=== PATIENT | female | born 1965 | race Caucasian/White ===

== ENCOUNTER 2019-06-10 20:58 | Inpatient (IN) ==
[2019-06-10 21:33] LABS: Basophils % 0.3 % (0.1-2.0); Eosinophils % 0.6 % (0.1-12.0); Hematocrit 40.5 % (37.0-47.0); Hemoglobin 12.8 g/dL (12.2-16.2); Lymphocytes # 0.4 K/mm3 (0.7-4.5); Lymphocytes % 12.1 % (10-50); Mean Corpuscular HGB Conc 31.7 g/dL (31.8-35.4); Mean Corpuscular Volume 87.5 fl (81-99); Monocytes # 0.1 K/mm3 (0.1-1.0); Neutrophils # 2.6 K/mm3 (1.8-7.8); Platelet Count 176 K/mm3 (142-424); Red Blood Count 4.63 M/mm3 (4.20-5.40); Red Cell Distribution Width 14.7 % (11.5-17.5)
[2019-06-10 21:47] LABS: Alanine Aminotransferase 13 U/L (12-78); Albumin Level 3.1 gm/dL (3.4-5.0); Albumin/Globulin Ratio 0.7 (1.1-1.8); Alkaline Phosphatase 171 U/L (46-116); Anion Gap 17.2 mEq/L (5-15); Aspartate Amino Transferase 11 U/L (15-37); Bilirubin,Total 0.9 mg/dL (0.2-1.0); Blood Urea Nitrogen 10 mg/dL (7-18); Calcium 9.1 mg/dL (8.5-10.1); Carbon Dioxide 22 mmol/L (21.0-32.0); Chloride 100 mmol/L (98-107); Globulin 4.7 gm/dl (1.3-3.2); Glucose 142 mg/dL (74-106); Sodium 136 mmol/L (136-145); Total Protein,Serum 7.8 gm/dL (6.4-8.2)
[2019-06-10 21:59] LABS: Microscopic, Urine URINE MICROSCOPIC (MICROSCOPIC)
[2019-06-10 22:03] LABS: Appearance,Urine CLEAR (Clear); Blood, Urine Negative (Negative); Color,Urine YELLOW (Yellow); Glucose,Urine (UA) Negative (Negative); Ketones,Urine Negative (Negative); Leukocyte Esterase,Urine TRACE (Negative); Protein,Urine Negative (Negative); Specific Gravity, Urine 1.025 (1.005-1.030)
[2019-06-10 22:04] LABS: Bilirubin,Urine Negative (Negative)
[2019-06-10 22:19] LABS: Amylase 23 U/L (25-115)
[2019-06-10 22:34] LABS: Bacteria,Urine Trace /lpf
--- NOTE | 2019-06-10 22:44 | Emergency Department Note ---
ED Disposition Clinical Impression: SIRS (systemic inflammatory response syndrome), Hypothyroidism (acquired) CAP (community acquired pneumonia) Qualifiers: Laterality: right Lung location: lower lobe of lung Qualified Code(s): J18.1 - Lobar pneumonia, unspecified organism Obesity Qualifiers: Obesity type: due to excess calories Obesity classification: adult class 3 (BMI >= 40) Serious obesity comorbidity presence: with serious comorbidity Body mass index: BMI 40.0-44.9 Qualified Code(s): E66.01 - Morbid (severe) obesity due to excess calories; Z68.41 - Body mass index (BMI) 40.0-44.9, adult Disposition: Admitted as Observation Condition on Discharge: Good Referrals: [place] Pereira APRN [Primary Care Provider] - - Critical Care Critical Care Time: No Attestation: On 06/10/19, the high probability of a clinically significant, sudden or life threatening deterioration of the following system(s) required my full and direct attention, intervention and personal management. The time I documented below is in addition to time spent performing reported procedures but includes the following listed in this critical care notation. Medical Decision Making - Medical Records Medical records reviewed: Yes: I reviewed the patient's medical records. - Anthony Inquiry Pt receiving controlled substance: No Vital Signs: 06/10/19 21:00 06/10/19 22:00 Temperature 99.9 F H Temperature Source Oral Pulse Rate [Right Brachial] 133 H 128 H Respiratory Rate 32 H 30 H Blood Pressure [Right Arm] 122/70 121/71 Blood Pressure Mean [Right Arm] 87 87 Blood Pressure Source [Right Arm] Automatic Cuff Automatic Cuff Blood Pressure Position [Right Arm] Sitting Sitting 02 Sat by Pulse Oximetry 97 97 Oxygen Delivery Method Room Air Room Air - Lab Data Lab results reviewed: Yes: I reviewed the patient's lab results. Lab Results 06/10/19 21:04: Influenza Type A Ag Negative, Influenza Type B Ag Negative 06/10/19 21:15: WBC 3.0 L, RBC 4.63, Hgb 12.8, Hct 40.5, MCV 87.5, MCH 27.8, MCHC 31.7 L, RDW 14.7, Plt Count 176, MPV 8.0, Neut % (Auto) 84.0 H, Lymph % (Auto) 12.1, [place] % (Auto) 3.0, Eos % (Auto) 0.6, Baso % (Auto) 0.3, Neut # (Auto) 2.6, Lymph # (Auto) 0.4 L, [place] # (Auto) 0.1, Eos # (Auto) 0.0, Baso # (Auto) 0.0 06/10/19 21:15: Sodium 136, Potassium 3.2 L, Chloride 100, Carbon Dioxide 22, Anion Gap 17.2 H, BUN 10, Creatinine 0.94, Estimated Creat Clear 61, Estimated GFR 62, Est GFR ( Amer) 75, Glucose 142 H, Calcium 9.1, Total Bilirubin 0.9, AST 11 L, ALT 13, Alkaline Phosphatase 171 H, Troponin I < 0.02, Total Protein 7.8, Albumin 3.1 L, Globulin 4.7 H, Albumin/Globulin Ratio 0.7 L 06/10/19 21:15: Lactate 1.2 06/10/19 21:15: Amylase 23 L, Lipase 55 L 06/10/19 21:50: Urine Color Yellow, Urine Appearance Clear, Urine pH 5.0, Ur Specific [place] 1.025, Urine Protein Negative, Urine Glucose (UA) Negative, Urine Ketones Negative, Urine Blood Negative, Urine Nitrate Positive, Urine Bilirubin Negative, Urine Urobilinogen 1.0, Ur Leukocyte Esterase Trace, Urine WBC 3-5, Ur Squamous Epith Cells 3-5, Urine Bacteria Trace Result diagrams: 06/10/19 21:15 06/10/19 21:15 Orders (Tests/Meds): ED MEDICATIONS Generic Name Dose Route Start Last Admin Trade Name Freq PRN Reason Stop Dose Admin Sodium Chloride 1,000 mls @ 999 mls/hr 06/10/19 21:30 06/10/19 21:25 Sod Chlor 0.9% 1000ml Bag IV 06/10/19 22:30 999 mls/hr .[id number] EUSEBIO Administration Discontinued Medications Generic Name Dose Route Start Last Admin Trade Name Freq PRN Reason Stop Dose Admin Ibuprofen 400 mg 06/10/19 21:18 06/10/19 21:26 Motrin 400mg Tablet PO 06/10/19 21:19 Not Given ONCE ONE Ibuprofen 600 mg 06/10/19 21:21 06/10/19 21:25 Motrin 400mg Tablet PO 06/10/19 21:22 600 mg ONCE ONE Administration Ondansetron HCl 4 mg 10/16/19 22:03 06/10/19 22:06 Zofran 4mg/2ml Vial IV 06/10/19 22:04 4 mg ONCE ONE Administration ORDERS Category Date Time Status CT abdomen pelvis wo con Stat Cat Scan 06/10/19 21:59 Ordered XR chest 2V Stat Exams 06/10/19 21:14 Taken Diarrhea 23 Panel, PCR Stat Lab 06/10/19 21:14 Ordered Blood Culture Stat Micro 06/10/19 21:15 Received - Radiology Data #1 Image(s): Chest Image Reviewed: Yes I reviewed the patient's radiology image Preliminary Findings: Abnormal (rt lower changes ) - CT Data CT Scan: Abdomen, Pelvis Time Received: 22:[address] Reviewed: Yes: I have viewed the radiologist's interpretation Preliminary Findings: Normal/NAD - ECG Data Tracing #1 Arrhythmias present: sinus tach Ischemic changes: non-specific ST-T wave changes Nausea/Vomiting/Diarrhea HPI - General Chief complaint: Fever Stated complaint: fever, chills Time Seen by Provider: 06/10/19 21:15 Mode of Arrival: Ambulatory Source of Information: Patient, Relative, Medical Record Limitations: No Limitations Description of Symptoms (Recalled from ER Triage Doc. by RN): Pt c/o fever, cough, chills, vomiting, and weak, pt reports her symptoms started on saturday. no other sympotms reported at this time. 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 with no rash or vomiting and no diarrhea MD complaint: nausea, vomiting Onset (ago): day(s) Associated Abdominal Pain: Yes Associated symptoms: denies other symptoms - Related Data Home Medications Medication Instructions Recorded Confirmed aspirin 81 mg tablet,delayed 81 mg PO QHS tab 09/18/18 06/10/19 release atorvastatin 20 mg tablet 20 mg PO QHS 09/18/18 06/10/19 cholecalciferol (vitamin D3) 1,000 1,000 unit PO DAILY 09/18/18 06/10/19 unit capsule escitalopram 20 mg tablet 75 mg PO DAILY 09/18/18 06/10/19 levothyroxine 100 mcg tablet 100 mcg PO DAILY 09/18/18 06/10/19 montelukast 10 mg tablet 10 mg PO QPM 09/18/18 06/10/19 pantoprazole 40 mg tablet,delayed 40 mg PO DAILY 09/18/18 06/10/19 release potassium chloride ER 20 mEq 20 meq PO DAILY 09/18/18 06/10/19 tablet,extended release topiramate 100 mg tablet 100 mg PO DAILY tab 09/18/18 06/10/19 trazodone 50 mg tablet 50 mg PO QHS tab 09/18/18 06/10/19 Cetirizine HCl [Zyrtec] 10 mg PO DAILY 06/10/19 06/10/19 Docusate Sodium [Colace] 100 mg PO DAILY 06/10/19 06/10/19 Nystatin [Nystatin Cr 100,000 1,000 units TOPICAL DAILY 06/10/19 06/10/19 Units/GM 30GM] Allergies Allergy/AdvReac Type Severity Reaction Status Date / Time acetaminophen [From PERCOCET] Allergy Unknown UPSET Verified 09/22/18 09:49 STOMACH codeine [CODEINE] Allergy Unknown STOMACH Verified 09/22/18 09:49 UPSET hydrocodone [HYDROCODONE] Allergy Unknown Verified 09/22/18 09:49 hydromorphone [From DILAUDID] Allergy Unknown HEART STOP Verified 09/22/18 09:49 oxycodone [From PERCOCET] Allergy Unknown UPSET Verified 09/22/18 09:49 STOMACH Sulfa (Sulfonamide Allergy Unknown Verified 09/22/18 09:49 Antibiotics) [SULFA (SULFONAMIDE ANTIBIOTICS)] [facility] History - Hepatitis A Screen Drug use history?: No High risk sexual behaviors?: No History of sexually transmitted infection?: No Currently employed?: No Childcare worker?: No Do you have indoor plumbing?: Yes Do you have electricity?: Yes Attestation statement:: This patient has been screened for Hepatitis A risk factors. I have reviewed the patient's past medical history: Yes Medical History: Reports:: Atherosclerotic Heart Disease, Hypertension, Urinary Tract Infection Denies:: Diabetes Mellitus Type 1, Diabetes Mellitus Type 2 Comment: History of cardiac stents and hypertension - Social History Smoking Status: Never smoker Alcohol Intake: never Occupational Status: unemployed Housing: house ROS Obtained: Yes All systems reviewed & no additional complaints - Constitutional Constitutional: Denies fever(s) - Eyes Eyes: Denies change in vision - ENT Ears, Nose, Mouth, and Throat: Denies sore throat - Cardiovascular Cardiovascular: Denies chest pain - Respiratory Respiratory: Yes cough - Gastrointestinal Gastrointestingal: Denies: abdominal pain - Genitourinary Female Genitourinary: Denies hematuria - Musculoskeletal Musculoskeletal: Denies joint pain - Integumentary/Breasts Skin/Breast: Denies rash - Neurologic Neurologic: Denies seizure-like activity Physical Exam - General General appearance: alert, obese - Head Head exam: normocephalic - Eye Eye exam: Present: PERRL, EOMI. Absent: scleral icterus - ENT ENT exam: Present: mucous membranes dry - Neck Neck exam: Present: trachea midline - Respiratory Respiratory exam: Present: other (dec bs bilat ). Absent: respiratory distress - Cardiovascular Cardiovascular exam: Present: regular rate, systolic murmur - Abdominal Exam Abdominal exam: Present: soft. Absent: tenderness - Extremities Exam Extremities exam: Absent: calf tenderness - Neurological Exam Neurological exam: Present: alert, CN II-XII intact - Psychiatric Psychiatric exam: Present: normal affect - Skin Skin exam: Absent: rash
[2019-06-11 07:16] LABS: Anion Gap 15.1 mEq/L (5-15); Calcium 8.4 mg/dL (8.5-10.1)
--- NOTE | 2019-06-11 07:23 | Pharmacy Consult Notes ---
[facility] Pharmacy VTE Monitoring - Patient Demographics Admission date: 06/11/19 Report Date: 06/11/19 Time: 07:23 Allergies/Adverse Reactions: Patient Allergies acetaminophen [From PERCOCET] Allergy (Unknown, Verified 09/22/18 09:49) UPSET STOMACH codeine [CODEINE] Allergy (Unknown, Verified 09/22/18 09:49) STOMACH UPSET hydrocodone [HYDROCODONE] Allergy (Unknown, Verified 09/22/18 09:49) hydromorphone [From DILAUDID] Allergy (Unknown, Verified 09/22/18 09:49) HEART STOP oxycodone [From PERCOCET] Allergy (Unknown, Verified 09/22/18 09:49) UPSET STOMACH Sulfa (Sulfonamide Antibiotics) [SULFA (SULFONAMIDE ANTIBIOTICS)] Allergy (Unknown, Verified 09/22/18 09:49) Height: 1.65 m Weight: 117.084 kg Patient Problems: Current Active Problems CAP (community acquired pneumonia) (Acute) SIRS (systemic inflammatory response syndrome) (Acute) Obesity (Acute) Hypothyroidism (acquired) (Acute) - VTE Risk Labs: VTE Related Lab Results Hgb 12.8 g/dL (12.2-16.2) 06/10/19 21:15 Hct 40.5 % (37.0-47.0) 06/10/19 21:15 Plt Count 176 K/mm3 (142-424) 06/10/19 21:15 BUN 8 mg/dL (7-18) 06/11/19 06:50 Creatinine 0.84 mg/dL (0.55-1.02) 06/11/19 06:50 Estimated Creat Clear 68 mL/min (50-200) 06/11/19 06:50 Was VTE Risk Assessment Performed: Yes VTE Score: 5 VTE Risk Level: Low Risk Clinical Trial Participant: No - Prophylaxis VTE Prophylaxis Ordered?: Yes Types of VTE Prophylaxis: TEDS Knee High
[2019-06-11 07:25] LABS: Basophils % 0.3 % (0.1-2.0); Eosinophils % 0.3 % (0.1-12.0); Hematocrit 38.5 % (37.0-47.0); Hemoglobin 11.9 g/dL (12.2-16.2); Lymphocytes % 12.7 % (10-50); Mean Corpuscular HGB Conc 30.9 g/dL (31.8-35.4); Mean Corpuscular Volume 88.9 fl (81-99); Mean Platelet Volume 8.7 fl (7.4-10.4); Monocytes # 0.4 K/mm3 (0.1-1.0); Monocytes % 5.3 % (1.7-9.3); Neutrophils # 6.4 K/mm3 (1.8-7.8); Neutrophils % 81.5 % (37.0-80.0); Platelet Count 186 K/mm3 (142-424); Red Blood Count 4.33 M/mm3 (4.20-5.40); Red Cell Distribution Width 14.7 % (11.5-17.5); White Blood Count 7.9 K/mm3 (4.8-10.8)
--- NOTE | 2019-06-11 09:28 | History & Physical Report ---
*Admission Date: 06/11/19 *Chief complaint: cough *History of present illness: 54-year-old female presented to the ER with complaints of cough, weakness, shortness of breath,and fever. Patient was admitted for possible UTI and pneumonia. Patient reports a history of 3 cardiac stents, hypothyroidism, stress incontinence. Patient was admitted placed on IV antibiotics. [facility] History I have reviewed the patient's past medical history: Yes Medical History: Reports:: Atherosclerotic Heart Disease, Coronary Artery Disease, Hyperlipidemia, Hypertension, Urinary Tract Infection Denies:: Cancer, Diabetes Mellitus Type 1, Diabetes Mellitus Type 2, MRSA *Have you ever received a pneumonia vaccine?: Yes *Have you received a flu vaccine this season?: No Other Medical History: Reports: Arthritis, Hypothyroidism Laterality Cases: Bilateral: Total Knee Replacement Other Surgeries: Yes: Appendectomy, Cholecystectomy, Coronary Stent, Hysterectomy-Total Amputation: No Fractures: No - *Social History Educational Level: Completed High School Smoking Status: Former smoker Tobacco Type: cigarettes # Packs/Day (cigarettes): 1 #Yrs smoked (if former smoker): 30 Smoking End Date: 2008 Alcohol Intake: former Alcohol Intake Frequency:: holidays/special occasions only *Occupational Status:: unemployed, disabled Housing: house Household Members: family *Travel in the last 8 weeks: None Family Hx:: Cancer, Coronary Artery Disease, Hypertension, Stroke Review of Systems - Review of Systems Review of systems:: pertinent systems reviewed and negative unless documented below - Constitutional Reports chills, Reports fever(s), Reports weakness - Eyes Denies irritation - ENT Denies sinus pressure - *Cardiovascular Reports shortness of breath, Denies chest pain at rest - *Respiratory Reports chest congestion, Reports cough, Reports shortness of breath - *Gastrointestinal Denies nausea, Denies vomiting - *Genitourinary Reports urinary incontinence - *Musculoskeletal Denies loss of height - Integumentary/Breasts Denies rash - *Neurologic Denies seizure-like activity - Psychiatric Denies anxiety - Endocrine Denies flushing - Hematologic/Lymphatic Denies enlarged lymph nodes - Allergic/Immunologic Denies tongue swelling Meds Home Medications Medication Instructions Recorded Confirmed Type aspirin 81 mg tablet,delayed 81 mg PO HS tab 09/18/18 06/11/19 History release atorvastatin 20 mg tablet 20 mg PO HS 09/18/18 06/11/19 History cholecalciferol (vitamin D3) 1,000 1,000 unit PO DAILY 09/18/18 06/10/19 History unit capsule levothyroxine 100 mcg tablet 100 mcg PO DAILY 09/18/18 06/10/19 History montelukast 10 mg tablet 10 mg PO HS 09/18/18 06/11/19 History pantoprazole 40 mg tablet,delayed 40 mg PO DAILY 09/18/18 06/10/19 History release potassium chloride ER 20 mEq 20 meq PO DAILY 09/18/18 06/10/19 History tablet,extended release topiramate 100 mg tablet 100 mg PO DAILY tab 09/18/18 06/10/19 History trazodone 50 mg tablet 25 - 50 mg PO HSP PRN tab 09/18/18 06/11/19 History Cetirizine HCl [Zyrtec] 10 mg PO DAILY 06/10/19 06/10/19 History Docusate Sodium [Colace] 100 mg PO DAILY 06/10/19 06/10/19 History Nystatin [Nystatin Cr 100,000 1,000 units TOPICAL BID 06/10/19 06/11/19 History Units/GM 30GM] Calcium Carbonate [Calcium] 600 mg PO DAILY 06/11/19 06/11/19 History Estrogens, Conjugated [Premarin] 0.625 mg PO DAILY 06/11/19 06/11/19 History Lubiprostone [Amitiza] 8 mcg PO DAILY 06/11/19 06/11/19 History Sertraline HCl [Zoloft 50mg tablet] 25 mg PO DAILY 06/11/19 06/11/19 History Sertraline HCl [Zoloft] 50 mg PO HS 06/11/19 06/11/19 History Allergies Allergy/AdvReac Type Severity Reaction Status Date / Time acetaminophen [From PERCOCET] Allergy Unknown UPSET Verified 09/22/18 09:49 STOMACH codeine [CODEINE] Allergy Unknown STOMACH Verified 09/22/18 09:49 UPSET hydrocodone [HYDROCODONE] Allergy Unknown Verified 09/22/18 09:49 hydromorphone [From DILAUDID] Allergy Unknown HEART STOP Verified 09/22/18 09:49 oxycodone [From PERCOCET] Allergy Unknown UPSET Verified 09/22/18 09:49 STOMACH Sulfa (Sulfonamide Allergy Unknown Verified 09/22/18 09:49 Antibiotics) [SULFA (SULFONAMIDE ANTIBIOTICS)] Exam Vital signs and Labs for Last 24 Hours: Temp Pulse Resp BP Pulse Ox 98.4 F 80 18 112/62 96 06/11/19 08:00 06/11/19 08:00 06/11/19 08:00 06/11/19 08:00 06/11/19 08:00 Laboratory Results - last 24 hr 06/10/19 21:04: Influenza Type A Ag Negative, Influenza Type B Ag Negative 06/10/19 21:15: WBC 3.0 L, RBC 4.63, Hgb 12.8, Hct 40.5, MCV 87.5, MCH 27.8, MCHC 31.7 L, RDW 14.7, Plt Count 176, MPV 8.0, Neut % (Auto) 84.0 H, Lymph % (Auto) 12.1, [place] % (Auto) 3.0, Eos % (Auto) 0.6, Baso % (Auto) 0.3, Neut # (Auto) 2.6, Lymph # (Auto) 0.4 L, [place] # (Auto) 0.1, Eos # (Auto) 0.0, Baso # (Auto) 0.0 06/10/19 21:15: Sodium 136, Potassium 3.2 L, Chloride 100, Carbon Dioxide 22, Anion Gap 17.2 H, BUN 10, Creatinine 0.94, Estimated Creat Clear 61, Estimated GFR 62, Est GFR ( Amer) 75, Glucose 142 H, Calcium 9.1, Total Bilirubin 0.9, AST 11 L, ALT 13, Alkaline Phosphatase 171 H, Troponin I < 0.02, Total Protein 7.8, Albumin 3.1 L, Globulin 4.7 H, Albumin/Globulin Ratio 0.7 L 06/10/19 21:15: Lactate 1.2 06/10/19 21:15: Amylase 23 L, Lipase 55 L 06/10/19 21:50: Urine Color Yellow, Urine Appearance Clear, Urine pH 5.0, Ur Specific [place] 1.025, Urine Protein Negative, Urine Glucose (UA) Negative, Urine Ketones Negative, Urine Blood Negative, Urine Nitrate Positive, Urine Bilirubin Negative, Urine Urobilinogen 1.0, Ur Leukocyte Esterase Trace, Urine WBC 3-5, Ur Squamous Epith Cells 3-5, Urine Bacteria Trace 06/11/19 06:50: WBC 7.9 D, RBC 4.33, Hgb 11.9 L, Hct 38.5, MCV 88.9, MCH 27.5, MCHC 30.9 L, RDW 14.7, Plt Count 186, MPV 8.7, Neut % (Auto) 81.5 H, Lymph % (Auto) 12.7, [place] % (Auto) 5.3, Eos % (Auto) 0.3, Baso % (Auto) 0.3, Neut # (Auto) 6.4, Lymph # (Auto) 1.0, [place] # (Auto) 0.4, Eos # (Auto) 0.0, Baso # (Auto) 0.0 06/11/19 06:50: Sodium 141, Potassium 3.1 L, Chloride 106, Carbon Dioxide 23, Anion Gap 15.1 H, BUN 8, Creatinine 0.84, Estimated Creat Clear 68, Estimated GFR 70, Est GFR ( Amer) 85, Glucose 122 H, Calcium 8.4 L, Magnesium 1.4 I & O for Last 24 hours: Intake & Output 06/08/19 06/09/19 06/10/19 06/11/19 11:59 11:59 11:59 11:59 Intake Total 1160 / 1160 Output Total 900 / 900 Balance 260 / 260 Weight 258 lb 2 oz - Constitutional no acute distress - *Routine HEENT Exam Head: Present: normocephalic Eye: Present: PERRL ENT: Present: mucous membranes moist - *Routine Neck Exam Present: supple - *Routine Respiratory Exam Present: decreased breath sounds, wheezes - *Routine Cardiovascular Exam Present: RRR - *Routine Abdominal Exam Present: soft, normoactive bowel sounds. Absent: tenderness - *Routine Extremities Exam Present: full ROM. Absent: cyanosis, clubbing, edema - *Routine Skin Exam Present: intact, warm. Absent: rash - *Routine Neurological Exam Present: alert, oriented X3 - Routine Psychiatric Exam Present: normal affect Assessment and Plan (1) UTI (urinary tract infection), bacterial Current visit: Yes Status: Acute Category: Medical Code(s): N39.0 - Urinary tract infection, site not specified; A49.9 - Bacterial infection, unspecified (2) CAP (community acquired pneumonia) Current visit: Yes Status: Acute Qualifiers: Laterality: right Lung location: lower lobe of lung Qualified Code(s): J18.1 - Lobar pneumonia, unspecified organism Category: Medical Code(s): J18.9 - Pneumonia, unspecified organism (3) Hypothyroidism (acquired) Current visit: Yes Status: Acute Category: Medical Code(s): E03.9 - Hypothyroidism, unspecified (4) Obesity Current visit: Yes Status: Acute Qualifiers: Obesity type: due to excess calories Obesity classification: adult class 3 (BMI >= 40) Serious obesity comorbidity presence: with serious comorbidity Body mass index: BMI 40.0-44.9 Qualified Code(s): E66.01 - Morbid (severe) obesity due to excess calories; Z68.41 - Body mass index (BMI) 40.0-44.9, adult Category: Medical Code(s): E66.9 - Obesity, unspecified (5) SIRS (systemic inflammatory response syndrome) Current visit: Yes Status: Acute Category: Medical Code(s): R65.10 - Systemic inflammatory response syndrome (SIRS) of non-infectious origin without acute organ dysfunction - Assessment and plan all Dx Assessment and Plan for all problems:: Rounded with Dr. Cameron all orders per Nisha
[2019-06-12 07:25] LABS: Basophils % 0.4 % (0.1-2.0); Eosinophils # 0.1 K/mm3 (0.0-0.4); Eosinophils % 1.4 % (0.1-12.0); Hematocrit 35.2 % (37.0-47.0); Hemoglobin 11.2 g/dL (12.2-16.2); Lymphocytes # 2.3 K/mm3 (0.7-4.5); Lymphocytes % 31.8 % (10-50); Mean Corpuscular HGB Conc 31.9 g/dL (31.8-35.4); Mean Corpuscular Volume 88.2 fl (81-99); Mean Platelet Volume 8.2 fl (7.4-10.4); Monocytes # 0.3 K/mm3 (0.1-1.0); Monocytes % 4.5 % (1.7-9.3); Neutrophils # 4.4 K/mm3 (1.8-7.8); Neutrophils % 61.9 % (37.0-80.0); Platelet Count 186 K/mm3 (142-424); Red Cell Distribution Width 14.3 % (11.5-17.5); White Blood Count 7.1 K/mm3 (4.8-10.8)
[2019-06-12 07:39] LABS: Calcium 8.3 mg/dL (8.5-10.1)
--- NOTE | 2019-06-12 09:19 | Progress Note ---
Internal Medicine - PN: Subj *Date: 06/12/19 *Time: 09:17 Interval history: Today patient states she is feeling a little bit better. Exam Vital signs and Labs for Last 24 Hours: Temp Pulse Resp BP Pulse Ox 98.2 F 66 18 109/68 L 95 06/12/19 08:00 06/12/19 08:00 06/12/19 08:00 06/12/19 08:00 06/12/19 08:00 Laboratory Results - last 24 hr 06/12/19 07:05: WBC 7.1, RBC 4.00 L, Hgb 11.2 L, Hct 35.2 L, MCV 88.2, MCH 28.1, MCHC 31.9, RDW 14.3, Plt Count 186, MPV 8.2, Neut % (Auto) 61.9, Lymph % (Auto) 31.8, [place] % (Auto) 4.5, Eos % (Auto) 1.4, Baso % (Auto) 0.4, Neut # (Auto) 4.4, Lymph # (Auto) 2.3, [place] # (Auto) 0.3, Eos # (Auto) 0.1, Baso # (Auto) 0.0 06/12/19 07:05: Sodium 143, Potassium 3.0 L, Chloride 108 H, Carbon Dioxide 24, Anion Gap 14.0, BUN 9, Creatinine 0.82, Estimated Creat Clear 70, Estimated GFR 72, Est GFR ( Amer) 88, Glucose 121 H, Calcium 8.3 L I & O for Last 24 hours: Intake & Output 06/09/19 06/10/19 06/11/19 06/12/19 11:59 11:59 11:59 11:59 Intake Total 1160 / 1160 2902 / 2902 Output Total 900 / 900 Balance 260 / 260 2902 / 2902 Weight 258 lb 2 oz 258 lb 2 oz Microbiology Reports for the Last 24 Hours: Microbiology 06/10/19 21:15 Blood Blood Culture - Preliminary Gram Negative Rods 06/10/19 21:15 Blood Blood Culture - Preliminary Gram Negative Rods 06/10/19 21:40 Urine,Clean Catch Urine Culture - Preliminary Gram Negative Rods - Constitutional no acute distress - *Routine HEENT Exam Head: Present: normocephalic Eye: Present: PERRL ENT: Present: mucous membranes moist - *Routine Neck Exam Present: supple. Absent: lymphadenopathy - *Routine Respiratory Exam Present: decreased breath sounds, CTA bilaterally - *Routine Cardiovascular Exam Present: RRR - *Routine Abdominal Exam Present: soft, normoactive bowel sounds. Absent: tenderness - *Routine Extremities Exam Present: full ROM. Absent: cyanosis, clubbing, edema - *Routine Skin Exam Present: warm. Absent: rash - *Routine Neurological Exam Present: alert, oriented X3 - Routine Psychiatric Exam Present: normal affect Assessment and Plan (1) UTI (urinary tract infection), bacterial Current visit: Yes Status: Acute Category: Medical Code(s): N39.0 - Urinary tract infection, site not specified; A49.9 - Bacterial infection, unspecified (2) CAP (community acquired pneumonia) Current visit: Yes Status: Acute Qualifiers: Laterality: right Lung location: lower lobe of lung Qualified Code(s): J18.1 - Lobar pneumonia, unspecified organism Category: Medical Code(s): J18.9 - Pneumonia, unspecified organism (3) Hypothyroidism (acquired) Current visit: Yes Status: Acute Category: Medical Code(s): E03.9 - Hypothyroidism, unspecified (4) Obesity Current visit: Yes Status: Acute Qualifiers: Obesity type: due to excess calories Obesity classification: adult class 3 (BMI >= 40) Serious obesity comorbidity presence: with serious comorbidity Body mass index: BMI 40.0-44.9 Qualified Code(s): E66.01 - Morbid (severe) obesity due to excess calories; Z68.41 - Body mass index (BMI) 40.0-44.9, adult Category: Medical Code(s): E66.9 - Obesity, unspecified (5) SIRS (systemic inflammatory response syndrome) Current visit: Yes Status: Acute Category: Medical Code(s): R65.10 - Systemic inflammatory response syndrome (SIRS) of non-infectious origin without acute organ dysfunction (6) Bacteremia Current visit: Yes Status: Acute Category: Medical Code(s): R78.81 - Bacteremia - Assessment and plan all Dx Assessment and Plan for all problems:: Rounded with Dr. Cameron all orders per Nisha Wait for blood cultures and urine bacteria to be identified
--- NOTE | 2019-06-12 13:50 | Electrocardiograph Report ---
APPROVED REPORT Exam: Resting ECG HR:120 bpm ECG Measurements Heart Rate 120 AXES [place] 138 P -1 QRSd 80 QRS 49 QT 290 T39 QTc 409 <Conclusion> Sinus tachycardia Nonspecific ST-T abnormalities Abnormal ECG Electronically signed by : Virgil Dumont, 06/12/2019 13:50:46
[2019-06-13 06:59] LABS: Basophils % 0.7 % (0.1-2.0); Eosinophils # 0.1 K/mm3 (0.0-0.4); Eosinophils % 1.5 % (0.1-12.0); Hemoglobin 10.2 g/dL (12.2-16.2); Lymphocytes # 2.4 K/mm3 (0.7-4.5); Lymphocytes % 37.9 % (10-50); Mean Corpuscular HGB Conc 31.9 g/dL (31.8-35.4); Mean Platelet Volume 8.6 fl (7.4-10.4); Monocytes # 0.2 K/mm3 (0.1-1.0); Monocytes % 3.4 % (1.7-9.3); Neutrophils # 3.5 K/mm3 (1.8-7.8); Neutrophils % 56.6 % (37.0-80.0); Platelet Count 187 K/mm3 (142-424); Red Blood Count 3.63 M/mm3 (4.20-5.40); Red Cell Distribution Width 14.2 % (11.5-17.5); White Blood Count 6.2 K/mm3 (4.8-10.8)
[2019-06-13 07:11] LABS: Calcium 7.9 mg/dL (8.5-10.1)
--- NOTE | 2019-06-13 10:10 | Discharge Summary ---
General - General Admission date:: 06/10/19 <Hayes Turner - 06/13/19 12:48> 06/10/19 <zachariahKemi jacobsmadelyn - 06/13/19 10:10> Discharge date: 06/13/19 <Kemi Soriamariselaantonio - 06/13/19 10:10> HPI HPI: 54-year-old female presented to the ER with complaints of cough, weakness, shortness of breath,and fever. Patient was admitted for possible UTI and pneumonia. Patient reports a history of 3 cardiac stents, hypothyroidism, stress incontinence. Patient was admitted placed on IV antibiotics. <Kemi Soriamadelyn - 06/13/19 10:10> Hospital Course Hospital Course: Rounded with nurse practitioner. Agree with exam findings and care plan as documented. <Hayes Turner - 06/13/19 12:48> UTI-urine culture positive for E. coli sensitive to Rocephin Bacteremia-culture positive for E. coli sensitive to Rocephin Patient will be discharged home with home health to finish out 6 more days of 1 g of Rocephin per PICC line to cover E. coli. Patient is to follow-up in the office next week she will call for an appointment. Patient states she is sitting up most of the day in the chair and going to the bathroom by herself states she feels okay to go home. ct abd/pelvis:IMPRESSION: 1. No acute abdominal or pelvic findings. 2. Postsurgical changes from prior cholecystectomy, appendectomy, and hysterectomy 3. Mild splenomegaly. 4. Nonobstructing punctate bilateral renal calculi chest x ray on admission: IMPRESSION: Mild atelectatic change right upper lobe chest x ray 06/12- clear no infiltrates <Kemi Soriamadelyn - 06/13/19 10:20> Objective Vital signs: Temp Pulse Resp BP Pulse Ox 98.1 F 71 16 167/84 H 97 06/13/19 08:00 06/13/19 08:00 06/13/19 08:00 06/13/19 08:00 06/13/19 08:00 <Hayes Turner - 06/13/19 12:48> Temp Pulse Resp BP Pulse Ox 98.1 F 71 16 167/84 H 94 L 06/13/19 08:00 06/13/19 08:00 06/13/19 08:00 06/13/19 08:00 06/13/19 08:00 <Jose Eduardo Soria - 06/13/19 10:10> no acute distress <Jose Eduardo Soria - 06/13/19 10:20> - *Routine Respiratory Exam Present: CTA bilaterally <Jose Eduardo Soria - 06/13/19 10:20> - *Routine Cardiovascular Exam Present: RRR <Jose Eduardo Soria - 06/13/19 10:20> - *Routine Abdominal Exam Present: soft, normoactive bowel sounds. Absent: tenderness <Jose Eduardo Soria - 06/13/19 10:20> - *Routine Extremities Exam Present: full ROM <Jose Eduardo Soria - 06/13/19 10:20> - *Routine Skin Exam Present: intact <Jose Eduardo Soria - 06/13/19 10:20> - *Routine Neurological Exam Present: alert, oriented X3 <Jose Eduardo Soria - 06/13/19 10:20> - Routine Psychiatric Exam Present: normal affect <Jose Eduardo Soria - 06/13/19 10:20> Results Labs on day of discharge: Labs from last 24 hours 06/13/19 06/13/19 06:49 06:49 WBC 6.2 RBC 3.63 L Hgb 10.2 L Hct 32.0 L MCV 88.0 MCH 28.1 MCHC 31.9 RDW 14.2 Plt Count 187 MPV 8.6 Neut % (Auto) 56.6 Lymph % (Auto) 37.9 Cochran % (Auto) 3.4 Eos % (Auto) 1.5 Baso % (Auto) 0.7 Neut # (Auto) 3.5 Lymph # (Auto) 2.4 Cochran # (Auto) 0.2 Eos # (Auto) 0.1 Baso # (Auto) 0.0 Sodium 144 Potassium 3.0 L Chloride 110 H Carbon Dioxide 25 Anion Gap 12.0 BUN 7 Creatinine 0.73 Estimated Creat Clear 75 Estimated GFR 83 Est GFR ( Amer) 100 Glucose 110 H Calcium 7.9 L Preliminary micro results at discharge 06/12/19 10:35 Sputum Culture - Preliminary Sputum - Expectorated Sputum Gram Positive Cocci <Hayes Turner - 06/13/19 12:48> Labs from last 24 hours 06/13/19 06/13/19 06:49 06:49 WBC 6.2 RBC 3.63 L Hgb 10.2 L Hct 32.0 L MCV 88.0 MCH 28.1 MCHC 31.9 RDW 14.2 Plt Count 187 MPV 8.6 Neut % (Auto) 56.6 Lymph % (Auto) 37.9 Cochran % (Auto) 3.4 Eos % (Auto) 1.5 Baso % (Auto) 0.7 Neut # (Auto) 3.5 Lymph # (Auto) 2.4 Cochran # (Auto) 0.2 Eos # (Auto) 0.1 Baso # (Auto) 0.0 Sodium 144 Potassium 3.0 L Chloride 110 H Carbon Dioxide 25 Anion Gap 12.0 BUN 7 Creatinine 0.73 Estimated Creat Clear 75 Estimated GFR 83 Est GFR ( Amer) 100 Glucose 110 H Calcium 7.9 L <Jose Eduardo Soria - 06/13/19 10:10> - Additional Comments Dr turner to see pt later today.Discussed pt with dr turner <Jose Eduardo Soria - 06/13/19 10:20> DS: Diagnosis - Discharge Diagnosis (1) UTI (urinary tract infection), bacterial Status: Acute (2) CAP (community acquired pneumonia) Status: Acute (3) Hypothyroidism (acquired) Status: Acute (4) Obesity Status: Acute (5) SIRS (systemic inflammatory response syndrome) Status: Acute (6) Bacteremia Status: Acute (7) E-coli UTI Status: Acute (8) Bacteremia, escherichia coli Status: Acute <Jose Eduardo Soria - 06/13/19 10:15> (1) UTI (urinary tract infection), bacterial Status: Acute (2) CAP (community acquired pneumonia) Status: Acute (3) Hypothyroidism (acquired) Status: Acute (4) Obesity Status: Acute (5) SIRS (systemic inflammatory response syndrome) Status: Acute (6) Bacteremia Status: Acute (7) E-coli UTI Status: Acute (8) Bacteremia, escherichia coli Status: Acute <Hayes Turner - 06/13/19 12:48> Discharge Plan - Patient Discharge Instructions ACTIVITY: Continue current activity <Jose Eduardo Soria - 06/13/19 10:20> DIET: continue same diet <Jose Eduardo Soria - 06/13/19 10:20> Patient Instructions: DI for Pneumonia -- Adult, DI for Hypothyroidism <Hayes Turner - 06/13/19 12:48> Forms: <Hayes Turner - 06/13/19 12:48> - Follow up Plan Follow up with: Irving Ramachandran APRN [Nurse Practitioner] - 06/18/19 <Hayes Turner - 06/13/19 12:48> Disposition: Home, Self-Care <Hayes Turner - 06/13/19 12:48> Home Medications: Home Medications Medication Instructions Recorded Confirmed Type aspirin 81 mg tablet,delayed 81 mg PO HS tab 09/18/18 06/11/19 History release atorvastatin 20 mg tablet 20 mg PO HS 09/18/18 06/11/19 History cholecalciferol (vitamin D3) 1,000 1,000 unit PO DAILY 09/18/18 06/10/19 History unit capsule levothyroxine 100 mcg tablet 100 mcg PO DAILY 09/18/18 06/10/19 History montelukast 10 mg tablet 10 mg PO HS 09/18/18 06/11/19 History pantoprazole 40 mg tablet,delayed 40 mg PO DAILY 09/18/18 06/10/19 History release potassium chloride ER 20 mEq 20 meq PO DAILY 09/18/18 06/10/19 History tablet,extended release topiramate 100 mg tablet 100 mg PO DAILY tab 09/18/18 06/10/19 History trazodone 50 mg tablet 25 - 50 mg PO HSP PRN tab 09/18/18 06/11/19 History Cetirizine HCl [Zyrtec] 10 mg PO DAILY 06/10/19 06/10/19 History Docusate Sodium [Colace] 100 mg PO DAILY 06/10/19 06/10/19 History Nystatin [Nystatin Cr 100,000 1,000 units TOPICAL BID 06/10/19 06/11/19 History Units/GM 30GM] Calcium Carbonate [Calcium] 600 mg PO DAILY 06/11/19 06/11/19 History Estrogens, Conjugated [Premarin] 0.625 mg PO DAILY 06/11/19 06/11/19 History Lubiprostone [Amitiza] 8 mcg PO DAILY 06/11/19 06/11/19 History Sertraline HCl [Zoloft 50mg tablet] 25 mg PO DAILY 06/11/19 06/11/19 History Sertraline HCl [Zoloft] 50 mg PO HS 06/11/19 06/11/19 History Ceftriaxone Sodium [Rocephin 1gm 1 gm IV Q24H 6 Days #6 vial 06/13/19 Rx vial] <Hayes Turner - 06/13/19 12:48> Prescriptions/Medication Reconciliation: New Ceftriaxone Sodium [Rocephin 1gm vial] 1 gm IV Q24H 6 Days #6 vial Continued aspirin 81 mg tablet,delayed release 81 mg PO HS tab cholecalciferol (vitamin D3) 1,000 unit capsule 1,000 unit PO DAILY atorvastatin 20 mg tablet 20 mg PO HS levothyroxine 100 mcg tablet 100 mcg PO DAILY montelukast 10 mg tablet 10 mg PO HS potassium chloride ER 20 mEq tablet,extended release 20 meq PO DAILY pantoprazole 40 mg tablet,delayed release 40 mg PO DAILY trazodone 50 mg tablet 25 - 50 mg PO HSP PRN tab PRN Reason: Sleep topiramate 100 mg tablet 100 mg PO DAILY tab Nystatin [Nystatin Cr 100,000 Units/GM 30GM] 1,000 units TOPICAL BID Cetirizine HCl [Zyrtec] 10 mg PO DAILY Estrogens, Conjugated [Premarin] 0.625 mg PO DAILY Lubiprostone [Amitiza] 8 mcg PO DAILY Sertraline HCl [Zoloft] 50 mg PO HS Docusate Sodium [Colace] 100 mg PO DAILY Calcium Carbonate [Calcium] 600 mg PO DAILY Sertraline HCl [Zoloft 50mg tablet] 25 mg PO DAILY <Hayes Turner - 06/13/19 12:48> - Problem Reconciliation Problems Reviewed?: Yes <Hayes Turner - 06/13/19 12:48> Yes <Jose Eduardo Soria - 06/13/19 10:20>
== END 2019-06-13 13:45 | disposition home or self-care (01) | DRG 194 ==
LOC: ER 20:58 → 2ND 20:58 → OBSVTOIN 23:26 → 2ND 23:27
PROVIDERS: ADMIT Emergency Medicine; ATTEND Emergency Medicine
CPT/HCPCS: 36415; 36569; 71010; 71020; 71045; 71046; 74176; 80048; 80053; 81001; 82150; 83605; 83690; 83735; 84484; 85025; 87040; 87070; 87077; 87086; 87088; 87186; 87205; 87275; 87276; 93005; 94640; 96365; 96367; 96375; 99285; C1751; J0456; J2405

== ENCOUNTER → 2019-07-08 15:14 | Outpatient (CLI) | payer OTHER, SELFPAY ==
--- NOTE | 2019-07-08 15:21 | XR_ITS ---
PROCEDURE: XR CHEST 2V CLINICAL HISTORY: cough COMPARISON: CXR1 CHEST-PORTABLE from 10/22/2016 CXR1 CHEST-PORTABLE from 05/07/2017 CTAC CTA-CHEST from 05/07/2017 XR CHEST 2V from 06/10/2019 XR CHEST PORTABLE PICC PLAC from 06/12/2019 FINDINGS: The heart and and pulmonary vascularity are within normal limits. The lungs are clear without infiltrates, suspicious nodules, or pleural effusions. No acute bony abnormalities. The PICC line is been removed. There is a bone plate along the lower cervical spine. There is mild prominence of the mediastinum possibly related related to mild prominence of the ascending aorta. IMPRESSION: Nonspecific nonacute findings as described above. Mild prominence of the mediastinum which could be due to mild prominence of the ascending aorta Dictated by: Justin Gamboa MD 07/08/2019 16:25 Electronically signed by Justin Gamboa MD in [place] 07/08/2019 16:25
[2019-07-08 16:02] LABS: Basophils # 0.1 K/mm3 (0-0.2); Eosinophils # 0.2 K/mm3 (0.0-0.4); Eosinophils % 2.6 % (0.1-12.0); Hematocrit 41.3 % (37.0-47.0); Hemoglobin 13.5 g/dL (12.2-16.2); Lymphocytes # 2.2 K/mm3 (0.7-4.5); Lymphocytes % 35.8 % (10-50); Mean Corpuscular HGB Conc 32.7 g/dL (31.8-35.4); Mean Corpuscular Hemoglobin 28.2 pg (27.0-31.2); Mean Corpuscular Volume 86.2 fl (81-99); Mean Platelet Volume 7.7 fl (7.4-10.4); Monocytes # 0.2 K/mm3 (0.1-1.0); Neutrophils # 3.6 K/mm3 (1.8-7.8); Neutrophils % 57.6 % (37.0-80.0); Platelet Count 311 K/mm3 (142-424); Red Blood Count 4.78 M/mm3 (4.20-5.40); Red Cell Distribution Width 14.6 % (11.5-17.5); White Blood Count 6.2 K/mm3 (4.8-10.8)
[2019-07-08 18:00] LABS: Alanine Aminotransferase 14 U/L (12-78); Albumin Level 3.9 gm/dL (3.4-5.0); Albumin/Globulin Ratio 1.1 (1.1-1.8); Alkaline Phosphatase 135 U/L (46-116); Anion Gap 14.5 mEq/L (5-15); Aspartate Amino Transferase 15 U/L (15-37); Bilirubin,Total 0.2 mg/dL (0.2-1.0); Blood Urea Nitrogen 12 mg/dL (7-18); Calcium 9.4 mg/dL (8.5-10.1); Carbon Dioxide 26 mmol/L (21.0-32.0); Chloride 105 mmol/L (98-107); Chol/HDL Ratio 3.6 (1-3.5); Cholesterol 148 mg/dL (140-200); Creatinine,Serum 0.73 mg/dL (0.55-1.02); Estimated Glomerular Filt Rate 83 ml/min (>60); GFR (African American) 100 ML/MIN (>60); Globulin 3.6 gm/dl (1.3-3.2); Glucose 82 mg/dL (74-106); HDL Cholesterol 41 mg/dL (29-89); LDL Cholesterol 74 mg/dL (0-130); Potassium 4.5 mmoL/L (3.5-5.1); Sodium 141 mmol/L (136-145); T4 (Thyroxine) 12.8 ug/dl (4.7-13.3); Total Protein,Serum 7.5 gm/dL (6.4-8.2); Triglycerides 164 mg/dL (30-200); VLDL Cholesterol 33 mg/dL (0-40)
[2019-07-10 21:13] LABS: Vitamin D 25 Hydroxy 29.1 ng/mL (30.0-100.0)
== END ==
PROVIDERS: PCP Nurse Practitioner Family; Visit Provider Nurse Practitioner Family
DX: R09.89 Other specified symptoms and signs involving the circulatory and respiratory systems (principal); R53.83 Other fatigue; E78.5 Hyperlipidemia, unspecified; D64.9 Anemia, unspecified; E55.9 Vitamin D deficiency, unspecified
CPT/HCPCS: 36415; 71046; 80053; 80061; 82652; 84436; 84443; 85025

== ENCOUNTER 2020-03-11 18:10 | Emergency (ER) | payer MEDICAID, SELFPAY ==
--- NOTE | 2020-03-11 18:40 | XR_ITS ---
PROCEDURE: XR HAND RT 2V CLINICAL INDICATION: pain Animal bite COMPARISON: XR HAND LT 2V from 03/11/2020 FINDINGS: No fracture or dislocation. No lytic or blastic change. There is normal mineralization. The joint spaces are well-preserved. No significant degenerative/arthritic changes. No erosive changes evident. Other findings:There is mild soft tissue swelling of the thumb. No radiopaque foreign body or soft tissue gas. IMPRESSION: Soft tissue swelling otherwise negative Dictated by: Justin Gamboa MD 03/11/2020 20:30 Electronically signed by Justin Gamboa MD in [place] 03/11/2020 20:30
--- NOTE | 2020-03-11 18:40 | XR_ITS ---
PROCEDURE: XR HAND LT 2V CLINICAL INDICATION: pain Animal bite COMPARISON: XR HAND RT 2V from 03/11/2020 FINDINGS: No fracture or dislocation. No lytic or blastic change. There is normal mineralization. The joint spaces are well-preserved. No significant degenerative/arthritic changes. No erosive changes evident. Other findings:No radiopaque foreign body IMPRESSION: No acute findings. Dictated by: Justin Gamboa MD 03/11/2020 20:29 Electronically signed by Justin Gamboa MD in [place] 03/11/2020 20:29
[2020-03-11 18:47] VITALS: BP 159/100; PULSE 91; RESP 18; TEMP 36.6; O2SAT 98; BMI 43.2
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
[2020-03-11 19:21] VITALS: BP 159/100; PULSE 91; RESP 18; TEMP 36.6; O2SAT 98
== END 2020-03-11 19:30 | disposition home or self-care (01) ==
PROVIDERS: Emergency Provider Nurse Practitioner Family; PCP Emergency Medicine
DX: S61.052A Open bite of left thumb without damage to nail, initial encounter (principal); S61.051A Open bite of right thumb without damage to nail, initial encounter; W55.01XA Bitten by cat, initial encounter; Y92.414 Local residential or business street as the place of occurrence of the external cause; Z23 Encounter for immunization; F33.1 Major depressive disorder, recurrent, moderate; E03.9 Hypothyroidism, unspecified; I25.10 Atherosclerotic heart disease of native coronary artery without angina pectoris; E78.5 Hyperlipidemia, unspecified; I10 Essential (primary) hypertension; Z79.899 Other long term (current) drug therapy; Z88.2 Allergy status to sulfonamides; Z88.5 Allergy status to narcotic agent; Z90.49 Acquired absence of other specified parts of digestive tract; Z90.79 Acquired absence of other genital organ(s)
CPT/HCPCS: 73120; 90471; 90715; 96372; 99202

== ENCOUNTER → 2020-05-30 13:56 | Outpatient (CLI) | payer MEDICAID, SELFPAY | PROVIDERS: Visit Provider Emergency Medicine | DX: A49.9 Bacterial infection, unspecified (principal); N39.0 Urinary tract infection, site not specified | CPT/HCPCS: 87086; 87088; 87186 ==

== ENCOUNTER 2020-06-01 14:44 | Outpatient (CLI) | payer MEDICAID, SELFPAY ==
[2020-06-01 14:49] VITALS: BMI 43.4
[2020-06-01 15:21] LABS: Chloride 105 mmol/L (98-107); Potassium 4.2 mmoL/L (3.5-5.1); Sodium 141 mmol/L (136-145)
[2020-06-01 15:24] LABS: Anion Gap 15.2 mEq/L (5-15); Blood Urea Nitrogen 13 mg/dl (7-17); Carbon Dioxide 25 mmol/L (22.0-30.0); Creatinine Clearance Estimated 77 mL/min (50-200); Estimated Glomerular Filt Rate 87 ml/min (>60); GFR (African American) 105 ML/MIN (>60)
[2020-06-01 15:25] LABS: Glucose 101 mg/dl (74-100)
[2020-06-01 15:40] VITALS: BP 131/81; PULSE 70; RESP 18; TEMP 36.3; O2SAT 97
[2020-06-01 16:20] VITALS: BP 127/80; PULSE 69; RESP 18; O2SAT 97
== END 2020-06-01 16:34 | disposition home or self-care (01) ==
LOC: INF 14:45
PROVIDERS: PCP Emergency Medicine; Visit Provider Emergency Medicine
DX: N39.0 Urinary tract infection, site not specified (principal); Z16.12 Extended spectrum beta lactamase (ESBL) resistance
CPT/HCPCS: 80048; 96365; J1335

== ENCOUNTER 2020-06-02 12:38 | Outpatient (CLI) | payer MEDICAID, SELFPAY ==
--- NOTE | 2020-06-02 12:48 | PC.NURSE ---
pt here for tx today with infusion of invanz. pt consulted with enid connell rn for picc line placement at this time.
[2020-06-02 13:20] VITALS: BMI 43.4
--- NOTE | 2020-06-02 13:21 | XR_ITS ---
PROCEDURE: XR CHEST PORTABLE PICC PLAC CLINICAL HISTORY: PICC line placement COMPARISON: CT CTAC CTA-CHEST from 05/07/2017 CR XR CHEST 2V from 06/10/2019 CR XR CHEST PORTABLE PICC PLAC from 06/12/2019 CR XR CHEST 2V from 07/08/2019 FINDINGS: The cardiomediastinal silhouette and pulmonary vascularity are within normal limits. Coronary artery calcification and/or stent noted The lungs are clear without infiltrates, suspicious nodules, or pleural effusions. A PICC line has been inserted by the left subclavian approach. The tip is in satisfactory position in the region of the superior vena cava. IMPRESSION: Left upper extremity PICC line in good position. Dictated by: Justin Gamboa MD 06/02/2020 13:42 Justin Gamboa MD in [place] 06/02/2020 13:42
[2020-06-02 13:55] VITALS: BP 127/73; PULSE 73; RESP 18; TEMP 36.3; O2SAT 97
[2020-06-02 14:25] VITALS: BP 120/79; PULSE 78; RESP 18; O2SAT 97
[2020-06-02 14:40] VITALS: BP 118/71; PULSE 61; RESP 18; O2SAT 99
== END 2020-06-02 14:40 | disposition home or self-care (01) ==
LOC: INF 12:38
PROVIDERS: Visit Provider Emergency Medicine
DX: N39.0 Urinary tract infection, site not specified (principal); Z16.12 Extended spectrum beta lactamase (ESBL) resistance
CPT/HCPCS: 36569; 71045; 96365; C1751; J1335

== ENCOUNTER → 2020-06-13 17:41 | Outpatient (CLI) | payer MEDICAID, SELFPAY ==
[2020-06-13 17:56] LABS: Basophils # 0.1 K/mm3 (0-0.2); Eosinophils # 0.3 K/mm3 (0.0-0.4); Eosinophils % 4.3 % (0.1-12.0); Hemoglobin 13.6 g/dL (12.2-16.2); Lymphocytes # 2.5 K/mm3 (0.7-4.5); Lymphocytes % 32.7 % (10-50); Mean Corpuscular HGB Conc 32.3 g/dL (31.8-35.4); Mean Corpuscular Hemoglobin 27.5 pg (27.0-31.2); Mean Corpuscular Volume 85.2 fl (81-99); Mean Platelet Volume 9.5 fl (7.4-10.4); Monocytes # 0.2 K/mm3 (0.1-1.0); Monocytes % 2.8 % (1.7-9.3); Neutrophils # 4.6 K/mm3 (1.8-7.8); Neutrophils % 59.2 % (37.0-80.0); Platelet Count 355 K/mm3 (142-424); Red Blood Count 4.92 M/mm3 (4.20-5.40); Red Cell Distribution Width 14.2 % (11.5-17.5); White Blood Count 7.7 K/mm3 (4.8-10.8)
[2020-06-13 18:11] LABS: Alanine Aminotransferase 13 U/L (12-78); Albumin Level 4.3 g/dl (3.5-5.0); Albumin/Globulin Ratio 1.3 (1.1-1.8); Alkaline Phosphatase 170 U/L (38-126); Anion Gap 17.3 mEq/L (5-15); Aspartate Amino Transferase 23 U/L (14-36); Bilirubin,Total 0.3 mg/dl (0.2-1.3); Blood Urea Nitrogen 11 mg/dl (7-17); Calcium 9.6 mg/dl (8.4-10.2); Carbon Dioxide 23 mmol/L (22.0-30.0); Chloride 107 mmol/L (98-107); Estimated Glomerular Filt Rate 87 ml/min (>60); GFR (African American) 105 ML/MIN (>60); Globulin 3.4 g/dL (1.3-3.2); Glucose 95 mg/dl (74-100); Potassium 4.3 mmoL/L (3.5-5.1); Sodium 143 mmol/L (136-145); Total Protein,Serum 7.7 g/dl (6.3-8.2)
[2020-06-13 18:13] LABS: Erythrocyte Sedimentation Rate 26 mm/hr (0-30)
== END ==
PROVIDERS: Visit Provider Emergency Medicine
DX: N39.0 Urinary tract infection, site not specified (principal)
CPT/HCPCS: 80053; 85025; 85651; 87086

== ENCOUNTER → 2020-07-08 13:52 | Outpatient (CLI) | payer MEDICAID, SELFPAY | PROVIDERS: Visit Provider Nurse Practitioner Family | DX: N89.8 Other specified noninflammatory disorders of vagina (principal); N39.0 Urinary tract infection, site not specified | CPT/HCPCS: 87086; 87088; 87186; 87210 ==

== ENCOUNTER → 2020-08-30 13:09 | Outpatient (CLI) | payer MEDICAID, SELFPAY ==
[2020-08-30 14:16] LABS: Basophils # 0.1 K/mm3 (0-0.2); Basophils % 0.8 % (0.1-2.0); Eosinophils # 0.1 K/mm3 (0.0-0.4); Eosinophils % 2.1 % (0.1-12.0); Hematocrit 41.2 % (37.0-47.0); Hemoglobin 13.8 g/dL (12.2-16.2); Lymphocytes # 2.4 K/mm3 (0.7-4.5); Lymphocytes % 36.1 % (10-50); Mean Corpuscular HGB Conc 33.4 g/dL (31.8-35.4); Mean Corpuscular Hemoglobin 28.2 pg (27.0-31.2); Mean Corpuscular Volume 84.3 fl (81-99); Mean Platelet Volume 8.2 fl (7.4-10.4); Monocytes # 0.2 K/mm3 (0.1-1.0); Neutrophils # 3.9 K/mm3 (1.8-7.8); Neutrophils % 58.1 % (37.0-80.0); Platelet Count 295 K/mm3 (142-424); Red Blood Count 4.88 M/mm3 (4.20-5.40); Red Cell Distribution Width 14.7 % (11.5-17.5); White Blood Count 6.7 K/mm3 (4.8-10.8)
[2020-08-30 14:18] LABS: Chloride 108 mmol/L (98-107); Potassium 4.4 mmoL/L (3.5-5.1); Sodium 142 mmol/L (136-145)
[2020-08-30 14:20] LABS: Alanine Aminotransferase 15 U/L (12-78); Alkaline Phosphatase 160 U/L (38-126); Aspartate Amino Transferase 22 U/L (14-36); Bilirubin,Total 0.4 mg/dl (0.2-1.3); Blood Urea Nitrogen 11 mg/dl (7-17); Estimated Glomerular Filt Rate 87 ml/min (>60); GFR (African American) 105 ML/MIN (>60)
[2020-08-30 14:21] LABS: Albumin Level 4.4 g/dl (3.5-5.0); Albumin/Globulin Ratio 1.3 (1.1-1.8); Anion Gap 13.4 mEq/L (5-15); Calcium 10.1 mg/dl (8.4-10.2); Carbon Dioxide 25 mmol/L (22.0-30.0); Chol/HDL Ratio 3.4 (1-3.5); Cholesterol 158 mg/dl (140-200); Globulin 3.5 g/dL (1.3-3.2); Glucose 125 mg/dl (74-100); HDL Cholesterol 47 mg/dl (40-60); Total Protein,Serum 7.9 g/dl (6.3-8.2); Triglycerides 123 mg/dl (30-150); VLDL Cholesterol 25 mg/dL (0-40)
[2020-08-30 14:28] LABS: C-Reactive Protein 11.5 mg/L (0-4)
[2020-08-30 14:32] LABS: Direct LDL Cholesterol 84.55 mg/dL (100-129)
[2020-08-30 14:37] LABS: Free T4 (Free Thyroxine) 1.27 ng/dl (0.78-2.19)
[2020-08-30 14:38] LABS: 25-OH Vitamin D, Total 26.8 ng/mL (30-100)
[2020-08-30 14:52] LABS: Thyroid Stimulating Hormone 1.07 uIU/mL (0.465-4.68)
[2020-08-30 14:54] LABS: Erythrocyte Sedimentation Rate 23 mm/hr (0-30)
[2020-08-30 19:08] LABS: Hemoglobin A1C 5.6 % (4.0-6.0)
[2020-09-01 10:28] LABS: RA Latex Turbid. <10.0 IU/mL (0.0-13.9)
[2020-09-01 15:32] LABS: Anti-Centromere B Antibodies <0.2 AI (0.0-0.9); Anti-Jo-1 <0.2 AI (0.0-0.9); Anti-Smith Antibody <0.2 AI (0.0-0.9); Antichromatin Antibodies <0.2 AI (0.0-0.9); Antiscleroderma-70 Antibodies <0.2 AI (0.0-0.9); RNP Antibodies 0.2 AI (0.0-0.9); Sjogren's Anti-SS-A <0.2 AI (0.0-0.9); Sjogren's Anti-SS-B <0.2 AI (0.0-0.9)
[2020-09-02 07:56] LABS: Anti-Cyclic Citrullinated Pept 7 units (0-19); Anti-DNA (DS) Ab Qn 1 IU/mL (0-9)
[2020-09-02 12:11] LABS: PTT-LA 41.8 sec (0.0-51.9)
[2020-09-02 12:17] LABS: Lupus Reflex Interpretation Comment: (.)
== END ==
PROVIDERS: Visit Provider Emergency Medicine
DX: M19.90 Unspecified osteoarthritis, unspecified site (principal); E55.9 Vitamin D deficiency, unspecified; Z79.899 Other long term (current) drug therapy; M54.5 Low back pain
CPT/HCPCS: 36415; 80053; 80061; 82306; 83036; 84439; 84443; 85025; 85613; 85651; 86140; 86200; 86225; 86235; 86431

== ENCOUNTER → 2020-09-20 15:50 | Outpatient (CLI) | payer MEDICAID, SELFPAY ==
[2020-09-22 08:09] LABS: Covid-19 Nasal PCR Sendout P&C Negative
== END ==
PROVIDERS: PCP Emergency Medicine; Visit Provider Emergency Medicine
DX: Z20.822 Contact with and (suspected) exposure to COVID-19 (principal)
CPT/HCPCS: U0004

== ENCOUNTER → 2021-02-08 13:46 | Outpatient (CLI) | payer MEDICAID, SELFPAY | PROVIDERS: Visit Provider Emergency Medicine | DX: R82.90 Unspecified abnormal findings in urine (principal) | CPT/HCPCS: 87086; 87088; 87186 ==

== ENCOUNTER → 2021-03-01 15:42 | Outpatient (CLI) | payer MEDICAID, SELFPAY ==
--- NOTE | 2021-03-01 15:42 | CT_ITS ---
PROCEDURE: CT CHEST WO CON CLINICAL INDICATION: shortness of breath SOA Cough COMPARISON: CT CTAC CTA-CHEST from 05/07/2017 TECHNIQUE: Axial images obtained with sagittal and coronal reformats. All CT scans at the facility use one or more dose reduction, viz: automated exposure control, ma/kV adjustment per patient size (including targeted exams where dose is matched to indication, i.e. head), or iterative reconstruction technique. FINDINGS: HEART AND MEDIASTINAL STRUCTURES: Extensive coronary artery calcifications and/or stents noted. Normal heart size. LUNGS AND PLEURAL SPACES: There is a small area of ground-glass attenuation in the left upper lobe posteriorly. The remaining lungs are clear. BONY STRUCTURES: Degenerative changes thoracic spine UPPER ABDOMEN: Splenomegaly at 15 cm. Prior cholecystectomy ADDITIONAL FINDINGS: A 9 x 4 mm nodular opacity is present in the medial aspect of the left breast. IMPRESSION: 1. Patchy ground-glass infiltrate in the left upper lobe posteriorly suggesting a small area of pneumonia. 2. 9 x 4 mm nodule in the medial aspect of the left breast. Suggest mammogram and ultrasound for further evaluation. 3. Splenomegaly 4. Extensive coronary artery calcification and/or stents noted Dictated by: Justin Gamboa MD 03/02/2021 07:19 Justin Gamboa MD in [place] 03/02/2021 07:19
== END ==
PROVIDERS: PCP Emergency Medicine; Visit Provider Emergency Medicine
DX: R06.02 Shortness of breath (principal)
CPT/HCPCS: 71250

== ENCOUNTER → 2021-03-22 13:25 | Outpatient (CLI) | payer MEDICAID, SELFPAY ==
--- NOTE | 2021-03-22 13:25 | MM_ITS ---
PROCEDURE: MM DIG MAMM DX UNILAT LT CAD Digital Breast Tomosynthesis Included Left breast ultrasound CLINICAL INDICATION: seen on chest CT Follow-up breast nodule COMPARISON: [facility] from 10/25/[address] CHEST WO CON from 03/01/2021 US US BREAST LT COMPLETE from 03/22/2021 TECHNIQUE: Standard CC and MLO images and 3D Tomosynthesis was obtained. R2 CAD reviewed. Left breast ultrasound FINDINGS: Previous CT scan demonstrated a nodule in the medial aspect of the left breast. There is scattered fibroglandular elements. Multiple benign-appearing nodules are present as well as benign-appearing calcifications. In the medial aspect of the left breast there is a 10 by 7 mm oval density not readily apparent on the previous mammogram. The margins are obscured medially. Other benign-appearing nodules are present in the lateral aspect of the left breast which have increased in size measuring 5 mm each previously measuring approximately 3 mm. Left breast ultrasound: 3 mm hypoechoic nodule in the retroareolar region med and may represent a complex cyst. Questionable hypoechoic nodule at 8 o'clock at 4 mm. At 10 o'clock there is a 10 mm hypoechoic nodule with posterior acoustical enhancement consistent with a cyst corresponding to the CT and the mammographic abnormality. Small nodes are present in the axilla. IMPRESSION: CT abnormality in the medial aspect of the left breast corresponds to a benign-appearing cyst. This has developed since the previous mammogram. There are 2 nodules in the lateral aspect of the left breast at 5 mm each which were not demonstrated by ultrasound slightly increased in size from 10/25/2020 but having a benign appearance. Six-month ultrasound and mammogram follow-up suggested. BI-RAD Category: 3 Probably Benign Finding Short Term Follow-Up FOLLOW-UP: 6M 6 Month Follow-up (A letter has been sent to the patient regarding results of the study.) Dictated by: Justin Gamboa MD 03/29/2021 09:12 Justin Gamboa MD in [place] 03/29/2021 09:12
== END ==
PROVIDERS: PCP Emergency Medicine; Visit Provider Emergency Medicine
DX: N63.20 Unspecified lump in the left breast, unspecified quadrant (principal); R93.89 Abnormal findings on diagnostic imaging of other specified body structures
CPT/HCPCS: 76641; 77061; 77065; G0279

== ENCOUNTER → 2021-03-24 10:30 | Outpatient (CLI) | payer MEDICAID, SELFPAY ==
[2021-03-24 12:57] LABS: Anion Gap 15.5 mEq/L (5-15); Blood Urea Nitrogen 11 mg/dl (7-17); Calcium 9.2 mg/dl (8.4-10.2); Carbon Dioxide 25 mmol/L (22.0-30.0); Chloride 107 mmol/L (98-107); Estimated Glomerular Filt Rate 86 ml/min (>60); GFR (African American) 104 ML/MIN (>60); Glucose 95 mg/dl (74-100); Potassium 4.5 mmoL/L (3.5-5.1); Sodium 143 mmol/L (136-145)
== END ==
PROVIDERS: Visit Provider Internal Medicine Cardiovascular Disease
DX: I50.9 Heart failure, unspecified; I20.9 Angina pectoris, unspecified; I11.0 Hypertensive heart disease with heart failure; N28.9 Disorder of kidney and ureter, unspecified; Z82.49 Family history of ischemic heart disease and other diseases of the circulatory system; Z87.891 Personal history of nicotine dependence; Z95.5 Presence of coronary angioplasty implant and graft
CPT/HCPCS: 36415; 80048; 83880; U0003

== ENCOUNTER 2021-03-27 08:04 | Day surgery (SDC) | payer MEDICAID, SELFPAY ==
[2021-03-20 12:34] VITALS: BMI 41.5
[2021-03-27 08:42] VITALS: BP 113/61; PULSE 70; RESP 18; TEMP 36.3; O2SAT 97
--- NOTE | 2021-03-27 09:11 | HMH.ANESCL ---
[facility] Anesthesia Checklist - Structural Data Admitted From: Home Planned Operative Procedure/s: egd Consent for Planned Operative Procedure(s) Verified: Yes - Airway Assessment C-Spine Mobility Assessed: Yes TMJ Mobility Assessed: Yes Dentition: Edentulous - Neurological Assessment Level of Consciousness: Awake, Alert, Appropriate - Anesthesia Plan Anesthesia Risk discussed: Yes Anesthesia Plan: Verified ASA Class: III Anesthesia Type: MAC [facility] History I have reviewed the patient's past medical history: Yes Medical History: Reports:: Atherosclerotic Heart Disease, Coronary Artery Disease, Depression, Hyperlipidemia, Hypertension, MRSA, Myocardial Infarction, Urinary Tract Infection, Valvular Heart Disease Denies:: Cancer, Diabetes Mellitus Type 1, Diabetes Mellitus Type 2, Internal Pacemaker, Seizures *Have you ever received a pneumonia vaccine?: No *Have you received a flu vaccine this season?: Yes Other Medical History: Reports: Anemia, Arthritis, Cataracts, Fibromyalgia, Hypothyroidism, Sinus Problems Anesthesia experience/problems:: none Laterality Cases: Bilateral: Arthroscopy Knee Other Surgeries: Yes: Appendectomy, Cardiac Catheterization, Cholecystectomy, Coronary Stent, Hysterectomy-Total, Other. No: Pacemaker Amputation: No Fractures: No - *Social History Last grade of school completed: High school graduate Smoking Status: Former smoker Tobacco Type: cigarettes # Packs/Day (cigarettes): 1 #Yrs smoked (if former smoker): 30 Alcohol Intake: never Alcohol Intake Frequency:: holidays/special occasions only Substance Use Type: denies use *Occupational Status:: disabled Housing: house Household Members: none *Travel in the last 8 weeks: None - Psychiatric History Pschychiatric History:: Reports:: Depression Family Hx:: Coronary Artery Disease
--- NOTE | 2021-03-27 09:26 | HMH.PROC ---
[facility] Procedure Note Procedure Note:: Upper Endoscopy Procedure Report: Esophagogastroduodenoscopy with cold biopsies and TTS balloon dilation Endoscopost: Roland Barton II, MD Referring Physician: Alexandre Cameron MD Date of Procedure: March 27, 2021 Equipment: Olympus GIF 190 standard upper endoscope Sedation: MAC sedation Indications: Mrs. Munguia is a 56-year-old female with persistent coughing that occurs postprandially when she begins swallowing. She does have some dysphagia and globus sensation. She reports moderate belching. She has very minor heartburn and reflux. She has been on Protonix for years. The patient also has dyspepsia with epigastric abdominal discomfort, bloating, nausea and early satiety. She will get some occasional chest pain. She is being seen by cardiology and was told that her cardiac ejection fraction was less than 50. The patient recently had a CT scan of the chest. This did show splenomegaly. This was also identified on a CAT scan of the abdomen in 2019. The patient's platelet count is normal. She has been told previously that she had a fatty liver. She has had prior cholecystectomy. Her recent lab work from August 2020 revealed hemoglobin 13.8, hematocrit 41.2, AST 22, ALT 15, alkaline phosphatase 160, amylase 23 and lipase 55. The patient does report irregular bowel function with IBS alternating with both constipation and diarrhea. Procedure: Prior to the procedure, a history and physical exam was performed, and patient's medications and allergies were reviewed. The risks, benefits and alternatives of the sedation and procedure were discussed with the patient. All questions were answered and informed consent was obtained. The patient was brought to the procedure room. Patient identification and proposed procedure were verified by the physician and the nurse. The patient was placed in a left lateral decubitus position and the scope was passed under direct vision. Throughout the procedure, the patient's blood pressure, pulse, and oxygen saturations were monitored continuously. The upper GI endoscopy was accomplished without difficulty. The patient tolerated the procedure well. Findings: The scope was passed directly into the upper esophagus and advanced to the third portion of the duodenum. The post bulbar duodenum and duodenal bulb were normal with normal mucosa and conniventes. There was very mild lymphoid stasis. Cold biopsies were taken from the post bulbar duodenum and duodenal bulb to rule out celiac disease. The scope was withdrawn through a normal duodenal bulb and pylorus into the stomach. There was moderate bile reflux with linear reactive gastropathy of the antrum. The remainder of the body and fundus of the stomach were grossly normal. Upon retroflexion there was no hiatal hernia. 2 biopsies were taken in the antrum and along the lesser curvature for histology to rule out gastritis and/or H pylori. There was also a gastric polyp in the fundus that was approximately 7 to 8 mm and removed via cold biopsy. The scope was then withdrawn into the esophagus. There was no evidence of reflux esophagitis or Conrad's. There were tertiary contractions and evidence of moderate esophageal dysmotility. The entire esophagus was dilated to 60 Icelandic/20 mm with a TTS hydrostatic balloon. There was some resistance at the cricopharyngeus (cricopharyngeal spasm). The remainder of the esophageal mucosa was normal. Impression: 1. Cricopharyngeal spasm status post dilation to 20 mm 2. Nonerosive GERD with moderate esophageal dysmotility 3. Bile reflux with mild linear reactive gastropathy (of antrum) 4. Gastric fundic polyp Plan: I will follow-up the biopsies. The patient does have functional dyspepsia and functional GERD with esophageal dyskinesia and cricopharyngeal spasm. We will discuss additional treatment options that should help with her cough which should include dietary measures and promot
[2021-03-27 09:30] VITALS: BP 110/76; PULSE 70; RESP 12; TEMP 36.3; O2SAT 95
[2021-03-27 09:40] VITALS: BP 106/69; PULSE 66; RESP 16; O2SAT 96
[2021-03-27 09:50] VITALS: BP 110/68; PULSE 62; RESP 16; O2SAT 96
[2021-03-27 10:00] VITALS: BP 119/66; PULSE 64; RESP 16; TEMP 36.3; O2SAT 95
== END 2021-03-27 10:08 | disposition home or self-care (01) ==
LOC: OUTP 08:06
PROVIDERS: PCP Emergency Medicine; Visit Provider Internal Medicine Gastroenterology
PROC: 0DJ08ZZ Inspection of Upper Intestinal Tract, Via Natural or Artificial Opening Endoscopic (ICD-10-PCS; CPT 43235; principal; 2021-03-27 12:30)
DX: R13.10 Dysphagia, unspecified (principal); K22.4 Dyskinesia of esophagus; K31.7 Polyp of stomach and duodenum; J39.2 Other diseases of pharynx; K21.9 Gastro-esophageal reflux disease without esophagitis; K31.9 Disease of stomach and duodenum, unspecified; I25.10 Atherosclerotic heart disease of native coronary artery without angina pectoris; E78.5 Hyperlipidemia, unspecified; I10 Essential (primary) hypertension; F32.9 Major depressive disorder, single episode, unspecified; I25.2 Old myocardial infarction; Z86.14 Personal history of Methicillin resistant Staphylococcus aureus infection; M19.90 Unspecified osteoarthritis, unspecified site
CPT/HCPCS: 43239; 43249; C1726

== ENCOUNTER → 2021-04-13 07:06 | Outpatient (CLI) | payer MEDICAID, SELFPAY ==
--- NOTE | 2021-04-13 07:07 | CA_ITS ---
APPROVED REPORT EXAM: Comprehensive 2D, Doppler, and color-flow Echocardiogram Focuser: Rahel Calderon RT(R) Ht: 5 ft 4 in Wt: 239lbs BSA: 2.11 BP: 138/84 mmHg Indications: CP, ex smoker, edema, HTN, SOB, hyperlipidemia, family history of HD, CAD, CHF, 3 stents, dizziness, coughing 2D Dimensions LVOT 2.08 cm (M/F) 1.5-2.5 LVEF (Craig's) 71.40 % F: 54 - 74 LV Volume 93.30 mL F: 46 - 106 LV Volume Index 44.21 mL/m2 F: 29 - 61 LA Volume 27.20 mL LA Volume Index 12.89 mL/m2 (M/F) 16-34 M-Mode Dimensions RVDd 2.21 cm (0.9-2.6) LA Diam 3.80 cm (1.9-4.0) LVDd 5.02 cm (3.5-5.7) Ao Diam 2.76 cm (2.0-3.7) LVDs 3.77 cm (3.5-5.7) IVSd 0.53 cm (0.6-1.1) PWd 0.85 cm (0.6-1.1) EF (Teich) 49.00% FS 24.90% EDV (Teich) 119.30 mL ESV (Teich) 60.80 mL LV Diastology E Decel Time 280.00 (160-240 msec) E/A Ratio 1.1 MED E' 10.90 (< 7 cm/sec) E'/MED E' Ratio 9.05 (>14) LAT E' 14.20 (<10 cm/sec) E/LAT E' Ratio 6.94 (>14) Mitral Valve MV E Max Stephen. 99.00 (40-130 cm/s) MV A Velocity 87.00 (40-130 cm/s) E/A Ratio 1.13 MV Decel. Time 280.00 (160-240 ms) MV PHT 82.00 ms Tricuspid Valve TR P. Velocity 240.00 cm/s RAP Estimate 15.00 mmHg RVSP 38.10 mmHg Left Ventricle Left atrium is mildly enlarged, left ventricle is normal size, left ventricle wall thickness is upper limit of normal, there is preserved left ventricular systolic function, visually estimated ejection fraction 55% with no regional wall motion abnormality, diastolic parameters are within normal range. Right Ventricle Right atrium and right ventricle are normal size and contractility. Aortic Valve Aortic valve is minimally thickened and fibrosed, there is no aortic stenosis or aortic insufficiency. Mitral Valve Mitral valve is grossly normal, there is trace mitral regurgitation. Tricuspid Valve Tricuspid grossly normal, there is trace tricuspid regurgitation, tricuspid regurgitation jet velocity is inadequate for calculation of the right ventricular systolic pressure. Pulmonic Valve Pulmonic valve is poorly visualized. Great Vessels Aortic root is normal size. Pericardium No significant pericardial effusion noted. Conclusion 1. Normal left ventricular size, preserved left ventricular systolic function, visually estimated ejection fraction 55% with no regional wall motion abnormality, diastolic parameters are within normal range. 2. Trace mitral and tricuspid regurgitation. 3. No significant pericardial effusion noted. Electronically signed by : Chaka Etienne MD 04/13/2021 15:06:05
--- NOTE | 2021-04-13 07:07 | CA_ITS ---
APPROVED REPORT Service Correspondent: ANA Laterality: Bilateral Indications: typical angina/dyspnea Doppler Spectral Velocity Analysis ECA (R) 78.00/16.30 cm/s ECA (L) 107.10/17.10 cm/s dICA (R) 77.00/34.30 cm/s dICA (L) 84.00/8.60 cm/s Zay (R) 91.70/34.30 cm/s Zay (L) 99.40/36.00 cm/s pICA (R) 80.00/21.40 cm/s pICA (L) 55.70/16.30 cm/s dCCA (R) 80.00/21.00 cm/s dCCA (L) 85.70/20.60 cm/s mCCA (R) 71.00/15.00 cm/s mCCA (L) 85.70/25.70 cm/s pCCA (R) 75.00/15.00 cm/s pCCA (L) 74.50/26.60 cm/s Vert (R) 54.00/13.70 cm/s Vert (L) 68.50/29.10 cm/s ICA/CCA 1.29 ICA/CCA 1.22 Findings Spectral broadening is noted in Left ICA. Duplex evaluation demonstrates antegrade flow of the bilateral Vertebral Arteries. Duplex evaluation demonstrates no evidence of hemodynamically significant stenosis of the bilateral Internal Carotid Arteries. Duplex evaluation demonstrates stenosis of the right proximal internal carotid artery <20% with PSV <140 cm/sec, EDV <100 cm/sec, and IC/CC Ratio <4.0. Duplex evaluation demonstrates stenosis of the left proximal internal carotid artery in the range of 20-49% with PSV <140 cm/sec, EDV <100 cm/sec, and IC/CC Ratio <4.0. Conclusion Spectral broadening is noted in Left ICA. Duplex evaluation demonstrates antegrade flow of the bilateral Vertebral Arteries. Duplex evaluation demonstrates no evidence of hemodynamically significant stenosis of the bilateral Internal Carotid Arteries. Duplex evaluation demonstrates stenosis of the right proximal internal carotid artery <20% with PSV <140 cm/sec, EDV <100 cm/sec, and IC/CC Ratio <4.0. Duplex evaluation demonstrates stenosis of the left proximal internal carotid artery in the range of 20-49% with PSV <140 cm/sec, EDV <100 cm/sec, and IC/CC Ratio <4.0. Electronically signed by : Justin Gamboa MD 04/13/2021 15:06:55
--- NOTE | 2021-04-13 07:11 | NM_ITS ---
APPROVED REPORT Exam: Nuclear Stress Test Indication: Chest pain, SOB, Fatigue, CAD, HTN, High cholesterol, Family history Patient Location: Outpatient Stress Tech: Mari Farrell HI Tech:Moon Roger KEITHAquiles RT(R)(N) Ht: 5 ft 4 in Wt: 239 lbs Bra Size: 44d HR: 56 bpm BP: 115/69 mmHg BSA: 2.11 m2 BMI: 41.0 History: Chest pain, SOB, Fatigue, CAD, HTN, High cholesterol, Family history Procedure: Patient received a 0.4 mg of intravenous Lexiscan, resting heart rate 56 bpm, resting blood pressure 115/69 mmHg, with Lexiscan maximum heart rate achived was 72 bpm which is Less than 85 % of the maximum predicted heart rate and blood pressure was 129/80 mmHg. With Lexiscan, patient denied any complaint of chest pain. Electrocardiogram Resting electrocardiogram shows sinus rhythm, with Lexiscan there is less than 1.[address] segment depression noted from the baseline EKG. The EKG portion of the Lexiscan is nondiagnostic. Cardiac Stress and Resting SPECT Images: Cardiac Stress and Resting SPECT images were obtained using technetium 99m Myoview 31.4 mCi stress and 9.84 mCi at rest. Gated SPECT for analysis of segmental wall motion and calculation of the ejection fraction also done, prone images were also obtained. Cardiac stress and rest SPECT images show uniform myocardial activity without segmental perfusion abnormality, computer derived ejection fraction is 66% with no regional wall motion abnormality, right ventricle is normal size and contractility, however there is transient ischemic dilatation of the left ventricle seen, raising the concerns for presence of balanced ischemia. Conclusion: 1. The EKG portion of the Lexiscan is nondiagnostic. 2. No scintigraphic evidence of reversible ischemia seen, computer derived ejection fraction is 66% with no regional wall motion abnormality, right ventricle is normal size and contractility, however there is transient ischemic dilatation of the left ventricle seen, raising the concern for presence of balanced ischemia, other causes for transient ischemic dilatation include hypertensive heart disease, microvascular disease, elevated left ventricular end-diastolic pressure and diabetes mellitus. Clinical correlation is recommended. 3. Abnormal Lexiscan Myoview study. Electronically signed by : Chaka Etienne MD 04/13/2021 15:17:59
--- NOTE | 2021-04-13 07:11 | CA_ITS ---
APPROVED REPORT Exam: Pharmacologic Technologist: Ana Ontiveros, Ht: 5 ft 4 in Wt: 257 lbs BSA: 2.18 m2 HR: 54 bpm BP: 115/69 mmHg Rhythm: sinus taina, low voltage QRS Medical History Medical History: HTN, Hyperlipidemia Medications: Levothyroxine,,,,, Aspirin,,,,, Gabapentin,,,,, Premarin,,,,, Protonix,,,,, TopAMAX,,,,, CetIRIZINE,,,,, AtorvaASTATIN,,,,, MyBERTRIQ,,,,, Potassium,,,,, ClonAZapam,,,,, Hydroxyzine HCI,,,,, Cardiac Risk Factors: HTN, Hyperlipidemia, FHX of CAD Stress Test Details Test: LEXISCAN HR Resting HR: 56 bpm Max Heart Rate (APMHR): 163 bpm Max HR Achieved: 72 bpm Target HR (85% APMHR): 138 bpm % of APMHR: 44 Recovery HR: 59 bpm BP Resting BP: 115/69 mmHg Max BP: 129/80 mmHg Recovery BP: 120.0/66.0 mmHg ECG Resting ECG: sinus taina, low voltage QRS Medications Administered Albuterol ( mg at ) Clinical Exercise duration: 04:01 min Highest Stage Achieved: Exercise capacity: 1.0 METs Stress ECG Conclusion During lexiscan pt experinced SOA, mild stomach discomfort, and ARROYO. No arrhythmias or ectopy. No significant changes to ST-T. Unremarkable Lexiscan stress. Myoview images to follow. Electronically signed by : Chaka Etienne MD 04/13/2021 15:14:25
--- NOTE | 2021-04-13 13:24 | HMH.ITSHM ---
Current Home Medications as stated by this patient Tawanna Munguia or equal opportunity representative. []TOPROL LOSARTAN LIPITOR ASA REGLAN ZOLOFT KLONIPIN TRAZODONE SYNTHROID PREMARIN SINGULAIR
== END ==
PROVIDERS: PCP Emergency Medicine; Visit Provider Internal Medicine Cardiovascular Disease
DX: R06.00 Dyspnea, unspecified (principal); I20.8 Other forms of angina pectoris; I50.9 Heart failure, unspecified; R60.0 Localized edema; Z82.49 Family history of ischemic heart disease and other diseases of the circulatory system; Z87.891 Personal history of nicotine dependence; Z95.5 Presence of coronary angioplasty implant and graft; I11.0 Hypertensive heart disease with heart failure
CPT/HCPCS: 78452; 93017; 93306; 93880; A9502; J2785

== ENCOUNTER → 2021-04-25 12:53 | Outpatient (CLI) | payer MEDICAID, SELFPAY ==
[2021-04-25 13:08] LABS: Basophils # 0.1 K/mm3 (0-0.2); Basophils % 0.7 % (0.1-2.0); Eosinophils # 0.2 K/mm3 (0.0-0.4); Eosinophils % 2.2 % (0.1-12.0); Hematocrit 38.8 % (37.0-47.0); Hemoglobin 12.7 g/dL (12.2-16.2); Lymphocytes # 2.2 K/mm3 (0.7-4.5); Lymphocytes % 29.7 % (10-50); Mean Corpuscular HGB Conc 32.6 g/dL (31.8-35.4); Mean Corpuscular Hemoglobin 28.6 pg (27.0-31.2); Mean Corpuscular Volume 87.6 fl (81-99); Mean Platelet Volume 7.8 fl (7.4-10.4); Monocytes # 0.3 K/mm3 (0.1-1.0); Monocytes % 4.1 % (1.7-9.3); Neutrophils # 4.7 K/mm3 (1.8-7.8); Neutrophils % 63.3 % (37.0-80.0); Platelet Count 281 K/mm3 (142-424); Red Blood Count 4.43 M/mm3 (4.20-5.40); Red Cell Distribution Width 14.5 % (11.5-17.5); White Blood Count 7.5 K/mm3 (4.8-10.8)
[2021-04-25 13:54] LABS: Anion Gap 16.1 mEq/L (5-15); Blood Urea Nitrogen 15 mg/dl (7-17); Calcium 9.4 mg/dl (8.4-10.2); Carbon Dioxide 27 mmol/L (22.0-30.0); Chloride 101 mmol/L (98-107); Estimated Glomerular Filt Rate 86 ml/min (>60); GFR (African American) 104 ML/MIN (>60); Glucose 98 mg/dl (74-100); Potassium 4.1 mmoL/L (3.5-5.1); Sodium 140 mmol/L (136-145)
== END ==
PROVIDERS: Visit Provider Internal Medicine Cardiovascular Disease
DX: Z01.812 Encounter for preprocedural laboratory examination (principal); Z11.52 Encounter for screening for COVID-19; I20.8 Other forms of angina pectoris; I25.118 Atherosclerotic heart disease of native coronary artery with other forms of angina pectoris; I50.9 Heart failure, unspecified; I10 Essential (primary) hypertension; J44.9 Chronic obstructive pulmonary disease, unspecified; R94.39 Abnormal result of other cardiovascular function study; Z82.49 Family history of ischemic heart disease and other diseases of the circulatory system; Z87.891 Personal history of nicotine dependence; Z95.5 Presence of coronary angioplasty implant and graft
CPT/HCPCS: 36415; 80048; 85025; U0003

== ENCOUNTER 2021-04-26 08:09 | Day surgery (SDC) | payer MEDICAID, SELFPAY ==
[2021-04-26] VITALS (11 sets, daily range): BP systolic 93–156; BP diastolic 59–80; PULSE 58–74; RESP 18; TEMP 37; O2SAT 92–98; BMI 44.4
--- NOTE | 2021-04-26 07:26 | IR_ITS ---
APPROVED REPORT Patient Location: Outpatient Hat Forming Machine Operator: ALEXX Guerrier RT (R) PROCEDURES Left heart catheterization Left ventriculogram Selective coronary angiogram INDICATION Known coronary artery disease, Angina pectoris, Abnormal Myoview with transient ischemic dilatation Informed consent was obtained prior to the procedure. COMPLICATIONS None Estimated Blood Loss: Less than 10 mls TECHNIQUE One percent lidocaine used to anesthetize the right anterior aspect of the wrist. The right radial artery was accessed via the Seldinger technique. A 6 Greek sheath was placed in the right radial artery. 2.5 mg of verapamil, 800 mcg of nitroglycerin, 1mg Lidocaine and 5000 U Heparin were given through the arterial sheath. The trap catheter was also used to perform left heart catheterization, left ventriculogram and selective coronary angiogram. At the end of the procedure the sheath was removed good hemostasis was achieved using Traclet band, patient was transferred to the postop holding area in stable condition. ANGIOGRAPHIC RESULTS The left main artery Normal The left anterior descending artery Is proximally normal followed by mid vessel concentric 50% stenosis followed by a stent which is widely patent. Distal to the stent there is a small caliber 30% stenoses. First diagonal artery has a proximal eccentric 30 to 40% stenosis The circumflex artery Is a nondominant vessel and has a mid vessel 30% stenosis The right coronary artery Is a dominant vessel and has and has mid vessel 20 to 30% stenoses with distal 20 to 30% stenosis. Posterior descending artery has 20 and 30% mid vessel stenosis The TORRES ventriculogram reveals Hyperdynamic 70% The left ventricular end-diastolic pressure Elevated at 25 to 30 mmHg IMPRESSION Patent coronary arteries as described above with moderate disease in the mid LAD which is unlikely to be producing the degree of diastolic dysfunction which has been recorded Treat underlying diastolic dysfunction with fluid restriction loop diuretics Continue risk factor modification for coronary disease Following treatment of diastolic dysfunction should patient continue with recalcitrant angina pectoris I would then consider bringing her back and performing an FFR to the mid LAD. Typically a mid LAD lesion is unlikely to produce the degree of diastolic dysfunction which patient is experiencing and I doubt this is the etiology for the angina Electronically signed by : Willie Munson MD 04/26/2021 10:10:04
== END 2021-04-26 12:36 | disposition home or self-care (01) ==
LOC: CATHLAB 08:10
PROVIDERS: PCP Emergency Medicine; Visit Provider Internal Medicine
DX: I25.118 Atherosclerotic heart disease of native coronary artery with other forms of angina pectoris (principal); I50.9 Heart failure, unspecified; J44.9 Chronic obstructive pulmonary disease, unspecified; R94.39 Abnormal result of other cardiovascular function study; Z82.49 Family history of ischemic heart disease and other diseases of the circulatory system; Z87.891 Personal history of nicotine dependence; Z95.5 Presence of coronary angioplasty implant and graft; I11.0 Hypertensive heart disease with heart failure; Z79.890 Hormone replacement therapy; Z79.899 Other long term (current) drug therapy; Z79.82 Long term (current) use of aspirin; Z88.8 Allergy status to other drugs, medicaments and biological substances
CPT/HCPCS: 93458; 99152; C1725; C1769; J1644; Q9967

== ENCOUNTER → 2021-05-26 12:04 | Outpatient (CLI) | payer MEDICAID, SELFPAY | PROVIDERS: PCP Emergency Medicine; Visit Provider Internal Medicine Cardiovascular Disease | DX: G47.9 Sleep disorder, unspecified (principal); R40.0 Somnolence; G47.33 Obstructive sleep apnea (adult) (pediatric) | CPT/HCPCS: 95806 ==

== ENCOUNTER → 2021-08-08 10:21 | Outpatient (CLI) | payer MEDICAID, SELFPAY ==
[2021-08-08 11:00] LABS: Basophils % 0.7 % (0.1-2.0); Eosinophils # 0.1 K/mm3 (0.0-0.4); Eosinophils % 1.8 % (0.1-12.0); Hematocrit 39.8 % (37.0-47.0); Hemoglobin 13.5 g/dL (12.2-16.2); Lymphocytes # 1.8 K/mm3 (0.7-4.5); Mean Corpuscular HGB Conc 33.9 g/dL (31.8-35.4); Mean Corpuscular Volume 85.8 fl (81-99); Mean Platelet Volume 7.4 fl (7.4-10.4); Monocytes # 0.3 K/mm3 (0.1-1.0); Monocytes % 4.3 % (1.7-9.3); Neutrophils # 4.3 K/mm3 (1.8-7.8); Neutrophils % 65.3 % (37.0-80.0); Platelet Count 314 K/mm3 (142-424); Red Blood Count 4.64 M/mm3 (4.20-5.40); Red Cell Distribution Width 13.9 % (11.5-17.5); White Blood Count 6.5 K/mm3 (4.8-10.8)
[2021-08-08 11:22] LABS: Chloride 104 mmol/L (98-107); Sodium 141 mmol/L (136-145)
[2021-08-08 11:23] LABS: Potassium 4.3 mmoL/L (3.5-5.1)
[2021-08-08 11:25] LABS: Alanine Aminotransferase 40 U/L (12-78); Alkaline Phosphatase 162 U/L (38-126); Amylase 56 U/L (30-110); Anion Gap 17.3 mEq/L (5-15); Aspartate Amino Transferase 40 U/L (14-36); Bilirubin,Total 0.2 mg/dl (0.2-1.3); Blood Urea Nitrogen 16 mg/dl (7-17); Carbon Dioxide 24 mmol/L (22.0-30.0); Estimated Glomerular Filt Rate 86 ml/min (>60); GFR (African American) 104 ML/MIN (>60); Glucose 106 mg/dl (74-100); Lipase 67 U/L (23-300)
[2021-08-08 11:26] LABS: Albumin Level 4.3 g/dl (3.5-5.0); Albumin/Globulin Ratio 1.5 (1.1-1.8); Calcium 9.2 mg/dl (8.4-10.2); Globulin 2.9 g/dL (1.3-3.2); Total Protein,Serum 7.2 g/dl (6.3-8.2)
== END ==
PROVIDERS: Visit Provider Emergency Medicine
DX: K30 Functional dyspepsia (principal)
CPT/HCPCS: 36415; 80053; 82150; 83690; 85025

== ENCOUNTER → 2021-10-24 14:16 | Outpatient (CLI) | payer MEDICAID, SELFPAY ==
--- NOTE | 2021-10-24 14:19 | XR_ITS ---
FINAL REPORT CLINICAL HISTORY: dyspnea COMPARISON: 06/02/2020 FINDINGS: Two views of the chest were obtained. The heart size and pulmonary vascularity are within normal limits. The mediastinum is normal. No acute pulmonary abnormality is identified. There is no pneumothorax. The bony thorax is intact. IMPRESSION: No active cardiopulmonary disease. Reviewed, Interpreted and Dictated by Marty Cunha III, MD Transcribed by Aziza Peña Authenticated by Marty Cunha III, MD on 10/24/2021 03:05:14 PM [facility]
== END ==
PROVIDERS: PCP Emergency Medicine; Visit Provider Physician Assistant
DX: R06.00 Dyspnea, unspecified (principal)
CPT/HCPCS: 71046

== ENCOUNTER 2021-10-27 11:40 | Emergency (ER) | payer MEDICAID, SELFPAY ==
[2021-10-27] VITALS (13 sets, daily range): BP systolic 119–144; BP diastolic 73–83; PULSE 61–69; RESP 12–18; TEMP 36.8–36.9; O2SAT 95–100; BMI 47.0
--- NOTE | 2021-10-27 11:38 | ECG_ITS ---
APPROVED REPORT Exam: Resting ECG HR:68 bpm ECG Measurements Heart Rate 68 AXES GA 175 P 43 QRSd 94 QRS 21 QT 396 T 13 QTc 414 Conclusion SINUS RHYTHM LOW QRS VOLTAGE IN PRECORDIAL LEADS [QRS DEFLECTION < 1.0 mV IN CHEST LEADS] BORDERLINE ECG UNCONFIRMED REPORT Electronically signed by : Don Guan MD 10/28/2021 09:24:46
--- NOTE | 2021-10-27 11:55 | XR_ITS ---
FINAL REPORT CLINICAL HISTORY: cough. sob, chest pain. hx of smoking COMPARISON: OCTOBER 24, 2021 FINDINGS: A single view of the chest was obtained. The heart size and pulmonary vascularity are within normal limits. The mediastinum is within normal limits. No acute pulmonary abnormality is identified. There are postoperative changes to the lower cervical spine. IMPRESSION: No active cardiopulmonary disease. Reviewed, Interpreted and Dictated by Marty Cunha III, MD Transcribed by Levy Montes Authenticated by Marty Cunha III, MD on 10/27/2021 01:12:50 PM [facility]
--- NOTE | 2021-10-27 11:58 | HMH.EDSOB ---
ED Disposition Clinical Impression: Acute exacerbation of chronic obstructive airways disease, Nonspecific chest pain Disposition: Home, Self-Care Condition on Discharge: Good Instructions: DI for Chronic Obstructive Pulmonary Disease Prescriptions: Doxycycline Monohydrate [Doxycycline Walton 100mg Tab] 100 mg PO Q12 #20 tab Transmission Status: Pending to [facility] methylPREDNISolone [Medrol 4mg tab] 4 mg PO DIRECTED #21 tab Transmission Status: Pending to [email or web address] Referrals: Provider,Referral, [Referring] - - Critical Care Critical Care Time: No Attestation: On 10/27/21, the high probability of a clinically significant, sudden or life threatening deterioration of the following system(s) required my full and direct attention, intervention and personal management. The time I documented below is in addition to time spent performing reported procedures but includes the following listed in this critical care notation. Medical Decision Making - Medical Records Medical records reviewed: Yes: I reviewed the patient's medical records. - Anthony Inquiry Pt receiving controlled substance: No Vital Signs: 10/27/21 11:40 10/27/21 11:57 10/27/21 12:00 Temperature 98.4 F Temperature Source Oral Pulse Rate 69 67 Pulse Rate [Right Radial] 68 Respiratory Rate 16 17 16 Blood Pressure 132/82 144/81 H Blood Pressure [Right Arm] 140/82 Blood Pressure Mean 103 96 Blood Pressure Mean [Right Arm] 101 Blood Pressure Source [Right Arm] Automatic Cuff Blood Pressure Position [Right Arm] Sitting 02 Sat by Pulse Oximetry 95 95 95 Oxygen Delivery Method Room Air 10/27/21 12:30 10/27/21 12:31 10/27/21 13:00 Temperature Temperature Source Pulse Rate 66 67 66 Pulse Rate [Right Radial] Respiratory Rate 13 16 Blood Pressure 119/73 125/83 Blood Pressure [Right Arm] Blood Pressure Mean 86 97 Blood Pressure Mean [Right Arm] Blood Pressure Source [Right Arm] Blood Pressure Position [Right Arm] 02 Sat by Pulse Oximetry 96 100 96 Oxygen Delivery Method Room Air 10/27/21 13:30 10/27/21 14:00 10/27/21 14:30 Temperature Temperature Source Pulse Rate 67 61 64 Pulse Rate [Right Radial] Respiratory Rate 13 16 12 Blood Pressure 129/74 143/82 H 119/81 Blood Pressure [Right Arm] Blood Pressure Mean 87 102 101 Blood Pressure Mean [Right Arm] Blood Pressure Source [Right Arm] Blood Pressure Position [Right Arm] 02 Sat by Pulse Oximetry 95 95 96 Oxygen Delivery Method 10/27/21 15:00 10/27/21 15:30 Temperature Temperature Source Pulse Rate 61 62 Pulse Rate [Right Radial] Respiratory Rate 18 14 Blood Pressure 119/80 128/77 Blood Pressure [Right Arm] Blood Pressure Mean 93 101 Blood Pressure Mean [Right Arm] Blood Pressure Source [Right Arm] Blood Pressure Position [Right Arm] 02 Sat by Pulse Oximetry 95 96 Oxygen Delivery Method - Lab Data Lab Results 10/27/21 11:56: SARS-CoV-2 (PCR) Not detected, Influenza A Untype (PCR) Not detected, Influenza Type B (PCR) Not detected 10/27/21 12:00: WBC 6.0, RBC 4.29, Hgb 12.2, Hct 38.0, MCV 88.5, MCH 28.5, MCHC 32.3, RDW 14.5, Plt Count 304, MPV 8.0, Neut % (Auto) 65.1, Lymph % (Auto) 26.6, Walton % (Auto) 4.0, Eos % (Auto) 2.0, Baso % (Auto) 2.2 H, Neut # (Auto) 3.9, Lymph # (Auto) 1.6, Walton # (Auto) 0.2, Eos # (Auto) 0.1, Baso # (Auto) 0.1 10/27/21 12:00: PT 10.9, INR 0.96, APTT 28.0 10/27/21 12:00: Sodium 136, Potassium 4.1, Chloride 102, Carbon Dioxide 27, Anion Gap 11.1, BUN 10, Creatinine 0.70, Estimated Creat Clear 77, Estimated GFR 86, Est GFR ( Amer) 104, Glucose 126 H, Calcium 8.6, Total Bilirubin 0.5, AST 31, ALT 22, Alkaline Phosphatase 133 H, Troponin I < 0.01, NT-Pro-B Natriuret Pep 115, Total Protein 6.8, Albumin 3.9, Globulin 2.9, Albumin/Globulin Ratio 1.3 10/27/21 14:56: Troponin I < 0.01 Result diagrams: 10/27/21 12:00 10/27/21 12:00 Orde
--- NOTE | 2021-10-27 12:12 | PC.NURSE ---
Radiology at bedside
[2021-10-27 12:23] LABS: Coronavirus 19, PCR Not Detected (NotDetected); Influenza A, PCR Not Detected (NotDetected); Influenza B, PCR Not Detected (NotDetected)
[2021-10-27 12:24] LABS: Basophils # 0.1 K/mm3 (0-0.2); Basophils % 2.2 % (0.1-2.0); Eosinophils # 0.1 K/mm3 (0.0-0.4); Hemoglobin 12.2 g/dL (12.2-16.2); Lymphocytes # 1.6 K/mm3 (0.7-4.5); Lymphocytes % 26.6 % (10-50); Mean Corpuscular HGB Conc 32.3 g/dL (31.8-35.4); Mean Corpuscular Hemoglobin 28.5 pg (27.0-31.2); Mean Corpuscular Volume 88.5 fl (81-99); Monocytes # 0.2 K/mm3 (0.1-1.0); Neutrophils # 3.9 K/mm3 (1.8-7.8); Neutrophils % 65.1 % (37.0-80.0); Platelet Count 304 K/mm3 (142-424); Red Blood Count 4.29 M/mm3 (4.20-5.40); Red Cell Distribution Width 14.5 % (11.5-17.5)
[2021-10-27 12:26] LABS: Chloride 102 mmol/L (98-107); Potassium 4.1 mmoL/L (3.5-5.1); Sodium 136 mmol/L (136-145)
[2021-10-27 12:29] LABS: Alanine Aminotransferase 22 U/L (12-78); Albumin Level 3.9 g/dl (3.5-5.0); Albumin/Globulin Ratio 1.3 (1.1-1.8); Alkaline Phosphatase 133 U/L (38-126); Anion Gap 11.1 mEq/L (5-15); Aspartate Amino Transferase 31 U/L (14-36); Bilirubin,Total 0.5 mg/dl (0.2-1.3); Blood Urea Nitrogen 10 mg/dl (7-17); Carbon Dioxide 27 mmol/L (22.0-30.0); Creatinine Clearance Estimated 77 mL/min (50-200); Estimated Glomerular Filt Rate 86 ml/min (>60); GFR (African American) 104 ML/MIN (>60); Globulin 2.9 g/dL (1.3-3.2); Total Protein,Serum 6.8 g/dl (6.3-8.2)
[2021-10-27 12:30] LABS: Calcium 8.6 mg/dl (8.4-10.2); Glucose 126 mg/dl (74-100)
--- NOTE | 2021-10-27 12:32 | PC.NURSE ---
Respiratory at bedside for duo-neb
[2021-10-27 12:36] LABS: INR 0.96 (0.9-1.1); Prothrombin Time 10.9 seconds (10.1-12.5)
[2021-10-27 12:39] LABS: NT Pro Brain Natriuretic Pep. 115 pg/mL (0-125)
[2021-10-27 13:05] LABS: Troponin I < 0.01 ng/ml (0.00-0.034)
--- NOTE | 2021-10-27 13:28 | PC.NURSE ---
ED MD at bedside for update on POC
[2021-10-27 15:51] LABS: Troponin I < 0.01 ng/ml (0.00-0.034)
== END 2021-10-27 16:30 | disposition home or self-care (01) ==
PROVIDERS: Emergency Provider Emergency Medicine; PCP Emergency Medicine
DX: J44.1 Chronic obstructive pulmonary disease with (acute) exacerbation (principal); R07.89 Other chest pain; D64.9 Anemia, unspecified; I11.0 Hypertensive heart disease with heart failure; I50.9 Heart failure, unspecified; I48.91 Unspecified atrial fibrillation; I25.10 Atherosclerotic heart disease of native coronary artery without angina pectoris; I25.2 Old myocardial infarction; E78.5 Hyperlipidemia, unspecified; E03.9 Hypothyroidism, unspecified; M79.7 Fibromyalgia; G40.909 Epilepsy, unspecified, not intractable, without status epilepticus; F32.A Depression, unspecified; F17.210 Nicotine dependence, cigarettes, uncomplicated; Z79.82 Long term (current) use of aspirin; Z79.890 Hormone replacement therapy; Z79.899 Other long term (current) drug therapy; Z88.2 Allergy status to sulfonamides; Z88.5 Allergy status to narcotic agent; Z88.6 Allergy status to analgesic agent; Z88.8 Allergy status to other drugs, medicaments and biological substances; Z95.0 Presence of cardiac pacemaker; Z86.14 Personal history of Methicillin resistant Staphylococcus aureus infection; Z87.440 Personal history of urinary (tract) infections; Z95.5 Presence of coronary angioplasty implant and graft
CPT/HCPCS: 71045; 80053; 83880; 84484; 85025; 85610; 85730; 93005; 99284; C9803; U0003; U0005

== ENCOUNTER → 2021-11-07 09:13 | Outpatient (CLI) | payer MEDICAID, SELFPAY ==
[2021-11-07 10:00] LABS: Basophils # 0.1 K/mm3 (0-0.2); Basophils % 0.7 % (0.1-2.0); Eosinophils % 0.2 % (0.1-12.0); Hematocrit 38.9 % (37.0-47.0); Hemoglobin 12.7 g/dL (12.2-16.2); Lymphocytes # 2.2 K/mm3 (0.7-4.5); Lymphocytes % 20.8 % (10-50); Mean Corpuscular HGB Conc 32.8 g/dL (31.8-35.4); Mean Corpuscular Hemoglobin 29.2 pg (27.0-31.2); Mean Corpuscular Volume 89.1 fl (81-99); Mean Platelet Volume 8.1 fl (7.4-10.4); Monocytes # 0.4 K/mm3 (0.1-1.0); Monocytes % 3.6 % (1.7-9.3); Neutrophils # 7.8 K/mm3 (1.8-7.8); Neutrophils % 74.7 % (37.0-80.0); Platelet Count 319 K/mm3 (142-424); Red Blood Count 4.37 M/mm3 (4.20-5.40); Red Cell Distribution Width 14.4 % (11.5-17.5); White Blood Count 10.4 K/mm3 (4.8-10.8)
[2021-11-07 10:53] LABS: Chloride 105 mmol/L (98-107)
[2021-11-07 10:54] LABS: Potassium 4.1 mmoL/L (3.5-5.1); Sodium 141 mmol/L (136-145)
[2021-11-07 10:56] LABS: Alanine Aminotransferase 21 U/L (12-78); Aspartate Amino Transferase 19 U/L (14-36); Blood Urea Nitrogen 20 mg/dl (7-17); Estimated Glomerular Filt Rate 86 ml/min (>60); GFR (African American) 104 ML/MIN (>60)
[2021-11-07 10:57] LABS: Albumin Level 4.5 g/dl (3.5-5.0); Albumin/Globulin Ratio 1.6 (1.1-1.8); Alkaline Phosphatase 124 U/L (38-126); Anion Gap 13.1 mEq/L (5-15); Bilirubin,Total 0.4 mg/dl (0.2-1.3); Calcium 8.5 mg/dl (8.4-10.2); Carbon Dioxide 27 mmol/L (22.0-30.0); Globulin 2.8 g/dL (1.3-3.2); Glucose 112 mg/dl (74-100); Total Protein,Serum 7.3 g/dl (6.3-8.2)
[2021-11-07 11:14] LABS: 25-OH Vitamin D, Total 36.9 ng/mL (30-100)
[2021-11-07 11:48] LABS: Vitamin B12 328 pg/mL (239-931)
[2021-11-08 15:13] LABS: Actin (Smooth Muscle) Antibody 7 Units (0-19); Mitochondrial (M2) Antibody <20.0 Units (0.0-20.0)
[2021-11-08 23:16] LABS: ALT (SGPT) P5P 13 IU/L (0-40); AST (SGOT) P5P 12 IU/L (0-40); Alpha 2-Macroglobulins, Qn 183 mg/dL (110-276); Apolipoprotein A-1 131 mg/dL (116-209); Bilirubin, Total 0.2 mg/dL (0.0-1.2); Cholesterol, Total 148 mg/dL (100-199); Fibrosis Score 0.05 (0.00-0.21); GGT 15 IU/L (0-60); Glucose 116 mg/dL (65-99); Haptoglobin 313 mg/dL (33-346); Steatosis Score 0.56 (0.00-0.30); Triglycerides 153 mg/dL (0-149)
[2021-11-09 22:13] LABS: Pancreatic Elastase, Fecal 441 (>200)
== END ==
PROVIDERS: Visit Provider Internal Medicine Gastroenterology
DX: K76.0 Fatty (change of) liver, not elsewhere classified (principal); R14.0 Abdominal distension (gaseous); R11.0 Nausea; R10.12 Left upper quadrant pain; K30 Functional dyspepsia; R16.1 Splenomegaly, not elsewhere classified; E66.9 Obesity, unspecified; Z68.42 Body mass index [BMI] 45.0-49.9, adult
CPT/HCPCS: 36415; 80053; 82306; 82607; 82656; 85025; 86255; 86256

== ENCOUNTER → 2021-12-22 15:46 | Outpatient (CLI) | payer MEDICAID, SELFPAY ==
[2021-12-22 14:02] LABS: Free T4 (Free Thyroxine) 1.19 ng/dl (0.78-2.19)
[2021-12-22 14:16] LABS: Thyroid Stimulating Hormone 1.93 uIU/mL (0.465-4.68)
== END ==
PROVIDERS: Visit Provider Emergency Medicine
DX: E03.9 Hypothyroidism, unspecified (principal); E07.9 Disorder of thyroid, unspecified; M79.7 Fibromyalgia
CPT/HCPCS: 84439; 84443

== ENCOUNTER 2022-03-03 15:25 | Emergency (ER) | payer MEDICAID, SELFPAY ==
[2022-03-03 15:27] VITALS: BP 128/87; PULSE 66; RESP 16; TEMP 36.7; O2SAT 98; BMI 39.4
[2022-03-03 15:32] VITALS: BP 128/87; PULSE 69; O2SAT 98
--- NOTE | 2022-03-03 15:33 | ECG_ITS ---
APPROVED REPORT Exam: Resting ECG HR:67 bpm ECG Measurements Heart Rate 67 AXES CO 179 P 39 QRSd 84 QRS -21 QT 378 T 47 QTc 393 Conclusion SINUS RHYTHM LOW QRS VOLTAGE IN PRECORDIAL LEADS [QRS DEFLECTION < 1.0 mV IN CHEST LEADS] POSSIBLE ANTERIOR MYOCARDIAL INFARCTION , OF INDETERMINATE AGE [30 ms Q WAVE IN V3/V4, OR R < 0.2 mV IN V4] ABNORMAL ECG UNCONFIRMED REPORT Electronically signed by : Don Guan MD 03/05/2022 14:05:54
--- NOTE | 2022-03-03 15:35 | HMH.EDGENADL ---
ED Disposition Clinical Impression: Nonspecific chest pain, Flu-like symptoms Dyspnea Qualifiers: Dyspnea type: shortness of breath Qualified Code(s): R06.02 - Shortness of breath Disposition: Home, Self-Care Condition on Discharge: Good Instructions: DI for Shortness of Breath, DI for Viral Syndrome Referrals: Alexandre Cameron MD [Primary Care Provider] - Time of Disposition: 16:44 - Critical Care Critical Care Time: No Attestation: On 03/03/22, the high probability of a clinically significant, sudden or life threatening deterioration of the following system(s) required my full and direct attention, intervention and personal management. The time I documented below is in addition to time spent performing reported procedures but includes the following listed in this critical care notation. Medical Decision Making - Medical Records Medical records reviewed: Yes: I reviewed the patient's medical records. - Anthony Inquiry Pt receiving controlled substance: No Vital Signs: 03/03/22 15:27 03/03/22 15:32 Temperature 98.0 F Temperature Source Oral Pulse Rate 69 Pulse Rate [Right Radial] 66 Respiratory Rate 16 Blood Pressure 128/87 Blood Pressure [Right Arm] 128/87 Blood Pressure Mean 108 Blood Pressure Mean [Right Arm] 100 Blood Pressure Source [Right Arm] Automatic Cuff Blood Pressure Position [Right Arm] Sitting 02 Sat by Pulse Oximetry 98 98 Oxygen Delivery Method Room Air - Lab Data Lab results reviewed: Yes: I reviewed the patient's lab results. Lab Results 03/03/22 15:48: WBC 8.1, RBC 4.84, Hgb 13.7, Hct 43.7, MCV 90.3, MCH 28.2, MCHC 31.2 L, RDW 14.9, Plt Count 327, MPV 7.7, Neut % (Auto) 67.6, Lymph % (Auto) 20.3, [place] % (Auto) 8.5, Eos % (Auto) 2.4, Baso % (Auto) 1.1, Neut # (Auto) 5.5, Lymph # (Auto) 1.7, [place] # (Auto) 0.7, Eos # (Auto) 0.2, Baso # (Auto) 0.1 03/03/22 15:48: Sodium 136, Potassium 4.0, Chloride 103, Carbon Dioxide 26, Anion Gap 11.0, BUN 16, Creatinine 0.90, Estimated Creat Clear 114, Estimated GFR 65, Est GFR ( Amer) 78, Glucose 105 H, Calcium 9.7, Magnesium 1.5 L, Total Bilirubin 0.4, AST 21, ALT 17, Alkaline Phosphatase 116, Troponin I < 0.01, NT-Pro-B Natriuret Pep 59.9, Total Protein 7.5, Albumin 4.3, Globulin 3.2, Albumin/Globulin Ratio 1.3 Result diagrams: 03/03/22 15:48 03/03/22 15:48 Orders (Tests/Meds): ED MEDICATIONS Generic Name Dose Route Start Last Admin Trade Name Freq PRN Reason Stop Dose Admin Sodium Chloride 10 ml 03/03/22 15:45 Sodium Chloride 0.9% 10ml Flush Syringe IV 04/02/22 15:44 NEEDED PRN Maintain IV Site Discontinued Medications Generic Name Dose Route Start Last Admin Trade Name Freq PRN Reason Stop Dose Admin Aspirin 324 mg 03/03/22 15:53 03/03/22 16:02 Aspirin 81mg Chewable Tablet PO 03/03/22 15:54 324 mg ONCE ONE Administration ORDERS Category Date Time Status Rapid PCR Covid and Flu A/B Stat Lab 03/03/22 15:50 Received Troponin I Q3H Lab 03/03/22 18:45 Ordered Troponin I Q3H Lab 03/03/22 21:45 Ordered - ECG Data Tracing #1 Normal sinus rhythm at 67 Left axis deviation TN 179 QRS [address]/T wave changes - SMITH Score for Non-Stemi Age of Patient: 50-59 years old Heart Rate: 50-69 bpm Systolic Blood Pressure: 120-139 mmhg Other Risk Factors: None General Adult HPI - General Stated complaint: cough,SOA,tired, weak Time Seen by Provider: 03/03/22 15:43 Mode of Arrival: Ambulatory Source of Information: Patient Limitations: No Limitations - History of Present Illness HPI narrative: 56-year-old female, history of of coronary artery disease, last stress test in March 2021 which showed no evidence of ischemia, COPD, CHF. She presents today with complaints of shortness of breath, generalized fatigue, states she feels like sleeping all the time, and chest pain across the upper chest that radiates to both arms. Chest pain is noted at res
--- NOTE | 2022-03-03 15:38 | PC.NURSE ---
ANGEL HUERTA at
--- NOTE | 2022-03-03 15:41 | XR_ITS ---
PROCEDURE INFORMATION: Exam: XR Chest Exam date and time: 03/03/2022 3:44 PM Age: 56 years old Clinical indication: Shortness of breath; Additional info: SOB TECHNIQUE: Imaging protocol: Radiologic exam of the chest. Views: 1 view. Portable AP exam 3:48 p.m. COMPARISON: CR XR CHEST PORTABLE 10/27/2021 12:07 PM FINDINGS: Lungs: No acute pulmonary findings. No pulmonary consolidation. Mild hypoventilation/low lung volumes with infrahilar bronchovascular crowding. Pleural spaces: Unremarkable. No significant pleural effusion. No pneumothorax. Heart/Mediastinum: The cardiac silhouette is normal. Bones/joints: Fusion hardware in the lower cervical spine. Cervical facet arthropathy. There are spinal degenerative changes, with multilevel disc narrrowing and spondylosis. Soft tissues: No acute findings in the soft tissues. IMPRESSION: No acute findings or significant change compared with 10/27/2021.
[2022-03-03 16:10] LABS: Chloride 103 mmol/L (98-107); Sodium 136 mmol/L (136-145)
[2022-03-03 16:12] LABS: Basophils # 0.1 K/mm3 (0-0.2); Basophils % 1.1 % (0.1-2.0); Blood Urea Nitrogen 16 mg/dl (7-17); Creatinine Clearance Estimated 114 mL/min (50-200); Eosinophils # 0.2 K/mm3 (0.0-0.4); Eosinophils % 2.4 % (0.1-12.0); Estimated Glomerular Filt Rate 65 ml/min (>60); GFR (African American) 78 ML/MIN (>60); Hematocrit 43.7 % (37.0-47.0); Hemoglobin 13.7 g/dL (12.2-16.2); Lymphocytes # 1.7 K/mm3 (0.7-4.5); Lymphocytes % 20.3 % (10-50); Mean Corpuscular HGB Conc 31.2 g/dL (31.8-35.4); Mean Corpuscular Hemoglobin 28.2 pg (27.0-31.2); Mean Corpuscular Volume 90.3 fl (81-99); Mean Platelet Volume 7.7 fl (7.4-10.4); Monocytes # 0.7 K/mm3 (0.1-1.0); Monocytes % 8.5 % (1.7-9.3); Neutrophils # 5.5 K/mm3 (1.8-7.8); Neutrophils % 67.6 % (37.0-80.0); Platelet Count 327 K/mm3 (142-424); Red Blood Count 4.84 M/mm3 (4.20-5.40); Red Cell Distribution Width 14.9 % (11.5-17.5); White Blood Count 8.1 K/mm3 (4.8-10.8)
[2022-03-03 16:13] LABS: Alanine Aminotransferase 17 U/L (12-78); Albumin Level 4.3 g/dl (3.5-5.0); Albumin/Globulin Ratio 1.3 (1.1-1.8); Alkaline Phosphatase 116 U/L (38-126); Aspartate Amino Transferase 21 U/L (14-36); Bilirubin,Total 0.4 mg/dl (0.2-1.3); Calcium 9.7 mg/dl (8.4-10.2); Carbon Dioxide 26 mmol/L (22.0-30.0); Globulin 3.2 g/dL (1.3-3.2); Glucose 105 mg/dl (74-100); Total Protein,Serum 7.5 g/dl (6.3-8.2)
[2022-03-03 16:14] LABS: Magnesium 1.5 mg/dl (1.6-2.3)
[2022-03-03 16:22] LABS: NT Pro Brain Natriuretic Pep. 59.9 pg/mL (0-125)
[2022-03-03 16:26] LABS: Troponin I < 0.01 ng/ml (0.00-0.034)
[2022-03-03 16:35] LABS: Coronavirus 19, PCR Not Detected (NotDetected); Influenza A, PCR Not Detected (NotDetected); Influenza B, PCR Not Detected (NotDetected)
[2022-03-03 16:50] VITALS: BP 110/83; PULSE 59; RESP 18; TEMP 36.7; O2SAT 98
== END 2022-03-03 16:50 | disposition home or self-care (01) ==
PROVIDERS: Emergency Provider Emergency Medicine; PCP Emergency Medicine
DX: R07.9 Chest pain, unspecified (principal); R06.02 Shortness of breath; B34.9 Viral infection, unspecified; R05.9 Cough, unspecified; R53.83 Other fatigue; R53.1 Weakness; J44.9 Chronic obstructive pulmonary disease, unspecified; Z87.891 Personal history of nicotine dependence; M79.601 Pain in right arm; M79.602 Pain in left arm; I25.10 Atherosclerotic heart disease of native coronary artery without angina pectoris; F32.A Depression, unspecified; E78.5 Hyperlipidemia, unspecified; I10 Essential (primary) hypertension; D64.9 Anemia, unspecified; M19.90 Unspecified osteoarthritis, unspecified site; M79.7 Fibromyalgia; E03.9 Hypothyroidism, unspecified
CPT/HCPCS: 71045; 80053; 83735; 83880; 84484; 85025; 93005; 99284; C9803; U0003; U0005

== ENCOUNTER 2022-03-08 08:47 | Outpatient (RCR) | payer MEDICAID, SELFPAY ==
--- NOTE | 2022-03-08 10:00 | HMH.PTOPEV ---
PT Outpatient Evaluation Rehab PT Outpatient Evaluation Start: 03/08/22 09:43 Freq: Status: Active Protocol: Document 03/08/22 09:43 MARILUZ (Rec: 03/08/22 10:00 MARILUZ [id number]) Electronically Signed By Nilesh Lai, PT 03/08/22 09:43 Outpatient Therapy Subjective History Subjective History Patient is a 57 year old female presenting to outpatient PT with reports of chronic LBP with intermittent BLE radicular symptoms starting approximately 1 year ago. No recent imaging to report. LS pain R>L. Patient has previously been set with lumbar spine stimulator that seems to be malfunctioning at this point in time. Comorbidities include hx of CAD, COPD, HTN, HL CS fusion, cardiac stent x 3, B TKA, kelsie and appy. Chief Complaint Pain,Stiff,Paresthesia Symptom Type Ache,Sharp,Numbness,Tingling Symptoms Relieved By Heat,Ice,Prescription Meds Symptoms Aggravated By Standing,Bending/Stooping, Physical Activity,Walking, Lifting Prior Functional Limitations None Current Functional Limitations Lifting,Housework,Sleeping, Standing,Walking,Bending/ Stooping Symptom Description Constant but Variable Level of pain today (0-10) 7 Pain scale - at its best (0-10) 5 Pain scale - at its worst (0-10) 9 Lumbopelvic Eval Posture Thoracic Spine Posture Standing Position Increased Kyphosis Lumbar Spine Posture Standing Position Increased Lordosis Palapation tenderness bilateral lumbar spinal tenderness Yes: L 3/4/5 3/4 buttock tenderness Yes Lumbar/Sacral Palpation Findings Tenderness Lumbar/Sacral Palpation Overall Comment B SIJ R>L 3/4 Accessory Movement L3 bilateral L4 bilateral L5 bilateral Range of Motion Lumbar Spine Active Flexion Range of 38 Motion (degrees) Lumbar Spine Active Extension Range of 18 Motion (degrees) Left Lumbar Spine Lateral Flexion Active 15 Range of Motion (degrees) Right Lumbar Spine Lateral Flexion 14 Active Range of Motion (degrees) Lumbar Spine ROM Limitations Soft Tissue Tightness,Bony Restriction Manual Muscle Test Bilateral Knee Extension Strength Grade 4 Good Kne
== END 2022-03-08 08:49 | disposition home or self-care (01) ==
LOC: PT 08:47
PROVIDERS: PCP Emergency Medicine; Visit Provider Emergency Medicine
DX: M54.50 Low back pain, unspecified (principal)
CPT/HCPCS: 97163

== ENCOUNTER 2022-04-05 09:21 | Emergency (ER) | payer MEDICAID, SELFPAY ==
[2022-04-05 09:32] VITALS: BP 95/68; PULSE 117; RESP 24; TEMP 37.6; O2SAT 96; BMI 41.5
[2022-04-05 09:35] LABS: Influenza A, PCR Not Detected (NotDetected); Influenza B, PCR Not Detected (NotDetected)
--- NOTE | 2022-04-05 09:48 | HMH.EDGENADL ---
ED Disposition Clinical Impression: COVID-19 virus infection Disposition: Home, Self-Care Condition on Discharge: Good Instructions: DI for COVID-19 (Suspected or Confirmed ) Additional Instructions: Paxlovid as prescribed. Do not take Ranexa while taking Paxlovid. ADDITIONAL INSTRUCTIONS FOR COVID-19: Rest, drink plenty of fluids. Tylenol or Ibuprofen for fever and/or aches and pains. Monitor your symptoms. IF YOU HAVE AN EMERGENCY WARNING SIGN (INCLUDING TROUBLE BREATHING), SEEK EMERGENCY MEDICAL CARE IMMEDIATELY. COVID-19 Isolation: People with COVID-19 should isolate for 5 days. Then if they are asymptomatic (no symptoms) or their symptoms are resolving (without fever for 24 hours), follow that by 5 days of wearing a mask when around others to minimize the risk of infecting people you encounter. If you test positive for COVID-19 and never develop symptoms, day 0 is the day of your positive viral test (based on the date you were tested) and day 1 is the first full day after your positive test. If you develop symptoms after testing positive, your 5-day isolation period must start over. Day 0 is your first day of symptoms. Day 1 is the first full day after your symptoms developed. What to do: Stay in a separate room from other household members, if possible. Use a separate bathroom, if possible. Avoid contact with other members of the household and pets. Don?t share personal household items, like cups, towels, and utensils. Wear a mask when around other people if able. Prescriptions: Nirmatrelvir/Ritonavir [Paxlovid 2X150 mg-100 mg (Eua)] 1 each PO BID #1 packet Transmission Status: Pending to [id number] Referrals: Alexandre Cameron MD [Primary Care Provider] - - Critical Care Critical Care Time: No Attestation: On 04/05/22, the high probability of a clinically significant, sudden or life threatening deterioration of the following system(s) required my full and direct attention, intervention and personal management. The time I documented below is in addition to time spent performing reported procedures but includes the following listed in this critical care notation. Medical Decision Making - Anthony Inquiry Pt receiving controlled substance: No Vital Signs: 04/05/22 09:32 04/05/22 10:24 04/05/22 10:30 Temperature 99.7 F H Temperature Source Oral Pulse Rate 112 H 112 H Pulse Rate [Left Radial] 117 H Respiratory Rate 24 Blood Pressure 116/76 111/78 Blood Pressure [Right Arm] 95/68 L Blood Pressure Mean 89 91 Blood Pressure Mean [Right Arm] 77 02 Sat by Pulse Oximetry 96 94 L 94 L Oxygen Delivery Method Room Air Room Air Room Air - Lab Data Lab Results 04/05/22 09:30: SARS-CoV-2 (PCR) Detected A, Influenza A Untype (PCR) Not detected, Influenza Type B (PCR) Not detected 04/05/22 10:15: WBC 7.2, RBC 4.87, Hgb 14.4, Hct 43.6, MCV 89.4, MCH 29.5, MCHC 33.0, RDW 15.1, Plt Count 227, MPV 8.7, Neut % (Auto) 87.6 H, Lymph % (Auto) 7.4 L, [place] % (Auto) 3.4, Eos % (Auto) 1.2, Baso % (Auto) 0.4, Neut # (Auto) 6.3, Lymph # (Auto) 0.5 L, [place] # (Auto) 0.2, Eos # (Auto) 0.1, Baso # (Auto) 0.0, Total Counted 100, Neutrophils % (Manual) 88 H, Lymphocytes % (Manual) 11, Monocytes % (Manual) 1 L, Platelet Estimate Normal, RBC Morphology Normal 04/05/22 11:35: Carbon Dioxide 23, BUN 15, Creatinine 0.70, Estimated Creat Clear 79, Estimated GFR 86, Est GFR ( Amer) 104, Glucose 136 H, Calcium 9.3, Total Bilirubin 0.3, AST 31, ALT 20, Alkaline Phosphatase 145 H, Total Protein 7.4, Albumin 4.4, Globulin 3.0, Albumin/Globulin Ratio 1.5 Result diagrams: 04/05/22 10:15 04/05/22 11:35 Orders (Tests/Meds): ED MEDICATIONS Generic Name Dose Route Start Last Admin Trade Name Freq PRN Reason Stop Dose Admin Sodium Chloride 10 ml 04/05/22 09:36 Sodium Chloride 0.9% 10ml Flush Syringe IV 05/05/22 09:35 NEEDED PRN Maintain IV Site Discontinued Medicatio
--- NOTE | 2022-04-05 09:53 | PC.NURSE ---
ANGEL HUERTA at for patient eval
[2022-04-05 10:00] LABS: Coronavirus 19, PCR Detected (NotDetected)
--- NOTE | 2022-04-05 10:00 | PC.NURSE ---
IV attempt x2 unsuccessful.
--- NOTE | 2022-04-05 10:01 | XR_ITS ---
FINAL REPORT TECHNIQUE: Single view chest CLINICAL HISTORY: covid +/ cough COMPARISON: 03/03/2022 FINDINGS: A single view of the chest was obtained. The heart and mediastinum are within normal limits. There is mild left base atelectasis or scarring. There is no pneumothorax. Osseous structures are unremarkable. IMPRESSION: Mild left base atelectasis or scarring. Reviewed, Interpreted and Dictated by Marty Cunha III, MD Transcribed by Clau Graham Authenticated and [facility]
--- NOTE | 2022-04-05 10:21 | PC.NURSE ---
portable xr at the bedside
[2022-04-05 10:24] VITALS: BP 116/76; PULSE 112; O2SAT 94
[2022-04-05 10:30] VITALS: BP 111/78; PULSE 112; O2SAT 94
[2022-04-05 10:38] LABS: Basophils % 0.4 % (0.1-2.0); Eosinophils # 0.1 K/mm3 (0.0-0.4); Eosinophils % 1.2 % (0.1-12.0); Hematocrit 43.6 % (37.0-47.0); Hemoglobin 14.4 g/dL (12.2-16.2); Lymphocytes # 0.5 K/mm3 (0.7-4.5); Lymphocytes % 7.4 % (10-50); Mean Corpuscular Hemoglobin 29.5 pg (27.0-31.2); Mean Corpuscular Volume 89.4 fl (81-99); Mean Platelet Volume 8.7 fl (7.4-10.4); Monocytes # 0.2 K/mm3 (0.1-1.0); Monocytes % 3.4 % (1.7-9.3); Neutrophils # 6.3 K/mm3 (1.8-7.8); Neutrophils % 87.6 % (37.0-80.0); Platelet Count 227 K/mm3 (142-424); Red Blood Count 4.87 M/mm3 (4.20-5.40); Red Cell Distribution Width 15.1 % (11.5-17.5); White Blood Count 7.2 K/mm3 (4.8-10.8)
[2022-04-05 10:41] LABS: MANUAL DIFFERENTIAL MANUAL DIFFERENTIAL (MANUAL DIFF)
[2022-04-05 11:17] LABS: Lymphocytes % 11 % (10-50); Monocytes % 1 % (2-9); Neutrophils % 88 % (42-76); Platelet Estimate Normal; RBC Morphology Normal; Total Cells Counted 100
--- NOTE | 2022-04-05 11:30 | PC.NURSE ---
blood collection was hemolyzed. lab to collect blood
--- NOTE | 2022-04-05 11:35 | PC.NURSE ---
LAB HERE TO RECOLLECT LABS
[2022-04-05 12:04] LABS: Alanine Aminotransferase 20 U/L (12-78); Alkaline Phosphatase 145 U/L (38-126); Aspartate Amino Transferase 31 U/L (14-36); Bilirubin,Total 0.3 mg/dl (0.2-1.3); Blood Urea Nitrogen 15 mg/dl (7-17); Creatinine Clearance Estimated 79 mL/min (50-200); Estimated Glomerular Filt Rate 86 ml/min (>60); GFR (African American) 104 ML/MIN (>60)
[2022-04-05 12:05] LABS: Albumin Level 4.4 g/dl (3.5-5.0); Albumin/Globulin Ratio 1.5 (1.1-1.8); Calcium 9.3 mg/dl (8.4-10.2); Carbon Dioxide 23 mmol/L (22.0-30.0); Glucose 136 mg/dl (74-100); Total Protein,Serum 7.4 g/dl (6.3-8.2)
--- NOTE | 2022-04-05 12:15 | PC.NURSE ---
PT AMBULATED BACK FROM [facility]
[2022-04-05 12:20] LABS: Anion Gap 13.1 mEq/L (5-15); Chloride 106 mmol/L (98-107); Potassium 4.1 mmoL/L (3.5-5.1); Sodium 138 mmol/L (136-145)
[2022-04-05 12:32] VITALS: BP 101/59; PULSE 102; RESP 22; TEMP 37.3; O2SAT 93
== END 2022-04-05 12:36 | disposition home or self-care (01) ==
PROVIDERS: Emergency Provider Emergency Medicine; PCP Emergency Medicine
DX: U07.1 COVID-19 (principal); Z79.82 Long term (current) use of aspirin; Z79.899 Other long term (current) drug therapy; Z88.6 Allergy status to analgesic agent; I10 Essential (primary) hypertension; E78.5 Hyperlipidemia, unspecified; I25.10 Atherosclerotic heart disease of native coronary artery without angina pectoris; I25.2 Old myocardial infarction; F32.A Depression, unspecified; D64.9 Anemia, unspecified; M19.90 Unspecified osteoarthritis, unspecified site; E03.9 Hypothyroidism, unspecified
CPT/HCPCS: 36415; 71045; 80053; 85007; 85025; 96365; 96375; 99284; C9803; J2405; U0003; U0005

== ENCOUNTER 2022-04-14 12:28 | Emergency (ER) | payer MEDICAID, SELFPAY ==
[2022-04-14 12:29] VITALS: BP 128/98; PULSE 72; RESP 18; TEMP 36.5; O2SAT 98; BMI 42.9
--- NOTE | 2022-04-14 12:43 | XR_ITS ---
PROCEDURE INFORMATION: Exam: XR Chest Exam date and time: 04/14/2022 1:08 PM Age: 57 years old Clinical indication: Cough TECHNIQUE: Imaging protocol: Radiologic exam of the chest. Views: 2 views. COMPARISON: CR XR CHEST PORTABLE 04/05/2022 10:27 AM FINDINGS: Lungs: Unremarkable. No consolidation. Pleural spaces: Unremarkable. No pleural effusion. No pneumothorax. Heart/Mediastinum: Unremarkable. No cardiomegaly. Bones/joints: Unremarkable. IMPRESSION: No acute findings.
[2022-04-14 12:56] LABS: Basophils # 0.1 K/mm3 (0-0.2); Basophils % 1.1 % (0.1-2.0); Eosinophils # 0.2 K/mm3 (0.0-0.4); Eosinophils % 2.3 % (0.1-12.0); Lymphocytes # 2.3 K/mm3 (0.7-4.5); Lymphocytes % 22.7 % (10-50); Mean Corpuscular HGB Conc 31.1 g/dL (31.8-35.4); Mean Corpuscular Hemoglobin 28.1 pg (27.0-31.2); Mean Corpuscular Volume 90.1 fl (81-99); Mean Platelet Volume 8.3 fl (7.4-10.4); Monocytes # 0.3 K/mm3 (0.1-1.0); Monocytes % 3.3 % (1.7-9.3); Neutrophils # 7.1 K/mm3 (1.8-7.8); Neutrophils % 70.6 % (37.0-80.0); Platelet Count 355 K/mm3 (142-424); Red Blood Count 4.99 M/mm3 (4.20-5.40); Red Cell Distribution Width 14.9 % (11.5-17.5)
--- NOTE | 2022-04-14 12:56 | PC.NURSE ---
ANGEL HUERTA at for patient eval
--- NOTE | 2022-04-14 12:58 | HMH.EDGENADL ---
ED Disposition Clinical Impression: COVID-19 virus infection Disposition: Home, Self-Care Condition on Discharge: Good Instructions: DI for COVID-19 (Suspected or Confirmed ) Additional Instructions: Tessalon as needed for cough. Zofran as needed for nausea. Follow-up with primary care provider, call Saturday for appointment. Prescriptions: Benzonatate [Benzonatate 100mg cap] 100 mg PO TIDP PRN #15 cap PRN Reason: Cough Transmission Status: Pending to [id number] Ondansetron [Zofran 4mg ODT] 4 mg PO TIDP PRN #10 tab PRN Reason: Nausea And Vomiting Transmission Status: Pending to [id number] Referrals: Alexandre Cameron MD [Primary Care Provider] - - Critical Care Critical Care Time: No Attestation: On 04/14/22, the high probability of a clinically significant, sudden or life threatening deterioration of the following system(s) required my full and direct attention, intervention and personal management. The time I documented below is in addition to time spent performing reported procedures but includes the following listed in this critical care notation. Medical Decision Making - Anthony Inquiry Pt receiving controlled substance: No Vital Signs: 04/14/22 12:29 04/14/22 13:01 Temperature 97.7 F Temperature Source Oral Pulse Rate 67 Pulse Rate [Left Radial] 72 Respiratory Rate 18 16 Blood Pressure 112/70 Blood Pressure [Right Arm] 128/98 H Blood Pressure Mean 84 Blood Pressure Mean [Right Arm] 108 Blood Pressure Source [Right Arm] Automatic Cuff Blood Pressure Position [Right Arm] Sitting 02 Sat by Pulse Oximetry 98 97 Oxygen Delivery Method Room Air Room Air - Lab Data Lab Results 04/14/22 12:50: WBC 10.0, RBC 4.99, Hgb 14.0, Hct 45.0, MCV 90.1, MCH 28.1, MCHC 31.1 L, RDW 14.9, Plt Count 355, MPV 8.3, Neut % (Auto) 70.6, Lymph % (Auto) 22.7, [place] % (Auto) 3.3, Eos % (Auto) 2.3, Baso % (Auto) 1.1, Neut # (Auto) 7.1, Lymph # (Auto) 2.3, [place] # (Auto) 0.3, Eos # (Auto) 0.2, Baso # (Auto) 0.1 04/14/22 12:50: Sodium 137, Potassium 4.2, Chloride 104, Carbon Dioxide 25, BUN 15, Creatinine 0.80, Estimated Creat Clear 66, Estimated GFR 74, Est GFR ( Amer) 89, Glucose 93, Calcium 8.6, Total Bilirubin 0.4, AST 29, ALT 22, Alkaline Phosphatase 124, NT-Pro-B Natriuret Pep 27.6, Total Protein 7.9, Albumin 4.5, Globulin 3.4 H, Albumin/Globulin Ratio 1.3 Result diagrams: 04/14/22 12:50 04/14/22 12:50 Orders (Tests/Meds): ORDERS Category Date Time Status Chest XR 2 view (NOT portable) [XR chest 2V] Stat Exams 04/14/22 12:43 Taken Brain Natriuretic Peptide Stat Lab 04/14/22 12:50 Results Comprehensive Metabolic Panel Stat Lab 04/14/22 12:50 Results - Radiology Data #1 Image(s): Chest (Preliminary interpretation by me: No acute disease) Image Reviewed: Yes I reviewed the patient's radiology image General Adult HPI - General Chief complaint: Upper Respiratory Infection Stated complaint: Covid positive 04/04/22 cough, nausea Time Seen by Provider: 04/14/22 12:54 Mode of Arrival: Ambulatory Limitations: No Limitations Description of Symptoms (Recalled from ER Triage Doc. by RN): c/o cough, sore throat, nauseated, diarrhea and no appetite with a cough that is worse at night. Pt states that she is 10 day post her positive covid test. - History of Present Illness HPI narrative: Patient was diagnosed with COVID 10 days ago. States that she is still sick. Still has sore throat, cough, poor appetite, fatigue, nausea, a little diarrhea. She states that it feels like it is in her chest. She has had a bad cough ever since onset of the illness. She called her primary care provider, Dr. Cameron, the day after being seen here in the emergency room on 04/05/2022 and was sent in a prescription for Phenergan DM, which she says is not helping. No documented fevers. She was seen by me in this emergency department on 04/05/2022, tested positive for COVID, she
[2022-04-14 13:01] VITALS: BP 112/70; PULSE 67; RESP 16; O2SAT 97
[2022-04-14 13:01] LABS: Chloride 104 mmol/L (98-107); Sodium 137 mmol/L (136-145)
[2022-04-14 13:02] LABS: Potassium 4.2 mmoL/L (3.5-5.1)
[2022-04-14 13:04] LABS: Alanine Aminotransferase 22 U/L (12-78); Albumin Level 4.5 g/dl (3.5-5.0); Albumin/Globulin Ratio 1.3 (1.1-1.8); Alkaline Phosphatase 124 U/L (38-126); Aspartate Amino Transferase 29 U/L (14-36); Bilirubin,Total 0.4 mg/dl (0.2-1.3); Globulin 3.4 g/dL (1.3-3.2); Total Protein,Serum 7.9 g/dl (6.3-8.2)
[2022-04-14 13:05] LABS: Calcium 8.6 mg/dl (8.4-10.2); Glucose 93 mg/dl (74-100)
[2022-04-14 13:13] LABS: NT Pro Brain Natriuretic Pep. 27.6 pg/mL (0-125)
--- NOTE | 2022-04-14 13:16 | PC.NURSE ---
PT TO XR AT THIS TIME
[2022-04-14 13:17] LABS: Blood Urea Nitrogen 15 mg/dl (7-17); Creatinine Clearance Estimated 66 mL/min (50-200); Estimated Glomerular Filt Rate 74 ml/min (>60); GFR (African American) 89 ML/MIN (>60)
--- NOTE | 2022-04-14 13:20 | PC.NURSE ---
PT RETURNED FROM CT
--- NOTE | 2022-04-14 13:24 | PC.NURSE ---
ED MD AT BEDSIDE TO REEVALUATE PT
[2022-04-14 13:30] VITALS: BP 95/73; PULSE 64; O2SAT 96
[2022-04-14 13:50] VITALS: BP 95/73; PULSE 64; RESP 18; TEMP 36.5; O2SAT 96
[2022-04-14 14:12] LABS: Anion Gap 12.2 mEq/L (5-15); Carbon Dioxide 25 mmol/L (22.0-30.0)
== END 2022-04-14 13:51 | disposition home or self-care (01) ==
PROVIDERS: Emergency Provider Emergency Medicine; PCP Emergency Medicine
DX: U07.1 COVID-19 (principal)
CPT/HCPCS: 71046; 80053; 83880; 85025; 99283

== ENCOUNTER → 2022-04-24 15:06 | Outpatient (CLI) | payer MEDICAID, SELFPAY ==
[2022-04-24 18:34] LABS: Amphetamine/Metha Screen,Urine Negative ng/ml (<1000)
[2022-04-24 18:35] LABS: Barbiturates Screen,Urine Negative ng/ml (<200)
[2022-04-24 18:36] LABS: Benzodiazepines Screen,Urine Negative ng/ml (<200); Cannabinoid Screen,Urine Negative ng/ml (<50)
[2022-04-24 18:37] LABS: Cocaine Screen,Urine Negative ng/ml (<300)
[2022-04-24 18:38] LABS: Methadone Screen,Urine Negative ng/ml (<300); Opiate Screen,Urine Negative ng/ml (<300)
[2022-04-24 18:39] LABS: Phencyclidine Screen,Urine Negative ng/ml (<25)
== END ==
PROVIDERS: PCP Emergency Medicine; Visit Provider Emergency Medicine
DX: Z79.899 Other long term (current) drug therapy (principal)
CPT/HCPCS: 80305

== ENCOUNTER 2022-06-01 15:44 | Emergency (ER) | payer MEDICAID, SELFPAY ==
[2022-06-01 15:46] VITALS: BP 122/79; PULSE 83; RESP 18; TEMP 36.7; O2SAT 98; BMI 42.5
--- NOTE | 2022-06-01 16:13 | XR_ITS ---
PROCEDURE INFORMATION: Exam: XR Left Forearm Exam date and time: 06/01/2022 4:17 PM Age: 57 years old Clinical indication: Left; Patient HX: Fall, C/O lt wrist pain TECHNIQUE: Imaging protocol: Radiologic exam of the Left forearm. Views: 2 views. COMPARISON: CR XR WRIST LT MIN 3V 06/01/2022 4:14 PM FINDINGS: Bones/joints: Mildly impacted, comminuted and dorsally angulated distal radius fracture. No dislocation. No additional fracture. Soft tissues: Soft tissue swelling at the level of the wrist and at the dorsum of the proximal forearm. IMPRESSION: 1. Distal radius fracture. 2. Soft tissue swelling.
--- NOTE | 2022-06-01 16:13 | XR_ITS ---
PROCEDURE INFORMATION: Exam: XR Left Wrist Exam date and time: 06/01/2022 4:14 PM Age: 57 years old Clinical indication: Injury or trauma; Blunt trauma (contusions or hematomas); Left; Injury date: 06/01/22; Patient HX: Fall, C/O pain at wrist TECHNIQUE: Imaging protocol: Radiologic exam of the Left wrist. Views: 3 or more views. COMPARISON: CR XR HAND LT 2V 03/11/2020 7:06 PM FINDINGS: Bones/joints: Mildly impacted, mildly comminuted and dorsally angulated fracture through the distal radial metaphysis. No dislocation. Soft tissues: Soft tissue swelling at the level of the wrist. IMPRESSION: Distal radius fracture.
--- NOTE | 2022-06-01 16:15 | HMH.EDGENADL ---
Discharge Plan Disposition Patient Disposition: Home, Self-Care Condition: Good Prescriptions Prescriptions: New oxycodone-acetaminophen [Percocet] 7.5-325 mg tablet 1 tab PO Q8H PRN (Reason: pain) Qty: 6 0RF Rx Instructions: Please take only for severe pain that is not responsive to Tylenol and ibuprofen. No Action metoclopramide HCl [Reglan] 10 mg tablet 10 mg PO QACHS furosemide [Lasix] 40 mg tablet 40 mg PO DAILY Qty: 30 5RF albuterol sulfate 90 mcg/actuation HFA aerosol inhaler 2 inh inhalation Q6H PRN (Reason: shortness of breath or wheezing) 90 Days Qty: 8.5 3RF fluticasone propionate [Flonase Allergy Relief] 50 mcg/actuation spray,suspension 2 spray intranasal DAILY 90 Days Qty: 16 3RF Rx Instructions: administer into each nostril azelastine 137 mcg (0.1 %) aerosol,spray 2 spray intranasal HS 90 Days Qty: 30 3RF Rx Instructions: administer into each nostril Breztri Aerosphere 160-9-4.8 mcg/actuation HFA aerosol inhaler 1 inh INHALATION BID Qty: 10.7 2RF gabapentin 600 mg tablet 600 mg PO TID Qty: 90 1RF oxycodone-acetaminophen [Percocet] 7.5-325 mg tablet 1 tab PO TID Qty: 90 0RF sumatriptan succinate [Imitrex] 50 mg tablet See Rx Instructions PO .COMPLEX PRN (Reason: migraine headache) Qty: 30 3RF Rx Instructions: take 1 tab at onset of headache; if no relief may repeat 1 tab after at least 2 hrs; max = 4 tabs/24 hr PO PRN; Myrbetriq 50 mg tablet extended release 24 hr 50 mg PO DAILY Qty: 90 2RF ranolazine 500 mg tablet extended release 12 hr See Rx Instructions .ROUTE .COMPLEX Qty: 60 5RF Dose Instruction: TAKE 1 TABLET BY MOUTH TWICE DAILY Rx Instructions: TAKE 1 TABLET BY MOUTH TWICE DAILY spironolactone 50 mg tablet See Rx Instructions .ROUTE .COMPLEX Qty: 30 5RF Dose Instruction: TAKE 1 TABLET BY MOUTH ONCE DAILY Rx Instructions: TAKE 1 TABLET BY MOUTH ONCE DAILY losartan-hydrochlorothiazide 50-12.5 mg tablet See Rx Instructions .ROUTE .COMPLEX Qty: 30 5RF Dose Instruction: TAKE 1 TABLET BY MOUTH ONCE DAILY Rx Instructions: TAKE 1 TABLET BY MOUTH ONCE DAILY metoprolol succinate 25 mg tablet extended release 24 hr See Rx Instructions .ROUTE .COMPLEX Qty: 30 5RF Dose Instruction: TAKE 1 TABLET BY MOUTH ONCE DAILY Rx Instructions: TAKE 1 TABLET BY MOUTH ONCE DAILY Premarin 0.625 mg tablet See Rx Instructions .ROUTE .COMPLEX Qty: 90 2RF Dose Instruction: TAKE 1 TABLET BY MOUTH DAILY FOR HORMONE REPLACEMENT Rx Instructions: TAKE 1 TABLET BY MOUTH DAILY FOR HORMONE REPLACEMENT potassium chloride 20 mEq tablet,ER particles/crystals See Rx Instructions .ROUTE .COMPLEX Qty: 90 2RF Dose Instruction: TAKE 1 TABLET BY MOUTH DAILY FOR SUPPLEMENT Rx Instructions: TAKE 1 TABLET BY MOUTH DAILY FOR SUPPLEMENT montelukast 10 mg tablet See Rx Instructions .ROUTE .COMPLEX Qty: 90 2RF Dose Instruction: TAKE 1 TABLET BY MOUTH AT BEDTIME FOR ALLERGY SYMPTOMS Rx Instructions: TAKE 1 TABLET BY MOUTH AT BEDTIME FOR ALLERGY SYMPTOMS topiramate 100 mg tablet See Rx Instructions .ROUTE .COMPLEX Qty: 90 1RF Dose Instruction: TAKE 1 TABLET BY MOUTH ONCE DAILY Rx Instructions: TAKE 1 TABLET BY MOUTH ONCE DAILY pantoprazole 40 mg tablet,delayed release (DR/EC) See Rx Instructions .ROUTE .COMPLEX Qty: 90 1RF Dose Instruction: TAKE 1 TABLET BY MOUTH ONCE DAILY Rx Instructions: TAKE 1 TABLET BY MOUTH ONCE DAILY atorvastatin 40 mg tablet See Rx Instructions .ROUTE .COMPLEX Qty: 90 2RF Dose Instruction: TAKE 1 TABLET BY MOUTH AT BEDTIME Rx Instructions: TAKE 1 TABLET BY MOUTH AT BEDTIME promethazine-DM 6.25-15 mg/5 mL syrup 5 ml PO Q4-6H PRN (Reason: cough) Qty: 473 2RF sertraline 50 mg tablet See Rx Instructions .ROUTE .COMPLEX Qty: 90 0RF Dose Ins
--- NOTE | 2022-06-01 16:34 | PC.NURSE ---
speaking with ortho at this time.
[2022-06-01 17:13] VITALS: BP 111/72; PULSE 69; RESP 18; O2SAT 95
[2022-06-01 17:31] VITALS: BP 103/68; PULSE 64; RESP 18; TEMP 36.7; O2SAT 94
--- NOTE | 2022-06-01 17:36 | PC.NURSE ---
pt to ED r/t fall, diagnosed with fracture of L radius, orthoglass splint applied. Cap refill wnl to L hand/fingers, pt denies numbness tingling or decreased sensation.
== END 2022-06-01 17:37 | disposition home or self-care (01) ==
PROVIDERS: Emergency Provider Emergency Medicine; PCP Emergency Medicine
DX: S52.502A Unspecified fracture of the lower end of left radius, initial encounter for closed fracture (principal); W19.XXXA Unspecified fall, initial encounter; Z79.82 Long term (current) use of aspirin; Z79.899 Other long term (current) drug therapy; Z88.6 Allergy status to analgesic agent; Z82.49 Family history of ischemic heart disease and other diseases of the circulatory system; Z95.5 Presence of coronary angioplasty implant and graft; J45.909 Unspecified asthma, uncomplicated; N28.9 Disorder of kidney and ureter, unspecified; E07.9 Disorder of thyroid, unspecified; I11.0 Hypertensive heart disease with heart failure; I50.9 Heart failure, unspecified
CPT/HCPCS: 73090; 73110; 96374; 96375; 99284; J2405

== ENCOUNTER → 2022-06-26 13:49 | Outpatient (CLI) | payer MEDICAID, SELFPAY ==
[2022-06-26 14:12] LABS: Amphetamine/Metha Screen,Urine Negative ng/ml (<1000)
[2022-06-26 14:13] LABS: Barbiturates Screen,Urine Negative ng/ml (<200)
[2022-06-26 14:14] LABS: Benzodiazepines Screen,Urine Negative ng/ml (<200); Cannabinoid Screen,Urine Negative ng/ml (<50)
[2022-06-26 14:15] LABS: Cocaine Screen,Urine Negative ng/ml (<300); Methadone Screen,Urine Negative ng/ml (<300)
[2022-06-26 14:16] LABS: Opiate Screen,Urine Negative ng/ml (<300)
[2022-06-26 14:17] LABS: Phencyclidine Screen,Urine Negative ng/ml (<25)
== END ==
PROVIDERS: PCP Emergency Medicine; Visit Provider Emergency Medicine
DX: Z79.899 Other long term (current) drug therapy (principal)
CPT/HCPCS: 80305

== ENCOUNTER → 2022-07-05 07:09 | Outpatient (CLI) | payer MEDICAID, SELFPAY ==
--- NOTE | 2022-07-05 07:09 | CT_ITS ---
FINAL REPORT CLINICAL HISTORY: lung cancer screening former smoker, quit 12 years ago. smoked 1 ppd x 30 years. known CAD. Family hx of lung cancer COMPARISON: Chest CT dated 03/01/2021 FINDINGS: Axial images were obtained from the lung apex to the mid abdomen by computed tomography. Low-dose protocol was utilized. CTDl vol(mGy): 2.90 DLP (mGy-cm): 85.69 FINDINGS: There is no axillary adenopathy. There is no hilar or mediastinal adenopathy. The heart size is normal. There is no pericardial or pleural effusion. Previously questioned nodule in the left breast is not seen on today's exam. Limited images of the upper abdomen demonstrate calcified granulomas in the spleen. Lung window images demonstrate no suspicious infiltrate or nodule. IMPRESSION: Lung RADS category 1. Recommend 12 month follow-up low-dose chest CT. Reviewed, Interpreted and Dictated by eLo Green MD Transcribed by Amina Zapata Authenticated and . [facility]
--- NOTE | 2022-07-05 08:02 | CA_ITS ---
FINAL REPORT CLINICAL HISTORY: bruit FINDINGS: An ultrasound of the carotid arteries was performed. Duplex Doppler evaluation with spectral analysis was performed. The peak systolic velocity of the right common carotid artery is 74 cm/s. The peak systolic velocity of the right internal carotid artery is 78 cm/s and end diastolic velocity 27 cm/s. A minimal amount of plaque is present. The right external carotid artery is patent. The right vertebral artery is patent with antegrade flow. ICA/CCA ratio: 1.2 The peak systolic velocity of the left common carotid artery is 84 cm/s. The peak systolic velocity of the left internal carotid artery is 68 cm/s and end diastolic velocity 27 cm/s. A minimal amount of plaque is present. The left external carotid artery is patent. The left vertebral artery is patent with antegrade flow. ICA/CCA ratio: Bilateral patent vertebral arteries with antegrade flow. IMPRESSION: Less than 50% bilateral carotid stenosis. Reviewed, Interpreted and Dictated by Leo Green MD Transcribed by Levy Montes Authenticated and . [facility]
== END ==
PROVIDERS: PCP Emergency Medicine; Visit Provider Internal Medicine Pulmonary Disease
DX: Z87.891 Personal history of nicotine dependence (principal); Z12.2 Encounter for screening for malignant neoplasm of respiratory organs; R09.89 Other specified symptoms and signs involving the circulatory and respiratory systems
CPT/HCPCS: 71271; 93880; 94060; 94726; 94729

== ENCOUNTER → 2022-10-09 23:54 | Outpatient (CLI) | payer MEDICAID, SELFPAY ==
[2022-10-09 17:59] LABS: Amphetamine/Metha Screen,Urine Negative ng/ml (<1000); Barbiturates Screen,Urine Negative ng/ml (<200); Benzodiazepines Screen,Urine Negative ng/ml (<200); Cannabinoid Screen,Urine Negative ng/ml (<50); Cocaine Screen,Urine Negative ng/ml (<300); Methadone Screen,Urine Negative ng/ml (<300); Opiate Screen,Urine Negative ng/ml (<300); Phencyclidine Screen,Urine Negative ng/ml (<25)
== END ==
PROVIDERS: PCP Emergency Medicine; Visit Provider Emergency Medicine
DX: Z79.899 Other long term (current) drug therapy (principal)
CPT/HCPCS: 80305

== ENCOUNTER → 2022-11-12 10:00 | Outpatient (CLI) | payer MEDICAID, SELFPAY | PROVIDERS: PCP Nurse Practitioner Family; Visit Provider Nurse Practitioner Family | DX: N39.0 Urinary tract infection, site not specified (principal) | CPT/HCPCS: 87086 ==

== ENCOUNTER 2022-11-15 18:40 | Emergency (ER) | payer MEDICAID, SELFPAY ==
[2022-11-15 18:54] VITALS: BP 151/80; PULSE 74; RESP 15; TEMP 37.1; O2SAT 97; BMI 41.1
--- NOTE | 2022-11-15 18:57 | XR_ITS ---
PROCEDURE INFORMATION: Exam: XR Right Wrist Exam date and time: 11/15/2022 7:41 PM Age: 57 years old Clinical indication: Injury or trauma; Fall; Blunt trauma (contusions or hematomas); Wrist; Right; Additional info: Tripped and fell, hyperflexed right wrist w swelli TECHNIQUE: Imaging protocol: Radiologic exam of the right wrist. Views: 3 or more views. COMPARISON: CR XR HAND RT 2V 03/11/2020 7:04 PM FINDINGS: Bones/joints: There is no evidence of acute fracture or dislocation. Joint spaces appear preserved. Soft tissues: Soft tissue fullness suggestive of edema involves the dorsum of the wrist at the level of the carpus. No subcutaneous emphysema or radiopaque foreign bodies. IMPRESSION: No acute posttraumatic osseous injury. Soft tissue edema.
--- NOTE | 2022-11-15 18:58 | XR_ITS ---
PROCEDURE INFORMATION: Exam: XR Right Shoulder Exam date and time: 11/15/2022 7:38 PM Age: 57 years old Clinical indication: Injury or trauma; Other: Fall on shoulder; Prior surgery; Surgery date: 1-6 months; Surgery type: Rotator cuff SX x 6 weeks ago; Additional info: Tripped, fell, R shoulder pain, 10/05/22 rotator SX TECHNIQUE: Imaging protocol: Radiologic exam of the right shoulder. Views: 2 or more views. COMPARISON: CT LUNG SCREENING 07/05/2022 7:17 AM FINDINGS: Bones/joints: There is no evidence of acute fracture or dislocation. There is a hazy appearance to the distal cortex of the right clavicle and mild widening of the acromioclavicular joint space. Findings raise the question of possible acro-osteolysis or subtle erosive change. Septic joint should be excluded on clinical basis. The coricoclavicular and glenohumeral joints appear intact. No appreciable rib fractures. Soft tissues: No significant soft tissue edema. No subcutaneous emphysema or radiopaque foreign bodies. The visualized right lung appears clear. No pneumothorax. IMPRESSION: 1. No acute posttraumatic osseous injury. 2. Hazy appearance to the distal cortex of the right clavicle and mild widening of the acromioclavicular joint space. Findings raise the question of possible acro-osteolysis or subtle erosive change. Early/mild septic or inflammatory joint should be excluded on clinical basis.
[2022-11-15 19:00] VITALS: BP 145/84; PULSE 66; O2SAT 98
--- NOTE | 2022-11-15 19:08 | CT_ITS ---
PROCEDURE INFORMATION: Exam: CT Head Without Contrast Exam date and time: 11/15/2022 8:17 PM Age: 57 years old Clinical indication: Injury or trauma; Fall; Additional info: Fall onto head, superior contusion/swelling TECHNIQUE: Imaging protocol: Computed tomography of the head without contrast. Radiation optimization: All CT scans at this facility use at least one of these dose optimization techniques: automated exposure control; mA and/or kV adjustment per patient size (includes targeted exams where dose is matched to clinical indication); or iterative reconstruction. REPORTING DATA: Count of CT and Cardiac NM exams in prior 12 months: This patient has received 4 known CTs and 0 known cardiac nuclear medicine studies in the 12 months prior to the current study. COMPARISON: [facility] CT HEAD W/O CONTRAST 05/07/2017 1:27 PM FINDINGS: Brain: Mild diffuse cerebral atrophy is consistent with this patient's age. The cortical/white matter interfaces are preserved throughout the brain. There is mild heterogeneity and patchy areas of bilateral decreased attenuation of the white matter consistent with chronic white matter ischemic change. The visualized basilar cisterns are patent. There is no evidence of acute hemorrhage within the brain parenchyma or the subarachnoid space. There is no evidence of mass, mass effect or midline shift. The intracranial vasculature demonstrates diffuse moderate atherosclerotic calcification. Cerebral ventricles: The ventricular system is normal in size and distribution. Paranasal sinuses: The visualized portions of the sinuses are clear. Mastoid air cells: The mastoid sinuses are normal. Orbital cavities: The orbits are normal. Bones/joints: There is no evidence of acute fracture. Soft tissues: No significant soft tissue edema. IMPRESSION: No acute posttraumatic intracranial abnormality.
--- NOTE | 2022-11-15 19:09 | CT_ITS ---
PROCEDURE INFORMATION: Exam: CT Cervical Spine Without Contrast Exam date and time: 11/15/2022 8:19 PM Age: 57 years old Clinical indication: Injury or trauma; Fall; Additional info: Fall forward from standing, onto head and neck pain TECHNIQUE: Imaging protocol: Computed tomography of the cervical spine without contrast. Radiation optimization: All CT scans at this facility use at least one of these dose optimization techniques: automated exposure control; mA and/or kV adjustment per patient size (includes targeted exams where dose is matched to clinical indication); or iterative reconstruction. REPORTING DATA: Count of CT and Cardiac NM exams in prior 12 months: This patient has received 4 known CTs and 0 known cardiac nuclear medicine studies in the 12 months prior to the current study. COMPARISON: [facility] CT CERVICAL SPINE W/O CONT 05/07/2017 1:31 PM FINDINGS: Bones/joints: Alignment is intact from skull base to T1. The atlantooccipital articulations are preserved. The facet joints are appropriately aligned. The predental interval appears normal. Patient is status post anterior discectomy and fusion at the C5-C6 level, appearing in near anatomic alignment and stable from prior exam. Side plate with 2 screws appear unchanged. Minor facet degenerative arthropathy is present, most noted at the C4 through C6 levels. Vertebral body heights are intact without compression fracture. There is very trace anterior spondylolisthesis of C6 on C7. Alignment is otherwise intact. No significant central canal or neural foraminal stenosis. No significant focal disc protrusions. Paranasal sinuses: The visualized portions of the sinuses are clear. Mastoid air cells: The visualized mastoid sinuses are normal. Prevertebral and retropharyngeal spaces: Prevertebral soft tissues are within range of normal. No focal soft tissue hematomas. Lungs: The visualized portions of the lung apices are normal. Lymph nodes: No pathologic adenopathy. Soft tissues: No focal soft tissue hematomas. No significant soft tissue edema. IMPRESSION: 1. No acute posttraumatic osseous abnormality. 2. Stable appearance to the anterior postoperative fusion changes at C5-C6.
--- NOTE | 2022-11-15 19:10 | CT_ITS ---
PROCEDURE INFORMATION: Exam: CT Thoracic Spine Without Contrast Exam date and time: 11/15/2022 8:21 PM Age: 57 years old Clinical indication: Injury or trauma; Fall; Additional info: Fall from standing, back pain TECHNIQUE: Imaging protocol: Computed tomography of the thoracic spine without contrast. Radiation optimization: All CT scans at this facility use at least one of these dose optimization techniques: automated exposure control; mA and/or kV adjustment per patient size (includes targeted exams where dose is matched to clinical indication); or iterative reconstruction. REPORTING DATA: Count of CT and Cardiac NM exams in prior 12 months: This patient has received 4 known CTs and 0 known cardiac nuclear medicine studies in the 12 months prior to the current study. COMPARISON: CT CERVICAL SPINE WO CON 11/15/2022 8:19 PM FINDINGS: Bones/joints: Vertebral body height and AP alignment is preserved. Mild to moderate prevertebral osteophytosis. No acute thoracic spine fracture. No osseous destruction. There is degenerative endplate irregularity. No definite significant central canal stenosis within limitations of technique. Soft tissues: Unremarkable. Pleural spaces: No visible pneumothorax. IMPRESSION: No acute thoracic spine fracture.
--- NOTE | 2022-11-15 19:10 | CT_ITS ---
PROCEDURE INFORMATION: Exam: CT Lumbar Spine Without Contrast Exam date and time: 11/15/2022 8:24 PM Age: 57 years old Clinical indication: Injury or trauma; Fall; Additional info: Fall from standing, low back pain acute v chronic TECHNIQUE: Imaging protocol: Computed tomography of the lumbar spine without contrast. Radiation optimization: All CT scans at this facility use at least one of these dose optimization techniques: automated exposure control; mA and/or kV adjustment per patient size (includes targeted exams where dose is matched to clinical indication); or iterative reconstruction. REPORTING DATA: Count of CT and Cardiac NM exams in prior 12 months: This patient has received 4 known CTs and 0 known cardiac nuclear medicine studies in the 12 months prior to the current study. COMPARISON: CT THORACIC SPINE WO CON 11/15/2022 8:21 PM FINDINGS: Tubes, catheters and devices: There is left sacral nerve stimulator. Bones/joints: Mild levoconvex curvature. Vertebral body heights are preserved. Trace retrolisthesis of L1 on L2. Mild prevertebral osteophytosis. There are facet joint degenerative changes. No acute lumbar spine fracture. No definite significant central canal stenosis within limitations of technique. Vasculature: Vascular calcification. Soft tissues: Unremarkable. IMPRESSION: No acute lumbar spine fracture.
[2022-11-15 19:30] VITALS: BP 142/76; PULSE 72; O2SAT 96
--- NOTE | 2022-11-15 19:37 | PC.NURSE ---
Rounded on pt. pt provided with blanket and updated on POC.
[2022-11-15 20:30] VITALS: BP 139/89; PULSE 62; O2SAT 98
--- NOTE | 2022-11-15 20:46 | PC.NURSE ---
Rounded on pt. No needs or complaints voiced at this time.
--- NOTE | 2022-11-15 20:50 | HMH.EDGENADL ---
Discharge Plan Disposition Patient Disposition: Home, Self-Care Condition: Good Chief Complaint: Fall Prescriptions Prescriptions: No Action furosemide [Lasix] 40 mg tablet 40 mg PO DAILY Qty: 30 5RF albuterol sulfate 90 mcg/actuation HFA aerosol inhaler 2 inh inhalation Q6H PRN (Reason: shortness of breath or wheezing) 90 Days Qty: 8.5 3RF fluticasone propionate [Flonase Allergy Relief] 50 mcg/actuation spray,suspension 2 spray intranasal DAILY 90 Days Qty: 16 3RF Rx Instructions: administer into each nostril azelastine 137 mcg (0.1 %) aerosol,spray 2 spray intranasal HS 90 Days Qty: 30 3RF Rx Instructions: administer into each nostril gabapentin 600 mg tablet 600 mg PO TID Qty: 90 1RF oxycodone-acetaminophen [Percocet] 7.5-325 mg tablet 1 tab PO TID PRN (Reason: pain) Qty: 90 0RF ondansetron HCl 4 mg tablet 4 mg PO DAILY Qty: 30 0RF meclizine 25 mg tablet 25 mg PO QID PRN (Reason: dizziness or vertigo) Qty: 120 2RF cephalexin 500 mg capsule 500 mg PO BID 10 Days Qty: 20 0RF sumatriptan succinate [Imitrex] 50 mg tablet See Rx Instructions PO .COMPLEX PRN (Reason: migraine headache) Qty: 30 3RF Rx Instructions: take 1 tab at onset of headache; if no relief may repeat 1 tab after at least 2 hrs; max = 4 tabs/24 hr PO PRN; ranolazine 500 mg tablet extended release 12 hr See Rx Instructions .ROUTE .COMPLEX Qty: 60 5RF Dose Instruction: TAKE 1 TABLET BY MOUTH TWICE DAILY Rx Instructions: TAKE 1 TABLET BY MOUTH TWICE DAILY Premarin 0.625 mg tablet See Rx Instructions .ROUTE .COMPLEX Qty: 90 2RF Dose Instruction: TAKE 1 TABLET BY MOUTH DAILY FOR HORMONE REPLACEMENT Rx Instructions: TAKE 1 TABLET BY MOUTH DAILY FOR HORMONE REPLACEMENT potassium chloride 20 mEq tablet,ER particles/crystals See Rx Instructions .ROUTE .COMPLEX Qty: 90 2RF Dose Instruction: TAKE 1 TABLET BY MOUTH DAILY FOR SUPPLEMENT Rx Instructions: TAKE 1 TABLET BY MOUTH DAILY FOR SUPPLEMENT montelukast 10 mg tablet See Rx Instructions .ROUTE .COMPLEX Qty: 90 2RF Dose Instruction: TAKE 1 TABLET BY MOUTH AT BEDTIME FOR ALLERGY SYMPTOMS Rx Instructions: TAKE 1 TABLET BY MOUTH AT BEDTIME FOR ALLERGY SYMPTOMS atorvastatin 40 mg tablet See Rx Instructions .ROUTE .COMPLEX Qty: 90 2RF Dose Instruction: TAKE 1 TABLET BY MOUTH AT BEDTIME Rx Instructions: TAKE 1 TABLET BY MOUTH AT BEDTIME levothyroxine 100 mcg tablet See Rx Instructions .ROUTE .COMPLEX Qty: 90 2RF Dose Instruction: TAKE 1 TABLET BY MOUTH EVERY MORNING ON AN EMPTY STOMACH Rx Instructions: TAKE 1 TABLET BY MOUTH EVERY MORNING ON AN EMPTY STOMACH Myrbetriq 50 mg tablet extended release 24 hr See Rx Instructions .ROUTE .COMPLEX Qty: 90 1RF Dose Instruction: TAKE 1 TABLET BY MOUTH DAILY FOR BLADDER Rx Instructions: TAKE 1 TABLET BY MOUTH DAILY FOR BLADDER losartan-hydrochlorothiazide 50-12.5 mg tablet See Rx Instructions .ROUTE .COMPLEX Qty: 90 5RF Dose Instruction: TAKE 1 TABLET BY MOUTH ONCE DAILY Rx Instructions: TAKE 1 TABLET BY MOUTH ONCE DAILY nystatin [Nyamyc] 100,000 unit/gram powder See Rx Instructions .ROUTE .COMPLEX Qty: 60 1RF Dose Instruction: USE TWICE DAILY DIRECTED Rx Instructions: USE TWICE DAILY DIRECTED metoprolol succinate 25 mg tablet extended release 24 hr See Rx Instructions .ROUTE .COMPLEX Qty: 30 4RF Dose Instruction: TAKE 1 TABLET BY MOUTH ONCE DAILY Rx Instructions: TAKE 1 TABLET BY MOUTH ONCE DAILY spironolactone 50 mg tablet See Rx Instructions .ROUTE .COMPLEX Qty: 30 4RF Dose Instruction: TAKE 1 TABLET BY MOUTH ONCE DAILY Rx Instructions: TAKE 1 TABLET BY MOUTH ONCE DAILY hydroxyzine HCl 50 mg tablet See Rx Instructions .ROUTE .COMPLEX Qty: 90 0RF Dose Instruction: TAKE 1 TABL
[2022-11-15 21:03] VITALS: BP 146/95; PULSE 71; O2SAT 97
[2022-11-15 22:01] VITALS: BP 134/78; PULSE 61; RESP 16; TEMP 37.1; O2SAT 97
== END 2022-11-15 22:05 | disposition home or self-care (01) ==
PROVIDERS: Emergency Provider Emergency Medicine; PCP Emergency Medicine
DX: S13.4XXA Sprain of ligaments of cervical spine, initial encounter (principal); S63.501A Unspecified sprain of right wrist, initial encounter; S46.911A Strain of unspecified muscle, fascia and tendon at shoulder and upper arm level, right arm, initial encounter; W17.2XXA Fall into hole, initial encounter
CPT/HCPCS: 70450; 72125; 72128; 72131; 73030; 73110; 99284; 99285

== ENCOUNTER → 2022-12-11 23:17 | Outpatient (CLI) | payer MEDICAID, SELFPAY ==
[2022-12-11 18:44] LABS: Basophils # 0.1 K/mm3 (0-0.2); Basophils % 0.7 % (0.1-2.0); Eosinophils # 0.1 K/mm3 (0.0-0.4); Eosinophils % 1.1 % (0.1-12.0); Hemoglobin 13.2 g/dL (12.2-16.2); Lymphocytes # 2.8 K/mm3 (0.7-4.5); Lymphocytes % 29.9 % (10-50); Mean Corpuscular HGB Conc 32.1 g/dL (31.8-35.4); Mean Corpuscular Hemoglobin 28.6 pg (27.0-31.2); Mean Corpuscular Volume 89.1 fl (81-99); Mean Platelet Volume 8.8 fl (7.4-10.4); Monocytes # 0.4 K/mm3 (0.1-1.0); Neutrophils % 64.4 % (37.0-80.0); Platelet Count 346 K/mm3 (142-424); Red Cell Distribution Width 14.4 % (11.5-17.5); White Blood Count 9.3 K/mm3 (4.8-10.8)
[2022-12-11 19:02] LABS: Alanine Aminotransferase 21 U/L (12-78); Albumin Level 4.5 g/dl (3.5-5.0); Albumin/Globulin Ratio 1.6 (1.1-1.8); Alkaline Phosphatase 135 U/L (38-126); Anion Gap 17.7 mEq/L (5-15); Aspartate Amino Transferase 26 U/L (14-36); Bilirubin,Total 0.4 mg/dl (0.2-1.3); Blood Urea Nitrogen 16 mg/dl (7-17); Calcium 9.1 mg/dl (8.4-10.2); Carbon Dioxide 26 mmol/L (22.0-30.0); Chloride 100 mmol/L (98-107); Chol/HDL Ratio 3.9 (1-3.5); Cholesterol 137 mg/dl (140-200); Estimated Glomerular Filt Rate 74 ml/min (>60); GFR (African American) 89 ML/MIN (>60); Globulin 2.9 g/dL (1.3-3.2); Glucose 106 mg/dl (74-100); HDL Cholesterol 35 mg/dl (40-60); Potassium 3.7 mmoL/L (3.5-5.1); Sodium 140 mmol/L (136-145); Total Protein,Serum 7.4 g/dl (6.3-8.2); Triglycerides 214 mg/dl (30-150); VLDL Cholesterol 43 mg/dL (0-40)
[2022-12-11 19:13] LABS: Direct LDL Cholesterol 71.87 mg/dL (100-129)
[2022-12-11 19:24] LABS: 25-OH Vitamin D, Total 30.1 ng/mL (30-100)
[2022-12-11 19:26] LABS: Free T4 (Free Thyroxine) 1.11 ng/dl (0.78-2.19)
[2022-12-11 19:38] LABS: Thyroid Stimulating Hormone 2.72 uIU/mL (0.465-4.68)
[2022-12-11 20:19] LABS: Amphetamine/Metha Screen,Urine Negative ng/ml (<1000)
[2022-12-11 20:20] LABS: Barbiturates Screen,Urine Negative ng/ml (<200); Benzodiazepines Screen,Urine Negative ng/ml (<200)
[2022-12-11 20:21] LABS: Cannabinoid Screen,Urine Negative ng/ml (<50)
[2022-12-11 20:22] LABS: Cocaine Screen,Urine Negative ng/ml (<300); Methadone Screen,Urine Negative ng/ml (<300)
[2022-12-11 20:23] LABS: Opiate Screen,Urine Negative ng/ml (<300)
[2022-12-11 20:24] LABS: Phencyclidine Screen,Urine Negative ng/ml (<25)
== END ==
PROVIDERS: PCP Emergency Medicine; Visit Provider Emergency Medicine
DX: E03.9 Hypothyroidism, unspecified (principal); E66.01 Morbid (severe) obesity due to excess calories; Z68.41 Body mass index [BMI] 40.0-44.9, adult; Z79.899 Other long term (current) drug therapy
CPT/HCPCS: 80053; 80061; 80305; 82306; 84439; 84443; 85025

== ENCOUNTER 2022-12-20 10:27 | Outpatient (RCR) | payer MEDICAID, SELFPAY ==
--- NOTE | 2022-12-20 11:36 | HMH.PTOPEV ---
PT Outpatient Evaluation Rehab PT Outpatient Evaluation Start: 12/20/22 11:19 Freq: Status: Active Protocol: Document 12/20/22 11:19 ROYER (Rec: 12/20/22 11:36 ROYER [id number]) E-signed By Bong Fisher, PT Outpatient Therapy Subjective History Subjective History Pt reports gait and balance distrubances over the last ~2- 3 months, which coincide with some episodes of dizziness, fainting, and blacking out. Pt reports multiple falls in the last 3 months, 'not sure if I 've had a mini stroke, but my left side feels a little weak too.' Pt reports frequent episodes of dizziness/light headedness w/position changes at home. PMH: B/L TKA'S, R SH RTC REPAIR, L WRIST FX Chief Complaint Pain,Paresthesia,Weakness Symptom Type Ache,Dull Symptoms Relieved By Rest/Positioning Symptoms Aggravated By Standing,Walking Prior Functional Limitations Housework,Standing,Walking, Balance Current Functional Limitations Housework,Standing,Walking, Balance Symptom Description Constant but Variable Level of pain today (0-10) 4 Pain scale - at its best (0-10) 3 Pain scale - at its worst (0-10) 8 Hip/Knee Eval Gait Observation General Gait Pattern Observation Wide Based Gait,Ataxic Gait Assistive Device Assistive Devices None / NA MMT bilateral Hip Flexion Strength Grade 4- Good- Hip Abduction Strength Grade 4- Good- Hip Adduction Strength Grade 4 Good Hip Extension Strength Grade 4 Good Knee Extension Strength Grade 5 Normal Knee Flexion Strength Grade 5 Normal Ankle/Foot Eval MMT Ankle Dorsiflexion Strength Grade 5 Normal Balance Eval Timed Up and Go Test 1. Is the Timed Up and Go test result > yes or = to 12 seconds? Tinetti Sitting Balance Sitting Balance Steady, safe Arising from Chair Ability to Arise Able, uses arms to help Attempts to Arise Arises on 1st attempt Standing Balance Immediate Standing Balance Unsteady Standing Balance Unsteady Nudged Response Begins to fall Standing with Eyes Closed Unsteady Turning Step Pattern Turning 360 Degrees Continuous steps Stability Turning 360 Degrees Steady Sitting Down Sitting Down Uses arms or unsteady Gait and Step Initiation of Gait No
== END 2022-12-20 10:30 | disposition home or self-care (01) ==
LOC: PT 10:27
PROVIDERS: PCP Emergency Medicine; Visit Provider Emergency Medicine
DX: R26.9 Unspecified abnormalities of gait and mobility (principal); Z91.81 History of falling
CPT/HCPCS: 97163

== ENCOUNTER → 2023-01-03 13:44 | Outpatient (CLI) | payer MEDICAID, SELFPAY | PROVIDERS: PCP Emergency Medicine; Visit Provider Physician Assistant | DX: G45.9 Transient cerebral ischemic attack, unspecified (principal) ==

== ENCOUNTER → 2023-01-07 09:18 | Outpatient (CLI) | payer MEDICAID, SELFPAY ==
--- NOTE | 2023-01-07 09:38 | MR_ITS ---
FINAL REPORT CLINICAL HISTORY: Dizziness, memory loss, optic nerve swelling. left sided headache FINDINGS: Multiplanar MR imaging of the brain was performed without and with contrast. Motion artifact limits exam sensitivity. There are multiple foci of increased T2 signal in the deep white matter, largest measuring 23 mm in the left frontal periventricular region which may represent demyelination versus moderate chronic ischemic/gliotic change. There is no evidence of intracranial hemorrhage or mass. No abnormal extra-axial fluid collection is seen. The ventricular size is within normal limits. There is no evidence of shift of the midline structures. The posterior fossa and brainstem have an unremarkable appearance. No area of abnormal restricted diffusion is identified. No abnormal contrast enhancement is seen. Normal major vessel vascular flow voids are noted. IMPRESSION: Foci of increased T2 signal measuring up to 23 mm in the left frontal periventricular region which may represent demyelination versus moderate chronic ischemic/gliotic change. Otherwise, no acute intracranial abnormality. Reviewed, Interpreted and Dictated by Marty Cunha III, MD Transcribed by Clau Graham Authenticated and [facility]
[2023-01-07 09:46] LABS: Anion Gap 18.4 mEq/L (5-15); Blood Urea Nitrogen 18 mg/dl (7-17); Calcium 9.5 mg/dl (8.4-10.2); Carbon Dioxide 28 mmol/L (22.0-30.0); Chloride 100 mmol/L (98-107); Estimated Glomerular Filt Rate 64 ml/min (>60); GFR (African American) 78 ML/MIN (>60); Glucose 116 mg/dl (74-100); Potassium 4.4 mmoL/L (3.5-5.1); Sodium 142 mmol/L (136-145)
== END ==
PROVIDERS: Specialist; PCP Emergency Medicine; Visit Provider Physician Assistant
DX: R42 Dizziness and giddiness (principal); R41.3 Other amnesia; H47.10 Unspecified papilledema
CPT/HCPCS: 36415; 70553; 80048; A9576

== ENCOUNTER → 2023-02-01 13:23 | Outpatient (CLI) | payer MEDICAID, SELFPAY ==
--- NOTE | 2023-02-01 13:23 | MR_ITS ---
FINAL REPORT TECHNIQUE: 3-D [id number] sequences without contrast CLINICAL HISTORY: Left trigeminal neuralgia. DIZZINESS. PAIN ABOVE RIGHT EYE. HEADACHE FINDINGS: The distal internal carotid arteries are unremarkable. MCAs and ACAs are unremarkable. Basilar artery is widely patent. farm machine tender are intact. No aneurysm is seen. IMPRESSION: Unremarkable MRA head Reviewed, Interpreted and Dictated by Tete Seth MD Transcribed by Dana Oconnell Authenticated and . [facility]
== END ==
PROVIDERS: PCP Emergency Medicine; Visit Provider Specialist
DX: G50.0 Trigeminal neuralgia (principal)
CPT/HCPCS: 70544

== ENCOUNTER → 2023-03-06 12:56 | Outpatient (CLI) | payer MEDICAID, SELFPAY ==
[2023-03-06 13:07] LABS: Amphetamine/Metha Screen,Urine Negative ng/ml (<1000); Barbiturates Screen,Urine Negative ng/ml (<200)
[2023-03-06 13:08] LABS: Benzodiazepines Screen,Urine Negative ng/ml (<200)
[2023-03-06 13:09] LABS: Cannabinoid Screen,Urine Negative ng/ml (<50); Cocaine Screen,Urine Negative ng/ml (<300)
[2023-03-06 13:10] LABS: Methadone Screen,Urine Negative ng/ml (<300)
[2023-03-06 13:12] LABS: Opiate Screen,Urine Negative ng/ml (<300)
[2023-03-06 13:13] LABS: Phencyclidine Screen,Urine Negative ng/ml (<25)
== END ==
PROVIDERS: PCP Emergency Medicine; Visit Provider Emergency Medicine
DX: Z79.899 Other long term (current) drug therapy (principal)
CPT/HCPCS: 80305

== ENCOUNTER 2023-03-14 13:05 | Emergency (ER) | payer MEDICAID, SELFPAY ==
[2023-03-14] VITALS (12 sets, daily range): BP systolic 102–134; BP diastolic 61–91; PULSE 67–82; RESP 16–20; TEMP 36.8; O2SAT 94–98; BMI 41.9
[2023-03-14 13:42] LABS: Microscopic, Urine URINE MICROSCOPIC (MICROSCOPIC)
--- NOTE | 2023-03-14 13:42 | PC.NURSE ---
Provider at bedside. Warm blanket provided. Pt updated on plan of care.
--- NOTE | 2023-03-14 13:43 | CT_ITS ---
FINAL REPORT TECHNIQUE: Thin section axial images were obtained through the abdomen after intravenous contrast. Reconstruction images were obtained from the axial data. Exam was performed using dose reduction techniques. CLINICAL HISTORY: rlq pain, intermittent severe, dysuria COMPARISON: 06/10/2019 FINDINGS: The lung bases are clear. The liver is homogeneous. The gallbladder is absent. The spleen, adrenal glands, and pancreas are unremarkable. There is no hydronephrosis or solid renal mass. Abdominal GI tract is without acute abnormality. There is no abdominal lymphadenopathy or ascites. The patient is status post hysterectomy. The pelvic portions of the GI tract are without acute abnormality. The appendix is not visualized but there are no secondary findings to suggest appendicitis. No abnormal adnexal mass is identified. There is no pelvic lymphadenopathy or ascites. No acute osseous abnormalities identified. IMPRESSION: No CT evidence of acute intra-abdominal or intrapelvic abnormality. Reviewed, Interpreted and Dictated by Cece Jimenez MD Transcribed by Aziza Peña Authenticated and [facility]
--- NOTE | 2023-03-14 13:45 | HMH.EDGENADL ---
Discharge Plan Disposition Chief Complaint: Abdominal Pain Prescriptions Prescriptions: No Action albuterol sulfate 90 mcg/actuation HFA aerosol inhaler 2 inh inhalation Q6H PRN (Reason: shortness of breath or wheezing) 90 Days Qty: 8.5 3RF fluticasone propionate [Flonase Allergy Relief] 50 mcg/actuation spray,suspension 2 spray intranasal DAILY 90 Days Qty: 16 3RF Rx Instructions: administer into each nostril azelastine 137 mcg (0.1 %) aerosol,spray 2 spray intranasal HS 90 Days Qty: 30 3RF Rx Instructions: administer into each nostril diclofenac sodium 75 mg tablet,delayed release (DR/EC) 75 mg PO BID gabapentin 600 mg tablet 600 mg PO TID Qty: 90 1RF oxycodone-acetaminophen [Percocet] 7.5-325 mg tablet 1 tab PO TID PRN (Reason: pain) Qty: 90 0RF carbamazepine 100 mg tablet,chewable 100 mg PO TID Qty: 30 3RF meclizine 25 mg tablet 25 mg PO QID PRN (Reason: dizziness or vertigo) Qty: 120 2RF fluconazole [Diflucan] 100 mg tablet 100 mg PO DAILY Qty: 5 0RF levothyroxine 100 mcg tablet See Rx Instructions .ROUTE .COMPLEX Qty: 90 2RF Dose Instruction: TAKE 1 TABLET BY MOUTH EVERY MORNING ON AN EMPTY STOMACH Rx Instructions: TAKE 1 TABLET BY MOUTH EVERY MORNING ON AN EMPTY STOMACH losartan-hydrochlorothiazide 50-12.5 mg tablet See Rx Instructions .ROUTE .COMPLEX Qty: 90 5RF Dose Instruction: TAKE 1 TABLET BY MOUTH ONCE DAILY Rx Instructions: TAKE 1 TABLET BY MOUTH ONCE DAILY nystatin [Nyamyc] 100,000 unit/gram powder See Rx Instructions .ROUTE .COMPLEX Qty: 60 1RF Dose Instruction: USE TWICE DAILY DIRECTED Rx Instructions: USE TWICE DAILY DIRECTED sertraline 50 mg tablet See Rx Instructions .ROUTE .COMPLEX Qty: 135 3RF Dose Instruction: TAKE 1 & 1/2 TABLETS BY MOUTH AT BEDTIME FOR MOOD Rx Instructions: TAKE 1 & 1/2 TABLETS BY MOUTH AT BEDTIME FOR MOOD pantoprazole 40 mg tablet,delayed release (DR/EC) See Rx Instructions .ROUTE .COMPLEX Qty: 90 1RF Dose Instruction: TAKE 1 TABLET BY MOUTH ONCE DAILY Rx Instructions: TAKE 1 TABLET BY MOUTH ONCE DAILY Premarin 0.625 mg tablet See Rx Instructions .ROUTE .COMPLEX Qty: 90 2RF Dose Instruction: TAKE 1 TABLET BY MOUTH DAILY FOR HORMONE REPLACEMENT Rx Instructions: TAKE 1 TABLET BY MOUTH DAILY FOR HORMONE REPLACEMENT montelukast 10 mg tablet See Rx Instructions .ROUTE .COMPLEX Qty: 90 2RF Dose Instruction: TAKE 1 TABLET BY MOUTH AT BEDTIME FOR ALLERGY SYMPTOMS Rx Instructions: TAKE 1 TABLET BY MOUTH AT BEDTIME FOR ALLERGY SYMPTOMS topiramate 100 mg tablet See Rx Instructions .ROUTE .COMPLEX Qty: 90 0RF Dose Instruction: TAKE 1 TABLET BY MOUTH ONCE DAILY Rx Instructions: TAKE 1 TABLET BY MOUTH ONCE DAILY atorvastatin 80 mg tablet 80 mg PO HS Qty: 90 3RF cetirizine 10 mg tablet See Rx Instructions .ROUTE .COMPLEX Qty: 30 2RF Dose Instruction: TAKE 1 TABLET BY MOUTH EVERY DAY Rx Instructions: TAKE 1 TABLET BY MOUTH EVERY DAY hydroxyzine HCl 50 mg tablet See Rx Instructions .ROUTE .COMPLEX Qty: 90 0RF Dose Instruction: TAKE 1 TABLET BY MOUTH THREE TIMES DAILY NEEDED FOR ITCHING Rx Instructions: TAKE 1 TABLET BY MOUTH THREE TIMES DAILY NEEDED FOR ITCHING trazodone 100 mg tablet See Rx Instructions .ROUTE .COMPLEX Qty: 90 0RF Dose Instruction: TAKE 1 TABLET BY MOUTH AT BEDTIME Rx Instructions: TAKE 1 TABLET BY MOUTH AT BEDTIME spironolactone 50 mg tablet See Rx Instructions .ROUTE .COMPLEX Qty: 30 4RF Dose Instruction: TAKE 1 TABLET BY MOUTH ONCE DAILY Rx Instructions: TAKE 1 TABLET BY MOUTH ONCE DAILY metoprolol succinate 25 mg tablet extended release 24 hr See Rx Instructions .ROUTE .COMPLEX Qty: 30 4RF Dose Instruction: TAKE 1 TABLET BY MOUTH ONCE DAILY Rx Instru
[2023-03-14 13:46] LABS: Appearance,Urine CLEAR (Clear); Bilirubin,Urine Negative (Negative); Blood, Urine Negative (Negative); Color,Urine YELLOW (Yellow); Glucose,Urine (UA) Negative (Negative); Ketones,Urine Negative (Negative); Leukocyte Esterase,Urine Negative (Negative); Nitrate,Urine Negative (Negative); PH,Urine 7.5 (5.0-8.5); Protein,Urine Negative (Negative); Specific Gravity, Urine 1.015 (1.005-1.030); Urobilinogen,Urine 0.2 EU/dl (0.2)
[2023-03-14 14:03] LABS: Alanine Aminotransferase 19 U/L (12-78); Albumin Level 4.5 g/dl (3.5-5.0); Albumin/Globulin Ratio 1.4 (1.1-1.8); Alkaline Phosphatase 150 U/L (38-126); Anion Gap 13.1 mEq/L (5-15); Aspartate Amino Transferase 21 U/L (14-36); Bilirubin,Total 0.3 mg/dl (0.2-1.3); Blood Urea Nitrogen 14 mg/dl (7-17); Calcium 9.4 mg/dl (8.4-10.2); Carbon Dioxide 28 mmol/L (22.0-30.0); Chloride 105 mmol/L (98-107); Creatinine Clearance Estimated 78 mL/min (50-200); Estimated Glomerular Filt Rate 86 ml/min (>60); GFR (African American) 104 ML/MIN (>60); Globulin 3.2 g/dL (1.3-3.2); Glucose 100 mg/dl (74-100); Potassium 4.1 mmoL/L (3.5-5.1); Sodium 142 mmol/L (136-145); Total Protein,Serum 7.7 g/dl (6.3-8.2)
[2023-03-14 15:07] LABS: Hematocrit 38.1 % (37.0-47.0); Hemoglobin 12.4 g/dL (12.2-16.2); Mean Corpuscular HGB Conc 32.5 g/dL (31.8-35.4); Mean Corpuscular Hemoglobin 27.7 pg (27.0-31.2); Platelet Count 334 K/mm3 (142-424); Red Blood Count 4.48 M/mm3 (4.20-5.40); Red Cell Distribution Width 13.9 % (11.5-17.5)
[2023-03-14 15:08] LABS: Basophils % 0.3 % (0.1-2.0); Eosinophils % 1.4 % (0.1-12.0); Lymphocytes # 2.4 K/mm3 (0.7-4.5); Lymphocytes % 31.2 % (10-50); Mean Platelet Volume 10.5 fl (7.4-10.4); Monocytes # 0.3 K/mm3 (0.1-1.0); Monocytes % 4.4 % (1.7-9.3); Neutrophils # 4.8 K/mm3 (1.8-7.8); Neutrophils % 62.4 % (37.0-80.0)
[2023-03-14 15:09] LABS: Eosinophils # 0.1 K/mm3 (0.0-0.4); White Blood Count 7.8 K/mm3 (4.8-10.8)
--- NOTE | 2023-03-14 16:02 | PC.NURSE ---
Rounded on patient; patient reporting increased pain. MD notified and stated she will go see patient.
[2023-03-14 16:36] LABS: Lactic Acid 1.5 mmol/L (0.7-2.1)
--- NOTE | 2023-03-14 17:13 | PC.NURSE ---
RADIOLOGY NOTIFIED OF TRANSVAGINAL U/S
--- NOTE | 2023-03-14 18:16 | PC.NURSE ---
DR DE JESUS AT BEDSIDE TO UPDATE PT
--- NOTE | 2023-03-14 18:31 | PC.NURSE ---
Called Dietary for tray (PO challenge)
--- NOTE | 2023-03-14 19:01 | PC.NURSE ---
Reported handed off to metal caster
== END 2023-03-14 19:04 | disposition home or self-care (01) ==
PROVIDERS: Emergency Medicine; Emergency Provider Emergency Medicine; PCP Emergency Medicine
DX: R10.9 Unspecified abdominal pain (principal); R11.2 Nausea with vomiting, unspecified; R19.7 Diarrhea, unspecified; R30.0 Dysuria; J45.20 Mild intermittent asthma, uncomplicated; I20.9 Angina pectoris, unspecified
CPT/HCPCS: 74177; 80053; 81001; 83605; 85025; 96374; 96375; 96376; 99285; J2405; Q9967

== ENCOUNTER 2023-03-26 14:34 | Emergency (ER) | payer MEDICAID, SELFPAY ==
[2023-03-26 14:35] VITALS: BP 112/68; PULSE 79; RESP 16; TEMP 36.9; O2SAT 98; BMI 40.2
[2023-03-26 14:41] VITALS: BP 112/68; PULSE 81; O2SAT 97
--- NOTE | 2023-03-26 14:57 | CT_ITS ---
FINAL REPORT TECHNIQUE: Axial CT images were performed from the lung apices through the upper abdomen. Coronal reformats were submitted. This study was performed with techniques to keep radiation doses as low as reasonably achievable (ALARA). Individualized dose reduction techniques using automated exposure control or adjustment of mA and/or kV according to the patient's size were employed. CLINICAL HISTORY: concern for L rib fractures Patient fell against bed rail yesterday injuring left lateral and left posterior ribs she stated. FINDINGS: There is no axillary adenopathy. There is no hilar or mediastinal mass or adenopathy. Heart size is normal. There is no pericardial or pleural effusion. Limited images of the upper abdomen are unremarkable. No suspicious infiltrate or nodule is identified on lung window images. No evidence of a rib fracture or pneumothorax is seen. IMPRESSION: No acute process. Reviewed, Interpreted and Dictated by Marty Cunha III, MD Transcribed by Dana Oconnell Authenticated and [facility]
[2023-03-26 15:00] VITALS: BP 100/64; PULSE 82; O2SAT 98
--- NOTE | 2023-03-26 15:02 | HMH.EDGENADL ---
Discharge Plan Disposition Patient Disposition: Still a Patient Condition: Good Prescriptions Prescriptions: New methocarbamol 750 mg tablet 1,500 mg PO TID 5 Days Qty: 30 0RF ondansetron 4 mg tablet,disintegrating 4 mg PO Q6H PRN (Reason: nausea and vomiting) Qty: 10 0RF lidocaine [Lidoderm] 5 % adhesive patch,medicated 1 patch topical Q24H Qty: 15 0RF Rx Instructions: leave on most painful area for up to 12 hrs No Action albuterol sulfate 90 mcg/actuation HFA aerosol inhaler 2 inh inhalation Q6H PRN (Reason: shortness of breath or wheezing) 90 Days Qty: 8.5 3RF fluticasone propionate [Flonase Allergy Relief] 50 mcg/actuation spray,suspension 2 spray intranasal DAILY 90 Days Qty: 16 3RF Rx Instructions: administer into each nostril azelastine 137 mcg (0.1 %) aerosol,spray 2 spray intranasal HS 90 Days Qty: 30 3RF Rx Instructions: administer into each nostril diclofenac sodium 75 mg tablet,delayed release (DR/EC) 75 mg PO BID gabapentin 600 mg tablet 600 mg PO TID Qty: 90 1RF oxycodone-acetaminophen [Percocet] 7.5-325 mg tablet 1 tab PO TID PRN (Reason: pain) Qty: 90 0RF carbamazepine 100 mg tablet,chewable 100 mg PO TID Qty: 30 3RF meclizine 25 mg tablet 25 mg PO QID PRN (Reason: dizziness or vertigo) Qty: 120 2RF fluconazole [Diflucan] 100 mg tablet 100 mg PO DAILY Qty: 5 0RF levothyroxine 100 mcg tablet See Rx Instructions .ROUTE .COMPLEX Qty: 90 2RF Dose Instruction: TAKE 1 TABLET BY MOUTH EVERY MORNING ON AN EMPTY STOMACH Rx Instructions: TAKE 1 TABLET BY MOUTH EVERY MORNING ON AN EMPTY STOMACH losartan-hydrochlorothiazide 50-12.5 mg tablet See Rx Instructions .ROUTE .COMPLEX Qty: 90 5RF Dose Instruction: TAKE 1 TABLET BY MOUTH ONCE DAILY Rx Instructions: TAKE 1 TABLET BY MOUTH ONCE DAILY nystatin [Nyamyc] 100,000 unit/gram powder See Rx Instructions .ROUTE .COMPLEX Qty: 60 1RF Dose Instruction: USE TWICE DAILY DIRECTED Rx Instructions: USE TWICE DAILY DIRECTED sertraline 50 mg tablet See Rx Instructions .ROUTE .COMPLEX Qty: 135 3RF Dose Instruction: TAKE 1 & 1/2 TABLETS BY MOUTH AT BEDTIME FOR MOOD Rx Instructions: TAKE 1 & 1/2 TABLETS BY MOUTH AT BEDTIME FOR MOOD pantoprazole 40 mg tablet,delayed release (DR/EC) See Rx Instructions .ROUTE .COMPLEX Qty: 90 1RF Dose Instruction: TAKE 1 TABLET BY MOUTH ONCE DAILY Rx Instructions: TAKE 1 TABLET BY MOUTH ONCE DAILY Premarin 0.625 mg tablet See Rx Instructions .ROUTE .COMPLEX Qty: 90 2RF Dose Instruction: TAKE 1 TABLET BY MOUTH DAILY FOR HORMONE REPLACEMENT Rx Instructions: TAKE 1 TABLET BY MOUTH DAILY FOR HORMONE REPLACEMENT montelukast 10 mg tablet See Rx Instructions .ROUTE .COMPLEX Qty: 90 2RF Dose Instruction: TAKE 1 TABLET BY MOUTH AT BEDTIME FOR ALLERGY SYMPTOMS Rx Instructions: TAKE 1 TABLET BY MOUTH AT BEDTIME FOR ALLERGY SYMPTOMS topiramate 100 mg tablet See Rx Instructions .ROUTE .COMPLEX Qty: 90 0RF Dose Instruction: TAKE 1 TABLET BY MOUTH ONCE DAILY Rx Instructions: TAKE 1 TABLET BY MOUTH ONCE DAILY atorvastatin 80 mg tablet 80 mg PO HS Qty: 90 3RF cetirizine 10 mg tablet See Rx Instructions .ROUTE .COMPLEX Qty: 30 2RF Dose Instruction: TAKE 1 TABLET BY MOUTH EVERY DAY Rx Instructions: TAKE 1 TABLET BY MOUTH EVERY DAY hydroxyzine HCl 50 mg tablet See Rx Instructions .ROUTE .COMPLEX Qty: 90 0RF Dose Instruction: TAKE 1 TABLET BY MOUTH THREE TIMES DAILY NEEDED FOR ITCHING Rx Instructions: TAKE 1 TABLET BY MOUTH THREE TIMES DAILY NEEDED FOR ITCHING trazodone 100 mg tablet See Rx Instructions .ROUTE .COMPLEX Qty: 90 0RF Dose Instruction: TAKE 1 TABLET BY MOUTH AT BEDTIME Rx Instructions: TAKE 1 TABLET BY MOUTH AT BEDTIME spironolactone 50 mg
--- NOTE | 2023-03-26 15:15 | PC.NURSE ---
V/O from to change Zofran 4mg IV to Zofran 4mg ODT.
--- NOTE | 2023-03-26 15:34 | PC.NURSE ---
Rounded on patient; assisted patient into bed. pillow provided and lights dimmed per patient's request. Call gaytan within reach
[2023-03-26 16:00] VITALS: BP 123/57; PULSE 70; O2SAT 97
--- NOTE | 2023-03-26 16:10 | PC.NURSE ---
Rounded on patient; call gaytan within reach of patient
[2023-03-26 16:34] VITALS: BP 111/69; PULSE 70; RESP 16; TEMP 36.9; O2SAT 96
== END 2023-03-26 16:40 | disposition still patient (30) ==
PROVIDERS: Emergency Provider Emergency Medicine; PCP Emergency Medicine
DX: R07.81 Pleurodynia (principal); S20.212A Contusion of left front wall of thorax, initial encounter; J45.20 Mild intermittent asthma, uncomplicated; I20.9 Angina pectoris, unspecified; I65.29 Occlusion and stenosis of unspecified carotid artery; W01.0XXA Fall on same level from slipping, tripping and stumbling without subsequent striking against object, initial encounter
CPT/HCPCS: 71250; 96372; 96374; 99284

== ENCOUNTER → 2023-04-11 16:29 | Outpatient (CLI) | payer MEDICAID, SELFPAY ==
[2023-04-11 14:44] LABS: Amphetamine/Metha Screen,Urine Negative ng/ml (<1000)
[2023-04-11 14:45] LABS: Barbiturates Screen,Urine Negative ng/ml (<200)
[2023-04-11 14:46] LABS: Benzodiazepines Screen,Urine Negative ng/ml (<200); Cannabinoid Screen,Urine Negative ng/ml (<50)
[2023-04-11 14:47] LABS: Cocaine Screen,Urine Negative ng/ml (<300)
[2023-04-11 14:48] LABS: Methadone Screen,Urine Negative ng/ml (<300); Opiate Screen,Urine Negative ng/ml (<300)
[2023-04-11 14:49] LABS: Phencyclidine Screen,Urine Negative ng/ml (<25)
== END ==
PROVIDERS: PCP Emergency Medicine; Visit Provider Emergency Medicine
DX: Z79.899 Other long term (current) drug therapy (principal)
CPT/HCPCS: 80305

== ENCOUNTER 2023-05-09 14:29 | Observation (INO) | payer MEDICAID, SELFPAY ==
[2023-05-09] VITALS (9 sets, daily range): BP systolic 105–139; BP diastolic 58–90; PULSE 58–76; RESP 17–20; TEMP 36.5–36.7; O2SAT 9–99; BMI 42.0; BMI 42.1
--- NOTE | 2023-05-09 14:29 | ECG_ITS ---
APPROVED REPORT Exam: Resting ECG HR:59 bpm ECG Measurements Heart Rate 59 AXES NM 366 P 192 QRSd 83 QRS -2 QT 338 T 31 QTc 336 Conclusion ELECTRONIC ATRIAL PACEMAKER vs electrical interference and artifact LOW QRS VOLTAGE IN PRECORDIAL LEADS [QRS DEFLECTION < 1.0 mV IN CHEST LEADS] NONSPECIFIC T-WAVE ABNORMALITY ABNORMAL RHYTHM ECG UNCONFIRMED REPORT Electronically signed by : Don Guan MD 05/10/2023 16:02:13
--- NOTE | 2023-05-09 15:05 | XR_ITS ---
FINAL REPORT CLINICAL HISTORY: Precordial chest pain COMPARISON: 04/05/2022 FINDINGS: A single portable view of the chest was obtained. The heart size and pulmonary vascularity are within normal limits. The mediastinum is within normal limits. No acute pulmonary abnormality is identified. The bony thorax is intact. IMPRESSION: No active cardiopulmonary disease. Reviewed, Interpreted and Dictated by Marty Cunha III, MD Transcribed by Shazia Frausto Authenticated and [facility]
--- NOTE | 2023-05-09 15:05 | CT_ITS ---
FINAL REPORT TECHNIQUE: Then section axial CT images of the chest were obtained with contrast. Three-D reformatted images were also obtained.This study was performed with techniques to keep radiation doses as low as reasonably achievable (ALARA). Individualized dose reduction techniques using automated exposure control or adjustment of mA and/or kV according to the patient''s size were employed. CLINICAL HISTORY: Chest pain and shortness of breath, rule out PE COMPARISON: 05/07/2017 FINDINGS: There is no evidence of pulmonary embolism. There is no evidence of thoracic aortic aneurysm or dissection. There is no evidence of mediastinal or hilar mass or adenopathy. Borderline size axillary nodes are stable and likely reactive. There is no evidence of pulmonary mass or suspicious nodule. No localized inflammatory process is seen within the lungs. Limited images of the upper abdomen are unremarkable. Post cholecystectomy. IMPRESSION: No evidence of pulmonary embolism. Reviewed, Interpreted and Dictated by Marty Cunha III, MD Transcribed by Shazia Frausto Authenticated and [facility]
[2023-05-09 15:15] LABS: Basophils % 0.5 % (0.1-2.0); Eosinophils # 0.1 K/mm3 (0.0-0.4); Eosinophils % 1.7 % (0.1-12.0); Hematocrit 41.6 % (37.0-47.0); Hemoglobin 13.3 g/dL (12.2-16.2); Lymphocytes # 2.1 K/mm3 (0.7-4.5); Mean Corpuscular HGB Conc 32.1 g/dL (31.8-35.4); Mean Corpuscular Hemoglobin 27.6 pg (27.0-31.2); Monocytes # 0.3 K/mm3 (0.1-1.0); Monocytes % 4.1 % (1.7-9.3); Neutrophils # 5.1 K/mm3 (1.8-7.8); Neutrophils % 66.7 % (37.0-80.0); Platelet Count 328 K/mm3 (142-424); Red Blood Count 4.84 M/mm3 (4.20-5.40); Red Cell Distribution Width 14.7 % (11.5-17.5); White Blood Count 7.7 K/mm3 (4.8-10.8)
[2023-05-09 15:24] LABS: Chloride 102 mmol/L (98-107); Sodium 141 mmol/L (136-145)
--- NOTE | 2023-05-09 15:24 | PC.NURSE ---
pt given warm blanket and pillow for comfort. no other needs at this time.
[2023-05-09 15:25] LABS: Potassium 3.9 mmoL/L (3.5-5.1)
[2023-05-09 15:27] LABS: Alanine Aminotransferase 20 U/L (12-78); Albumin Level 4.1 g/dl (3.5-5.0); Alkaline Phosphatase 127 U/L (38-126); Anion Gap 12.9 mEq/L (5-15); Aspartate Amino Transferase 27 U/L (14-36); Bilirubin,Direct 0.3 mg/dl (0.0-0.4); Bilirubin,Total 0.3 mg/dl (0.2-1.3); Blood Urea Nitrogen 16 mg/dl (7-17); Carbon Dioxide 30 mmol/L (22.0-30.0); Creatinine Clearance Estimated 61 mL/min (50-200); Estimated Glomerular Filt Rate 64 ml/min (>60); GFR (African American) 78 ML/MIN (>60); Total Protein,Serum 7.7 g/dl (6.3-8.2)
[2023-05-09 15:28] LABS: Calcium 9.9 mg/dl (8.4-10.2); Glucose 128 mg/dl (74-100)
--- NOTE | 2023-05-09 15:29 | HMH.EDGENADL ---
Discharge Plan Disposition Patient Disposition: Admitted Condition: Good Clinical Impressions Clinical Impression: Chest pain, Shortness of breath Discharge ED Provider: Shruti Alston General Adult HPI General Chief complaint: Shortness of Breath/Dyspnea Stated complaint: Arrhythmia Time Seen by Provider: 05/09/23 15:03 Mode of Arrival: Ambulatory Source of Information: Patient Limitations: No Limitations Description of Symptoms (Recalled from ER Triage Doc. by RN): 58 yo F sent over from dr witt office for further workup. pt reports she went to see kaia calero for pressure in chest, and shortness of air. pt reports symptoms began saturday. pt does not wear home O2. pt does have heart stents. History of Present Illness HPI narrative: This patient is a 58-year-old female sent over from cardiology office for evaluation with concern for chest pain and shortness of breath. Patient reports that her symptoms started on Saturday. She states that she was experiencing congestion, cough, chest tightness like something is squeezing around her chest, shortness of breath, lightheadedness, and swelling of her feet and ankles. She initially went to her PCP, who sent her over to cardiology. She states that they are, they told her she needed to come to be admitted for a heart cath tomorrow. She denies any fevers, abdominal pain, nausea, vomiting, changes in bowel movements, rashes, or swelling. She still is experiencing substernal chest tightness at this time. Per cardiology clinic, they are concerned that she has very high risk chest pain without recent heart cath. Related Data Home Medications Medication Instructions Recorded Confirmed aspirin 81 mg tablet,delayed 81 mg PO DAILY Blood thinner 06/01/20 05/09/23 release cholecalciferol (vitamin D3) 25 25 mcg PO DAILY Supplement 03/20/21 05/09/23 mcg (1,000 unit) capsule atorvastatin 80 mg tablet 80 mg PO HS cholesterol 05/09/23 05/09/23 azelastine 137 mcg (0.1 %) nasal 2 spray intranasal HS asthma 05/09/23 05/09/23 spray aerosol cetirizine 10 mg tablet See Rx Instructions .Route 05/09/23 05/09/23 .COMPLEX depression conjugated estrogens 0.625 mg See Rx Instructions .Route 05/09/23 05/09/23 tablet (Premarin) .COMPLEX hormone replacement fluticasone propionate 50 2 spray intranasal DAILY allergies 05/09/23 05/09/23 mcg/actuation nasal spray,suspension (Flonase Allergy Relief) gabapentin 600 mg tablet 600 mg PO TID pain 05/09/23 05/09/23 hydroxyzine HCl 50 mg tablet See Rx Instructions .Route 05/09/23 05/09/23 .COMPLEX itchiness levothyroxine 100 mcg tablet See Rx Instructions .Route 05/09/23 05/09/23 .COMPLEX hypothyroid losartan 50 mg-hydrochlorothiazide See Rx Instructions .Route 05/09/23 05/09/23 12.5 mg tablet .COMPLEX blood pressure metoprolol succinate 25 mg See Rx Instructions .Route 05/09/23 05/09/23 tablet,extended release 24 hr .COMPLEX heart rate mirabegron 50 mg tablet,extended See Rx Instructions .Route 05/09/23 05/09/23 release 24 hr (Myrbetriq) .COMPLEX bladder montelukast 10 mg tablet See Rx Instructions .Route 05/09/23 05/09/23 .COMPLEX allergies nystatin 100,000 unit/gram topical See Rx Instructions .Route 05/09/23 05/09/23 powder ([facility]) .COMPLEX Skin Condition pantoprazole 40 mg tablet,delayed See Rx Instructions .Route 05/09/23 05/09/23 release .COMPLEX gerd ranolazine 500 mg tablet,extended See Rx Instructions .Route 05/09/23 05/09/23 release,12 hr .COMPLEX angina sertraline 50 mg tablet See Rx Instructions .Route 05/09/23 05/09/23 .COMPLEX depression spironolactone 50 mg tablet See Rx Instructions .Route 05/09/23 05/09/23 .COMPLEX diuretic topiramate 100 mg tablet See Rx Instructions .Route 05/09/23 05/09/23 .COMPLEX migraines trazodone 100 mg tablet See Rx Instructions .Route 05/09/23 05/09/23 .COMPLEX sleep Previous Rx's Medication Instructions Recorded albuterol sulfate 90 mcg/actuation 2 inh inhalation Q
[2023-05-09 15:36] LABS: NT Pro Brain Natriuretic Pep. 32.8 pg/mL (0-125)
[2023-05-09 15:41] LABS: Troponin I < 0.01 ng/ml (0.00-0.034)
--- NOTE | 2023-05-09 16:33 | PC.NURSE ---
HOUSE CALLED FOR ADMISSION
--- NOTE | 2023-05-09 16:41 | PC.NURSE ---
report called to elver zavala on second floor
--- NOTE | 2023-05-09 18:02 | PC.NURSE ---
PT GOING UP FOR ADMISSION
--- NOTE | 2023-05-09 18:21 | EXP.HP ---
History of Present Illness *Admission Date: 05/09/23 *Reason for visit:: Chief complaint: Chest pain *History of present illness: Patient is a 58-year-old female who presents to [facility] emergency department at the request of her cardiology PA for evaluation of chest pain that started on Saturday. She reports that she went to see her PCP and he referred her to the packaging inspector. She was evaluated by the packaging inspector today and was sent to the ED for evaluation with her past medical history of coronary artery disease and previous stent deployment. Her past medical history significant for hypertension, coronary disease with previous intervention, hypothyroidism, BMI 42 and chronic pain syndrome chronically on opioid therapy. She reports on Saturday experiencing chest pain characterized as pressure and similar to previous experiences leading up to heart cath. She reports associated dyspnea with exertion not improved with home medications. She denied associated confusion or vertigo. She has experienced no dysarthria or sudden loss of motor or sensory function. In the ED her room air oxygenation was 96% with controlled blood pressure and heart rate. Her initial troponin came back negative and a CTA of the chest identified no PE and lungs without acute findings. Cardiology was consulted out of the ED and they recommended admission for left heart cath in the morning. [facility] Medical History (Updated 05/09/23 @ 18:29 by Konrad Pathak MD) Abnormal cardiovascular stress test Allergic rhinitis Asthma Atypical angina Chronic cough Coronary artery disease Dizziness Dyspnea Dyspnea on exertion History of smoking 30 or more pack years Memory loss Mild intermittent asthma Nausea [id number] syndrome manifesting as chronic dyspnea Screening for lung cancer Stenosis of carotid artery Surgical History History of ankle surgery History of arthroscopic knee surgery History of cardiac cath History of colonoscopy History of coronary artery stent placement History of hysterectomy Hx of cholecystectomy Family History Other AAA (abdominal aortic aneurysm) Cancer Coronary artery disease Social History Smoking Status: Former smoker pack-years: 30 second hand exposure: No alcohol intake: never substance use type: denies use current occupational status: disabled Travel in the last 8 weeks: None household members: none housing: house current occupational exposures/hazards: No caffeine: Yes Review of Systems Review of Systems Review of systems:: pertinent systems reviewed and negative unless documented below Meds Home Medications and Allergies Home Medications Medication Instructions Recorded Confirmed Type aspirin 81 mg tablet,delayed 81 mg PO DAILY Blood thinner 06/01/20 05/09/23 History release cholecalciferol (vitamin D3) 25 25 mcg PO DAILY Supplement 03/20/21 05/09/23 History mcg (1,000 unit) capsule albuterol sulfate 90 mcg/actuation 2 inh inhalation Q6H PRN shortness 05/22/22 05/09/23 Rx aerosol inhaler of breath or wheezing 90 days #8.5 grams azelastine 137 mcg (0.1 %) nasal 2 spray intranasal HS 90 days #30 05/22/22 05/09/23 Rx spray aerosol mL meclizine 25 mg tablet 25 mg PO QID PRN dizziness or 07/24/22 05/09/23 Rx vertigo #120 tabs losartan 50 mg-hydrochlorothiazide See Rx Instructions .Route 07/25/22 05/09/23 Rx 12.5 mg tablet .COMPLEX #90 tabs nystatin 100,000 unit/gram topical See Rx Instructions .Route 07/25/22 05/09/23 Rx powder ([facility]) .COMPLEX #60 grams sertraline 50 mg tablet See Rx Instructions .Route 09/24/22 05/09/23 Rx .COMPLEX #135 tabs pantoprazole 40 mg tablet,delayed See Rx Instructions .Route 11/13/22 05/09/23 Rx release .COMPLEX #90 tabs conjugated estrogens 0.625 mg See Rx Instru
--- NOTE | 2023-05-09 19:07 | PC.NURSE ---
Patient admitted today with chest pain. Patient states chest pain is intermittent.
[2023-05-09 19:29] LABS: Troponin I < 0.01 ng/ml (0.00-0.034)
--- NOTE | 2023-05-09 20:38 | PC.NURSE ---
Meds were due on day shift 1829 thats why they were scanned and given late
[2023-05-09 21:47] LABS: Troponin I < 0.01 ng/ml (0.00-0.034)
[2023-05-10] VITALS (20 sets, daily range): BP systolic 92–138; BP diastolic 52–86; PULSE 56–73; RESP 16–18; TEMP 36.3–36.5; O2SAT 93–99; BMI 43.4
--- NOTE | 2023-05-10 03:56 | PC.NURSE ---
patient slept well through the night. npo since midnight for heart cath today. received prn med for chest pain once at beginning of shift. saturating well on room air. iv fluids infusing. no other complaints.
--- NOTE | 2023-05-10 06:00 | ECG_ITS ---
APPROVED REPORT Exam: Resting ECG HR:60 bpm ECG Measurements Heart Rate 60 AXES AR 332 P -87 QRSd 92 QRS 0 QT 419 T 29 QTc 419 Conclusion ELECTRONIC ATRIAL PACEMAKER LOW QRS VOLTAGE IN PRECORDIAL LEADS [QRS DEFLECTION < 1.0 mV IN CHEST LEADS] ABNORMAL RHYTHM ECG UNCONFIRMED REPORT Electronically signed by : Don Guan MD 05/10/2023 15:53:47
[2023-05-10 06:18] LABS: Cholesterol 110 mg/dl (140-200); HDL Cholesterol 22 mg/dl (40-60); Triglycerides 117 mg/dl (30-150); VLDL Cholesterol 23 mg/dL (0-40)
[2023-05-10 06:29] LABS: Direct LDL Cholesterol 63.09 mg/dL (100-129)
--- NOTE | 2023-05-10 06:30 | CA_ITS ---
APPROVED REPORT EXAM: Comprehensive 2D, Doppler, and color-flow Echocardiogram Nail Technician Teacher: Sania Becker, SAVANNA, RVS Ht: 5 ft 5 in Wt: 254lbs BSA: 2.19 BP: 132/80 mmHg Indications: CP, CAD-stents, Chronic dyspnea post covid, PEDRO, smoker, HTN, Obesity 2D Dimensions Aortic Root 3.34 cm LA Volume 72.40 mL Left Atrium 4.18 cm LA Volume Index 32.30 mL/m2 (M/F) 16-34 LVOT 2.04 cm (M/F) 1.5-2.5 M-Mode Dimensions RVDd 1.98 cm (0.9-2.6) LA Diam 4.34 cm (1.9-4.0) LVDd 4.86 cm (3.5-5.7) Ao Diam 3.53 cm (2.0-3.7) LVDs 3.08 cm (3.5-5.7) IVSd 0.87 cm (0.6-1.1) PWd 0.91 cm (0.6-1.1) EF (Teich) 66.30% EPSs 0.20 cm FS 36.60% EDV (Teich) 110.70 mL ESV (Teich) 37.30 mL LV Diastology E Decel Time 243.00 (160-240 msec) E/A Ratio 1.06 MED E' 6.00 (< 7 cm/sec) MED A' 8.00 cm/s E'/MED E' Ratio 16.12 (>14) LAT E' 8.80 (<10 cm/sec) LAT A' 11.60 cm/s E/LAT E' Ratio 10.99 (>14) Aortic Valve LVOT Max 111.00 (70-110 cm/s) LVOT VTI 29.30 cm AoV Peak Stephen. 117.00 (50-130 cm/s) AO Peak GR. 5.50 mmHg AO Mean GR. 2.90 (<5 mmHg) AO VTI 28.30 (18-25 cm) PADMINI (VTI) 3.38 (2.5-4.5 cm2) Mitral Valve MV A Velocity 91.00 (40-130 cm/s) E/A Ratio 1.06 MV Decel. Time 243.00 (160-240 ms) Pulmonary Valve PV Peak Velocity 59.00 (50-150 cm/s) OK End VMAX 161.00 cm/s Tricuspid Valve TR P. Velocity 254.00 cm/s RAP Estimate 10.00 mmHg RVSP 35.80 mmHg Left Ventricle The left ventricle is normal size. The left ventricular systolic function is normal. The left ventricular ejection fraction is within the normal range. There is normal left ventricular wall thickness. There is normal LV segmental wall motion. Diastolic function is indeterminate. LVEF is 60%. Right Ventricle The right ventricle is normal size. The right ventricular systolic function is normal. Atria Left atrium is mildly dilated. The right atrium size is normal. The atrial septum is not well visualized. Aortic Valve The aortic valve opens well. There is no aortic valvular stenosis. No aortic regurgitation is present. Mitral Valve The mitral valve is normal in structure. No evidence of mitral valve stenosis. Mild mitral regurgitation. Tricuspid Valve The tricuspid valve leaflets are thin and pliable. Mild tricuspid regurgitation. RVSP is 26 mmHg + RA pressure. Pulmonic Valve The pulmonary valve is normal in structure. Mild pulmonic regurgitation. Great Vessels The aortic root is normal in size. The ascending aorta is normal in size. The IVC is not well visualized. Pericardium There is no pericardial effusion. Other Information Study Quality: Technically Difficult Conclusion This was a technically difficult study in the setting of poor acoustic windows. Normal biventricular systolic function. Mild LA enlargement. Mild MR, mild TR. Electronically signed by : Radha Valentine, 05/14/2023 17:55:57
--- NOTE | 2023-05-10 07:32 | EXP.PN ---
Subjective *Date: 05/10/23 *Time: 07:32 Interval history: Patient is seen and examined today. I am accompanied by nursing staff. They report that she remains afebrile with stable vital signs and improved heart rates. She is saturating appropriately on room air. She is due for her left heart cath today. Exam Data for Last 24 hours Vital signs and Labs for Last 24 Hours: Temp Pulse Resp BP Pulse Ox O2 Del Method 97.4 F L 63 18 95/61 L 93 L Room Air 05/10/23 04:00 05/10/23 04:00 05/10/23 04:00 05/10/23 04:00 05/10/23 04:00 05/10/23 06:50 Laboratory Results - last 24 hr 05/09/23 14:40: WBC 7.7, RBC 4.84, Hgb 13.3, Hct 41.6, MCV 86.0, MCH 27.6, MCHC 32.1, RDW 14.7, Plt Count 328, MPV 8.0, Neut % (Auto) 66.7, Lymph % (Auto) 27.0, Brooks % (Auto) 4.1, Eos % (Auto) 1.7, Baso % (Auto) 0.5, Neut # (Auto) 5.1, Lymph # (Auto) 2.1, Brooks # (Auto) 0.3, Eos # (Auto) 0.1, Baso # (Auto) 0.0, Sodium 141, Potassium 3.9, Chloride 102, Carbon Dioxide 30, Anion Gap 12.9, BUN 16, Creatinine 0.90, Estimated Creat Clear 61, Estimated GFR 64, Est GFR ( Amer) 78, Glucose 128 H, Calcium 9.9, Total Bilirubin 0.3, Direct Bilirubin 0.3, Conjugated Bilirubin 0.0, Indirect Bilirubin 0.0, Unconjugated Bilirubin 0.0, AST 27, ALT 20, Alkaline Phosphatase 127 H, Troponin I < 0.01, NT-Pro-B Natriuret Pep 32.8, Total Protein 7.7, Albumin 4.1 05/09/23 18:35: Troponin I < 0.01 05/09/23 21:10: Troponin I < 0.01 05/10/23 05:30: Triglycerides 117, Cholesterol 110 L, LDL Cholesterol Direct 63.09 L, VLDL Cholesterol 23, HDL Cholesterol 22 L, Cholesterol/HDL Ratio 5.0 H I & O for Last 24 hours: Intake & Output 05/07/23 05/08/23 05/09/23 05/10/23 23:59 23:59 23:59 23:59 Intake Total 300 / 300 Output Total 0 / 0 Balance 0 / 300 300 / 300 Weight 114.901 kg 118.416 kg Constitutional Constitutional: no acute distress, morbidly obese, chronically ill appearing and cooperative *Routine HEENT Exam Head: Present normocephalic *Routine Neck Exam Neck: Present supple *Routine Respiratory Exam Respiratory: Present rhonchi, normal respiratory effort and symmetric chest movement *Routine Cardiovascular Exam Cardiovascular: Present RRR *Routine Neurological Exam Neurological: Present alert, oriented X3, moving all extremities, vision grossly intact, hearing grossly intact and normal speech Routine Psychiatric Exam Psychiatric: Present normal affect, normal thought process, cooperative, good insight and good judgment Assessment and Plan *Assessment and plan (1) Unstable angina: Status: Acute Category: Medical Code(s): I20.0 - Unstable angina (2) Coronary artery disease: Status: Acute Qualifiers: Coronary Disease-Associated Artery/Lesion type: [place] artery [place] vs. transplanted heart: [place] heart Associated angina: with other forms of angina Qualified Code(s): I25.118 - Atherosclerotic heart disease of [place] coronary artery with other forms of angina pectoris Category: Medical Code(s): I25.10 - Atherosclerotic heart disease of [place] coronary artery without angina pectoris (3) HTN (hypertension): Status: Acute Qualifiers: Hypertension type: unspecified Qualified Code(s): I10 - Essential (primary) hypertension Category: Medical Code(s): I10 - Essential (primary) hypertension (4) COPD (chronic obstructive pulmonary disease): Status: Acute Qualifiers: COPD type: unspecified COPD Qualified Code(s): J44.9 - Chronic obstructive pulmonary disease, unspecified Category: Medical Code(s): J44.9 - Chronic obstructive pulmonary disease, unspecified (5) Hypothyroidism (acquired): Status: Acute Category: Medical Code(s): E03.9 - Hypothyroidism, unspecified (6) BMI greater than 40: Status: Acute Category: Medical Plan 58-year-old female that presents to her engineering drawings checker and then referred to the ED
[2023-05-10 08:33] LABS: Hemoglobin A1C 5.7 % (4.0-6.0)
--- NOTE | 2023-05-10 08:49 | PC.NURSE ---
Current Medications Tawanna Munguia Aspirin (Aspirin 81mg Chewable Tablet) 81 mg PO DAILY EUESBIO Stop: 06/08/23 18:29 Last Admin: 05/09/23 20:01 Dose: 81 mg Atorvastatin Calcium (Atorvastatin 40mg Tablet) 40 mg PO HS EUSEBIO Stop: 06/08/23 20:59 Last Admin: 05/09/23 20:02 Dose: 40 mg Diphenhydramine HCl (Diphenhydramine 50mg/Ml Vial) 50 mg IV ONCE ONE Stop: 05/10/23 08:45 Enoxaparin Sodium (Enoxaparin 40mg/0.4ml Syringe) 40 mg SQ BID EUSEBIO Stop: 06/09/23 08:59 Gabapentin (Gabapentin 600mg Tablet) 600 mg PO TID EUSEBIO Stop: 06/08/23 20:59 Last Admin: 05/09/23 20:02 Dose: 600 mg Hydrochlorothiazide (Hydrochlorothiazide 12.5mg Capsule) 12.5 mg PO DAILY EUSEBIO Stop: 06/08/23 18:29 Last Admin: 05/09/23 20:02 Dose: 12.5 mg Sodium Chloride (Sod Chlor 0.9% 1000ml Bag) 1,000 mls @ 50 mls/hr IV .Q20H EUSEBIO Stop: 06/08/23 18:14 Last Admin: 05/09/23 20:04 Dose: 50 mls/hr Irbesartan (Irbesartan 75mg Tablet) 75 mg PO DAILY EUSEBIO Stop: 06/08/23 18:29 Last Admin: 05/09/23 20:01 Dose: 75 mg Levothyroxine Sodium (Levothyroxine 100mcg (0.1mg) Tab) 100 mcg PO DAILYDM EUSEBIO Stop: 06/09/23 06:59 Last Admin: 05/10/23 06:08 Dose: Not Given Metoprolol Succinate (Metoprolol Succinate Xl 25mg Tablet) 25 mg PO DAILY EUSEBIO Stop: 06/08/23 18:29 Last Admin: 05/09/23 20:03 Dose: 25 mg Morphine Sulfate (Morphine 2mg/Ml Syringe) 2 mg IV Q4HP PRN PRN Reason: Severe Pain (7-10) Stop: 06/09/23 07:48 Last Admin: 05/10/23 07:52 Dose: 2 mg Nitroglycerin (Nitroglycerin 0.4mg Sl Tablet) 0.4 mg SL Q5MINP PRN PRN Reason: Chest Pain Stop: 06/08/23 18:15 Ondansetron HCl (Ondansetron 4mg/2ml Vial) 4 mg IV Q8HP PRN PRN Reason: Nausea Stop: 06/08/23 18:10 Last Admin: 05/09/23 20:03 Dose: 4 mg Oxycodone HCl (Oxycodone 5mg Immediate Release Tablet) 7.5 mg PO TID EUSEBIO Stop: 06/08/23 20:59 Last Admin: 05/09/23 20:32 Dose: Not Given Pantoprazole Sodium (Pantoprazole 40mg Tablet) 40 mg PO DAILY EUSEBIO Stop: 06/08/23 18:29 Last Admin: 05/09/23 20:02 Dose: 40 mg Ranolazine (Ranolazine 500mg Er Tablet) 500 mg PO BID [facility] Stop: 06/08/23 20:59 Last Admin: 05/09/23 20:18 Dose: 500 mg Sertraline HCl (Sertraline 50mg Tablet) 50 mg PO DAILY [facility] Stop: 06/08/23 18:29 Last Admin: 05/09/23 20:03 Dose: 50 mg Sodium Chloride (Sodium Chloride 0.9% 10ml Flush Syringe) 10 ml IV NEEDED PRN PRN Reason: Maintain IV Site Stop: 06/08/23 18:10 Spironolactone (Spironolactone 25mg Tablet) 50 mg PO DAILY [facility] Stop: 06/08/23 18:29 Last Admin: 05/09/23 20:02 Dose: 50 mg
--- NOTE | 2023-05-10 08:57 | EXP.CARD.CON ---
History of Present Illness History of Present Illness Consult date: 05/10/23 Requesting physician: Konrad Pathak Consult reason: chest pain Chief complaint: chest pain History of present illness: 58-year-old female who presents to [facility] emergency department at the request of her cardiology PA for evaluation of chest pain that started on Saturday. She reports that she went to see her PCP and he referred her to the field operations manager. She was evaluated by the field operations manager today and was sent to the ED for evaluation with her past medical history of coronary artery disease and previous stent deployment. Her past medical history significant for hypertension, coronary disease with previous intervention, hypothyroidism, BMI 42 and chronic pain syndrome chronically on opioid therapy. She reports on Saturday experiencing chest pain characterized as pressure and similar to previous experiences leading up to heart cath. She reports associated dyspnea with exertion not improved with home medications. She denied associated confusion or vertigo. She has experienced no dysarthria or sudden loss of motor or sensory function. In the ED her room air oxygenation was 96% with controlled blood pressure and heart rate. Her initial troponin came back negative and a CTA of the chest identified no PE and lungs without acute findings. Cardiology was consulted out of the ED and they recommended admission for left heart cath in the morning. [facility] Disclaimer: The information contained in this section may have been updated after the patient was seen, as this information can be updated by other users. 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 Screening for lung cancer Stenosis of carotid artery Surgical History History of ankle surgery History of arthroscopic knee surgery History of cardiac cath History of colonoscopy History of coronary artery stent placement History of hysterectomy Hx of cholecystectomy Family History Other AAA (abdominal aortic aneurysm) Cancer Coronary artery disease Social History Smoking Status: Former smoker pack-years: 30 second hand exposure: No alcohol intake: never substance use type: denies use current occupational status: disabled Travel in the last 8 weeks: None household members: none housing: house current occupational exposures/hazards: No caffeine: Yes Review of Systems Review of Systems Review of systems:: pertinent systems reviewed and negative unless documented below *Cardiovascular Comments: chest pain Exam Data for Last 24 hours Vital signs and Labs for Last 24 Hours: Temp Pulse Resp BP Pulse Ox O2 Del Method 97.5 F L 62 16 138/70 95 Room Air 05/10/23 08:00 05/10/23 08:00 05/10/23 08:00 05/10/23 08:00 05/10/23 08:00 05/10/23 08:00 Laboratory Results - last 24 hr 05/09/23 14:40: WBC 7.7, RBC 4.84, Hgb 13.3, Hct 41.6, MCV 86.0, MCH 27.6, MCHC 32.1, RDW 14.7, Plt Count 328, MPV 8.0, Neut % (Auto) 66.7, Lymph % (Auto) 27.0, [place] % (Auto) 4.1, Eos % (Auto) 1.7, Baso % (Auto) 0.5, Neut # (Auto) 5.1, Lymph # (Auto) 2.1, [place] # (Auto) 0.3, Eos # (Auto) 0.1, Baso # (Auto) 0.0, Sodium 141, Potassium 3.9, Chloride 102, Carbon Dioxide 30, Anion Gap 12.9, BUN 16, Creatinine 0.90, Estimated Creat Clear 61, Estimated GFR 64, Est GFR ( Amer) 78, Glucose 128 H, Calcium 9.9, Total Bilirubin 0.3, Direct Bilirubin 0.3, Conjugated Bilirubin 0.0, Indirect Bilirubin 0.0, Unconjugated Bilirubin
--- NOTE | 2023-05-10 09:06 | IR_ITS ---
APPROVED REPORT PROCEDURES Selective coronary angiogram Drug-eluting stent deployment to the mid LAD INDICATION Acute non-ST elevation myocardial infarction, Coronary disease Informed consent was obtained prior to the procedure. COMPLICATIONS None Estimated Blood Loss: Less than 10 mls TECHNIQUE One percent lidocaine used to anesthetize the right anterior aspect of the wrist. The right radial artery was accessed via the Seldinger technique. A 6 Czech sheath was placed in the right radial artery. 2.5 mg of Verapamil, 800 mcg of nitroglycerin, 1mg Lidocaine and 5000 U Heparin were given through the arterial sheath. The papa catheter was also used to perform left heart catheterization, left ventriculogram and selective coronary angiogram. At the end the diagnostic angiogram therapeutic heparin was administered giving a therapeutic ACT and the guide catheter was placed in the left main artery followed by Choice PT extra-support wire down the LAD. A 2.5 mm x 15 mm [place] frontier stent was deployed at 20 khurram reducing the severe stenosis to 0%. GIGI-3 flow was present before and after the procedure. At the end the procedure the apparatus was removed the sheath was removed and hemostasis was achieved using TR banding patient was transferred to the postop putting in stable condition ANGIOGRAPHIC RESULTS The left main artery Normal The left anterior descending artery Has a stent in the proximal segment which is widely patent free of in-stent restenosis. There is a stent in the mid segment which has a concentric 80% in-stent restenosis. Following stenting the vessel is widely patent with excellent distal flow The circumflex artery Nondominant and normal The right coronary artery Is dominant and has mid vessel eccentric 20 to 30% stenoses with distal 30% stenosis The TORRES ventriculogram reveals Not performed The left ventricular end-diastolic pressure Not measured IMPRESSION Severe mid LAD stenosis Successful stenting of mid LAD severe disease reduced to 0% with 1 drug-eluting stent PLAN 1. Dual antiplatelet therapy 2. Avoidance of tobacco products 3. Risk factor modification 4. Cardiac rehabilitation 5. LDL less than 55 to be achieved with high intensity statin Electronically signed by : Willie Munson MD 05/10/2023 14:41:23
--- NOTE | 2023-05-10 10:13 | HMH.PHAINT1 ---
Pharmacy Intervention Comments: MEDICATION RECONCILIATION COMPLETE USING LIST FROM MOST RECENT MD OFFICE VISIT (05/09/23), EXTERNAL PHARMACY FILL HISTORY, AND PREETI REPORT.
--- NOTE | 2023-05-10 12:04 | PC.NURSE ---
primary tech note: nurse made aware of 1200 vital signs
[2023-05-10 14:55] LABS: CATHL Activated Clotting Time > 400 SEC (74-125)
--- NOTE | 2023-05-10 19:12 | PC.NURSE ---
peripheral angiogram with stent placement. radial band off with no complications dsg in place c/d/i. vss since returning to floor. tolerating room air well.
[2023-05-11] VITALS: BP 122/52; PULSE 68; PULSE 70; RESP 20; TEMP 36.6; O2SAT 94
[2023-05-11 04:00] VITALS: BP 120/52; PULSE 113; PULSE 67; RESP 18; TEMP 36.8; O2SAT 97; BMI 44.0
--- NOTE | 2023-05-11 04:54 | PC.NURSE ---
patient done well through the night. cath site dressing is c/d/i. no signs of hematoma. vitals have been stable. receiving iv fluids.
--- NOTE | 2023-05-11 07:10 | EXP.DC.SUM ---
General Admission date:: 05/09/23 Discharge date: 05/11/23 HPI HPI HPI: Patient is a 58-year-old female who presents to [facility] emergency department at the request of her cardiology PA for evaluation of chest pain that started on Saturday. She reports that she went to see her PCP and he referred her to the jewelry sales. She was evaluated by the jewelry sales today and was sent to the ED for evaluation with her past medical history of coronary artery disease and previous stent deployment. Her past medical history significant for hypertension, coronary disease with previous intervention, hypothyroidism, BMI 42 and chronic pain syndrome chronically on opioid therapy. She reports on Saturday experiencing chest pain characterized as pressure and similar to previous experiences leading up to heart cath. She reports associated dyspnea with exertion not improved with home medications. She denied associated confusion or vertigo. She has experienced no dysarthria or sudden loss of motor or sensory function. In the ED her room air oxygenation was 96% with controlled blood pressure and heart rate. Her initial troponin came back negative and a CTA of the chest identified no PE and lungs without acute findings. Cardiology was consulted out of the ED and they recommended admission for left heart cath in the morning. Hospital Course Hospital Course Hospital Course: The patient was admitted to the telemetry unit with cardiology consultation. Problems addressed as follows: Unstable angina Coronary artery disease Left heart cath 2020 with 3 stents Telemetry monitoring Cardiology consultation Echocardiogram pending on discharge Dual antiplatelet therapy on discharge High-dose statin therapy Nitroglycerin therapy as needed Beta-jerome therapy ARB therapy Thiazide diuretic therapy Ranexa therapy Trending troponins ECG with any chest pain Oxygen supplementation Left heart cath 05/10/2023 with stent deployment to LAD Hypertension Routine blood pressure monitoring Beta-jerome therapy ARB therapy Thiazide diuretic therapy Aldosterone antagonist therapy BMI 40/OHS/COPD overlap Pulse oximetry monitoring Oxygen therapy to maintain appropriate oxygen saturations Currently oxygenating appropriately on room air Yaquelin/Kinjal inhalation therapy CTA of chest with no PE or pulmonary disease identified Nutrition education Complicates all aspects of care Hypothyroidism Levothyroxine replacement therapy Chronic pain syndrome Chronic osteoarthritis Chronic opioid therapy continue with home regimen Fall precautions The patient underwent left heart cath with stent deployment. She identified improvement and inquired about discharge home. I spent 35 minutes in [id number] time with the patient and nursing staff concerning the discharge process. We discussed the admitting diagnoses and hospital course. We discussed identified improvement and the patient's desire to be discharged. We reviewed inpatient studies and imaging. The patient voiced understanding on the importance of follow-up with her primary care provider and jewelry sales. The patient plans to be compliant with the medication regimen prescribed and follow-up appointments. She understands that she can return to the emergency department with any sudden changes or concerns. Exam Data for Last 24 hours Vital signs and Labs for Last 24 Hours: Temp Pulse Resp BP Pulse Ox O2 Del Method 98.3 F 113 H 18 120/52 L 97 Room Air 05/11/23 04:00 05/11/23 04:00 05/11/23 04:00 05/11/23 04:00 05/11/23 04:00 05/11/23 06:49 Laboratory Results - last 24 hr 05/10/23 05:30: Hemoglobin A1c 5.7 05/10/23 14:18: Activated Clotting Time > 400 H* I & O for Last 24 hours: Intake & Output 05/08/23 05/09/23 05/10/23 05/11/23 23:59 23:59 23:59 23:59 Intake Total 540 / 1090 550 / 550 Output Total 0 / 0 900 / 900 800 / 800 Balance 0 / 300 -360 / 190 -250 / -250 Weight 114.901
[2023-05-11 07:21] VITALS: BP 122/72; PULSE 71; RESP 18; TEMP 36.5; O2SAT 97
[2023-05-11 08:00] VITALS: PULSE 80
--- NOTE | 2023-05-11 08:28 | PC.NURSE ---
dc instructions went over with pt. no questions or concerns. pt waiting on ride.
--- NOTE | 2023-05-11 10:28 | HMH.PHACL ---
PHA Associate Professor Of Literature Discharge Med Flanger: Tawanna Munguia has received discharge medication counseling on the following medications: ASPIRIN 81 MG DAILY ATORVASTATIN 80 MG HS LOSARTAN HCTZ DAILY METOPROLOL SUCCINATE 25 MG DAILY BRILINTA 90 MG BID
--- NOTE | 2023-05-13 15:19 | CARE MANAGER ---
Spoke with patient related to hospital discharge. She states she seems to have increased dizziness after taking Brilinta and also has increase shortness of breath. Patient denied other questions or concerns and transferred to cardiology to speak with a nurse. NATHANIEL Perry
== END 2023-05-11 09:20 | disposition home or self-care (01) ==
LOC: ER 16:31 → 2ND 17:05
PROVIDERS: Internal Medicine; Admitting Provider Family Medicine; Emergency Provider Emergency Medicine; Visit Provider Family Medicine
DX: I25.110 Atherosclerotic heart disease of native coronary artery with unstable angina pectoris (principal); I10 Essential (primary) hypertension; J44.9 Chronic obstructive pulmonary disease, unspecified; E03.9 Hypothyroidism, unspecified; I21.4 Non-ST elevation (NSTEMI) myocardial infarction
CPT/HCPCS: 36415; 71045; 71275; 80048; 80061; 80076; 83036; 83880; 84484; 85025; 85347; 92928; 93005; 93306; 93454; 99152; 99285; C1725; C1760; C1769; C1876; C9600; G0378; J1644; J2405; Q9967

== ENCOUNTER → 2023-06-04 13:33 | Outpatient (CLI) | payer MEDICAID, SELFPAY | PROVIDERS: PCP Emergency Medicine; Visit Provider Emergency Medicine | DX: G47.33 Obstructive sleep apnea (adult) (pediatric) (principal) | CPT/HCPCS: G0399 ==

== ENCOUNTER → 2023-07-05 15:32 | Outpatient (CLI) | payer MEDICAID, SELFPAY ==
[2023-07-05 16:01] LABS: Amphetamine/Metha Screen,Urine Negative ng/ml (<1000)
[2023-07-05 16:02] LABS: Barbiturates Screen,Urine Negative ng/ml (<200)
[2023-07-05 16:04] LABS: Benzodiazepines Screen,Urine Negative ng/ml (<200); Cannabinoid Screen,Urine Negative ng/ml (<50)
[2023-07-05 16:05] LABS: Cocaine Screen,Urine Negative ng/ml (<300)
[2023-07-05 16:06] LABS: Methadone Screen,Urine Negative ng/ml (<300); Opiate Screen,Urine Negative ng/ml (<300)
[2023-07-05 16:07] LABS: Phencyclidine Screen,Urine Negative ng/ml (<25)
== END ==
PROVIDERS: PCP Emergency Medicine; Visit Provider Emergency Medicine
DX: R39.9 Unspecified symptoms and signs involving the genitourinary system (principal); Z79.899 Other long term (current) drug therapy
CPT/HCPCS: 80305; 87086

== ENCOUNTER 2023-07-13 10:28 | Emergency (ER) | payer MEDICAID, SELFPAY ==
[2023-07-13 10:29] VITALS: BP 120/70; PULSE 77; RESP 16; TEMP 36.7; O2SAT 98; BMI 43.2
--- NOTE | 2023-07-13 10:39 | HMH.EDGENADL ---
Discharge Plan Disposition Patient Disposition: Home, Self-Care Prescriptions Prescriptions: New cefdinir 300 mg capsule 300 mg PO BID 10 Days Qty: 20 0RF No Action Myrbetriq 50 mg tablet extended release 24 hr 50 mg PO DAILY Qty: 90 0RF albuterol sulfate [Proventil HFA] 90 mcg/actuation HFA aerosol inhaler 2 inh inhalation Q6HP PRN (Reason: shortness of breath or wheezing) Qty: 8.5 1RF cetirizine 10 mg tablet 10 mg PO DAILY Qty: 90 0RF Premarin 0.625 mg tablet 0.625 mg PO DAILY Qty: 90 1RF fluticasone propionate [Flonase Allergy Relief] 50 mcg/actuation spray,suspension 2 spray intranasal DAILY Qty: 16 2RF Rx Instructions: administer into each nostril hydroxyzine HCl 50 mg tablet See Rx Instructions .ROUTE .COMPLEX Qty: 90 0RF Dose Instruction: TAKE 1 TABLET BY MOUTH THREE TIMES DAILY NEEDED FOR ITCHING Rx Instructions: TAKE 1 TABLET BY MOUTH THREE TIMES DAILY NEEDED FOR ITCHING levothyroxine 100 mcg tablet 100 mcg PO DAILYDM Qty: 90 0RF metoprolol succinate 25 mg tablet extended release 24 hr 25 mg PO DAILY Qty: 90 0RF montelukast 10 mg tablet 10 mg PO HS Qty: 90 0RF pantoprazole 40 mg tablet,delayed release (DR/EC) See Rx Instructions .ROUTE .COMPLEX Qty: 90 0RF Dose Instruction: TAKE 1 TABLET BY MOUTH EVERY DAY Rx Instructions: TAKE 1 TABLET BY MOUTH EVERY DAY spironolactone 50 mg tablet 50 mg PO DAILY Qty: 90 0RF topiramate 100 mg tablet See Rx Instructions .ROUTE .COMPLEX Qty: 90 0RF Dose Instruction: TAKE 1 TABLET BY MOUTH EVERY DAY Rx Instructions: TAKE 1 TABLET BY MOUTH EVERY DAY trazodone 100 mg tablet See Rx Instructions .ROUTE .COMPLEX Qty: 90 0RF Dose Instruction: TAKE 1 TABLET BY MOUTH AT BEDTIME Rx Instructions: TAKE 1 TABLET BY MOUTH AT BEDTIME aspirin 81 mg tablet,delayed release (DR/EC) 81 mg PO DAILY Qty: 90 0RF Rx Instructions: TAKE 1 TABLET BY MOUTH AT BEDTIME FOR HEART DISEASE atorvastatin 80 mg tablet 80 mg PO HS Qty: 90 0RF clopidogrel 75 mg tablet 75 mg PO DAILY Qty: 34 5RF oxycodone-acetaminophen [Percocet] 7.5-325 mg tablet 1 tab PO TIDP PRN (Reason: Moderate Pain (Scale Score 5-6)) Qty: 90 0RF cholecalciferol (vitamin D3) 1,000 UNIT capsule 25 mcg PO DAILY gabapentin 600 mg tablet 600 mg PO TID nystatin [Nyamyc] 100,000 unit/gram powder 1 applic topical BID azelastine 137 mcg (0.1 %) aerosol,spray 2 spray intranasal HS Rx Instructions: administer into each nostril losartan-hydrochlorothiazide 50-12.5 mg tablet 1 tab PO DAILY sertraline 50 mg tablet 75 mg PO HS ranolazine 500 mg tablet extended release 12 hr 500 mg PO BID meclizine 25 mg tablet 25 mg PO QIDP PRN (Reason: dizziness or vertigo) ondansetron 4 mg tablet,disintegrating 4 mg PO Q6HP PRN (Reason: Nausea And Vomiting) Referrals Follow up/Referrals: Alexandre Cameron MD [Primary Care Provider] - See instructions Ronit Youngblood DPM [Staff Physician] - See instructions Activity Restrictions/Add. Instructions Additional Instructions/Restrictions: At this time it was felt you are safe to be discharged home. If new or worsening symptoms please do not hesitate to return the emergency department. Please call and schedule an appointment with podiatry as soon as you are able. Please take antibiotics as prescribed. Please follow-up with your family doctor for repeat urinalysis after your antibiotics. Clinical Impressions Clinical Impression: Ingrowing toenail, Paronychia, UTI (urinary tract infection) Instructions Patient Instructions: DI for Skin Abscess Discharge ED Provider: Hiren Vega General Adult HPI General Chief complaint: Skin/Abscess/Foreign Body Stated complaint: possible infection in right big toe Time Seen by Provider: 07/13/23 10:31 History of Present Illness HP
[2023-07-13 11:10] LABS: Microscopic, Urine URINE MICROSCOPIC (MICROSCOPIC)
[2023-07-13 11:11] LABS: Appearance,Urine CLOUDY (Clear); Bilirubin,Urine Negative (Negative); Blood, Urine Negative (Negative); Color,Urine YELLOW (Yellow); Glucose,Urine (UA) Negative (Negative); Ketones,Urine Negative (Negative); Leukocyte Esterase,Urine 2+ (Negative); Nitrate,Urine POSITIVE (Negative); Protein,Urine Negative (Negative)
[2023-07-13 11:27] LABS: RBC,Urine Occasional #/hpf (0-3); WBC,Urine 20-50 #/hpf (0-3)
[2023-07-13 11:28] LABS: Bacteria,Urine 3+ /lpf
[2023-07-13 12:06] VITALS: BP 110/72; PULSE 72; RESP 16; TEMP 36.7; O2SAT 98
--- NOTE | 2023-07-18 10:22 | PC.NURSE ---
pt culture on worklist, notified Dr. Alston, pt on cefdinir. States no changes needed.
== END 2023-07-13 12:06 | disposition home or self-care (01) ==
PROVIDERS: Emergency Provider Emergency Medicine; PCP Emergency Medicine
DX: N39.0 Urinary tract infection, site not specified (principal); B96.29 Other Escherichia coli [E. coli] as the cause of diseases classified elsewhere; L03.031 Cellulitis of right toe; L60.0 Ingrowing nail; J45.909 Unspecified asthma, uncomplicated; I25.119 Atherosclerotic heart disease of native coronary artery with unspecified angina pectoris; Z87.891 Personal history of nicotine dependence; I11.9 Hypertensive heart disease without heart failure
CPT/HCPCS: 10060; 81001; 87086; 99283

== ENCOUNTER → 2023-07-31 23:00 | Outpatient (CLI) | payer MEDICAID, SELFPAY ==
[2023-07-31 18:04] LABS: Adenovirus,PCR Not Detected (NotDetected); Bordetella Pertussis Not Detected (NotDetected); Chlamydophila Pneumoniae, PCR Not Detected (NotDetected); Coronavirus 19, PCR Not Detected (NotDetected); Coronavirus 229E Not Detected (NotDetected); Coronavirus NL63 Not Detected (NotDetected); Coronavirus OC43 Not Detected (NotDetected); Coronovirus HKU1,PCR Not Detected (NotDetected); Human Metapneumovirus Not Detected (NotDetected); Influenza A, PCR Not Detected (NotDetected); Influenza AH1, 2009 Not Detected (NotDetected); Influenza AH1, PCR Not Detected (NotDetected); Influenza AH3,PCR Not Detected (NotDetected); Influenza B, PCR Not Detected (NotDetected); Parainfluenza 1, PCR Not Detected (NotDetected); Parainfluenza 2, PCR Not Detected (NotDetected); Parainfluenza 3, PCR Not Detected (NotDetected); Parainfluenza 4, PCR Not Detected (NotDetected); Respiratory Syncytial Virus Not Detected (NotDetected)
[2023-08-04 12:21] LABS: Mycoplasma Pneumoniae, PCR Not Detected (NotDetected); Rhinovirus/Enterovirus Detected (NotDetected)
== END ==
PROVIDERS: PCP Family Medicine; Visit Provider Family Medicine
DX: R06.02 Shortness of breath (principal); B34.1 Enterovirus infection, unspecified
CPT/HCPCS: 87581; 87632; 87635; 87798

== ENCOUNTER 2023-09-12 12:40 | Outpatient (CLI) | payer MEDICAID, SELFPAY ==
[2023-09-12 13:53] LABS: Phencyclidine Screen,Urine Negative ng/ml (<25)
[2023-09-12 13:58] LABS: Amphetamine/Metha Screen,Urine Negative ng/ml (<1000)
[2023-09-12 13:59] LABS: Barbiturates Screen,Urine Negative ng/ml (<200)
[2023-09-12 14:00] LABS: Cannabinoid Screen,Urine Negative ng/ml (<50)
[2023-09-12 14:02] LABS: Cocaine Screen,Urine Negative ng/ml (<300)
[2023-09-12 14:03] LABS: Methadone Screen,Urine Negative ng/ml (<300)
[2023-09-12 14:04] LABS: Opiate Screen,Urine Negative ng/ml (<300)
[2023-09-12 14:07] LABS: Benzodiazepines Screen,Urine Negative ng/ml (<200)
[2023-09-16 23:07] LABS: Opiates Negative (Cutoff=100); Oxycodone (GC/MS) 536 ng/mL (Cutoff=100); Oxymorphone (GC/MS) 141 ng/mL (Cutoff=100)
== END 2023-09-12 23:59 ==
LOC: LAB.DROPOF 12:40
PROVIDERS: PCP Family Medicine; Visit Provider Family Medicine
DX: N89.8 Other specified noninflammatory disorders of vagina (principal); Z79.899 Other long term (current) drug therapy; B96.29 Other Escherichia coli [E. coli] as the cause of diseases classified elsewhere
CPT/HCPCS: 80307; 80361; 80365; 87086; 87210; G0480

== ENCOUNTER 2023-10-17 18:15 | Outpatient (CLI) | payer MEDICAID, SELFPAY | END 2023-10-17 23:59 | LOC: LAB.DROPOF 18:16 | PROVIDERS: PCP Family Medicine; Visit Provider Family Medicine | DX: B95.62 Methicillin resistant Staphylococcus aureus infection as the cause of diseases classified elsewhere; L98.8 Other specified disorders of the skin and subcutaneous tissue | CPT/HCPCS: 87070; 87205 ==

== ENCOUNTER 2023-11-11 12:21 | Outpatient (CLI) | payer MEDICAID, SELFPAY ==
[2023-11-11 13:14] LABS: Basophils # 0.1 K/mm3 (0-0.2); Basophils % 1.1 % (0.1-2.0); Eosinophils # 0.2 K/mm3 (0.0-0.4); Hematocrit 40.2 % (37.0-47.0); Hemoglobin 13.2 g/dL (12.2-16.2); Lymphocytes # 2.1 K/mm3 (0.7-4.5); Lymphocytes % 27.6 % (10-50); Mean Corpuscular HGB Conc 32.8 g/dL (31.8-35.4); Mean Corpuscular Hemoglobin 29.1 pg (27.0-31.2); Mean Corpuscular Volume 88.8 fl (81-99); Mean Platelet Volume 7.6 fl (7.4-10.4); Monocytes # 0.3 K/mm3 (0.1-1.0); Monocytes % 3.5 % (1.7-9.3); Neutrophils # 4.9 K/mm3 (1.8-7.8); Neutrophils % 65.7 % (37.0-80.0); Platelet Count 295 K/mm3 (142-424); Red Blood Count 4.53 M/mm3 (4.20-5.40); Red Cell Distribution Width 14.7 % (11.5-17.5); White Blood Count 7.5 K/mm3 (4.8-10.8)
[2023-11-11 13:17] LABS: Lactic Acid 0.8 mmol/L (0.7-2.1)
[2023-11-11 13:41] LABS: Chloride 103 mmol/L (98-107)
[2023-11-11 13:42] LABS: Sodium 140 mmol/L (136-145)
[2023-11-11 13:44] LABS: Alanine Aminotransferase 15 U/L (12-78); Alkaline Phosphatase 144 U/L (38-126); Aspartate Amino Transferase 23 U/L (14-36); Bilirubin,Total 0.3 mg/dl (0.2-1.3); Blood Urea Nitrogen 17 mg/dl (7-17); Carbon Dioxide 28 mmol/L (22.0-30.0); Estimated Glomerular Filt Rate 64 ml/min (>60); GFR (African American) 78 ML/MIN (>60)
[2023-11-11 13:45] LABS: Albumin Level 4.3 g/dl (3.5-5.0); Albumin/Globulin Ratio 1.7 (1.1-1.8); Calcium 9.4 mg/dl (8.4-10.2); Globulin 2.6 g/dL (1.3-3.2); Glucose 94 mg/dl (74-100); Total Protein,Serum 6.9 g/dl (6.3-8.2)
[2023-11-11 13:59] LABS: Troponin I < 0.01 ng/ml (0.00-0.034)
[2023-11-12 14:16] LABS: Anti-Centromere B Antibodies <0.2 AI (0.0-0.9); Anti-DNA (DS) Ab Qn <1 IU/mL (0-9); Anti-Jo-1 <0.2 AI (0.0-0.9); Anti-Smith Antibody <0.2 AI (0.0-0.9); Antichromatin Antibodies <0.2 AI (0.0-0.9); Antiscleroderma-70 Antibodies <0.2 AI (0.0-0.9); RNP Antibodies <0.2 AI (0.0-0.9); Sjogren's Anti-SS-A <0.2 AI (0.0-0.9); Sjogren's Anti-SS-B <0.2 AI (0.0-0.9)
== END 2023-11-11 23:59 ==
PROVIDERS: PCP Family Medicine; Visit Provider Family Medicine
DX: R59.0 Localized enlarged lymph nodes; I20.89 Other forms of angina pectoris; R06.09 Other forms of dyspnea; M79.2 Neuralgia and neuritis, unspecified; E66.9 Obesity, unspecified; Z68.41 Body mass index [BMI] 40.0-44.9, adult; Z79.899 Other long term (current) drug therapy
CPT/HCPCS: 36415; 80053; 83605; 83880; 84484; 85025; 86225; 86235; 87040

== ENCOUNTER 2023-11-18 09:31 | Outpatient (CLI) | payer MEDICAID, SELFPAY ==
--- NOTE | 2023-11-18 09:31 | US_ITS ---
FINAL REPORT TECHNIQUE: Limited sonographic images of the neck were obtained. CLINICAL HISTORY: Swollen lymph node in the left neck FINDINGS: ULTRASOUND SOFT TISSUE NECK The bilateral submandibular glands and the bilateral parotid glands are unremarkable. No masses identified. In the left neck, at the area of a palpable nodule, there are several small lymph nodes which do not meet criteria for lymphadenopathy. IMPRESSION: Small lymph nodes at the area of interest do not meet criteria for lymphadenopathy. Reviewed, Interpreted and Dictated by Cece Jimenez MD Transcribed by Amina Zapata Authenticated and [facility]
== END 2023-11-18 23:59 ==
LOC: RAD 09:31
PROVIDERS: PCP Family Medicine; Visit Provider Nurse Practitioner
DX: R59.1 Generalized enlarged lymph nodes (principal)
CPT/HCPCS: 76536

== ENCOUNTER 2024-01-02 08:16 | Day surgery (SDC) | payer MEDICAID, SELFPAY ==
[2024-01-02] VITALS (10 sets, daily range): BP systolic 97–157; BP diastolic 42–75; PULSE 66–82; RESP 15–20; TEMP 36.6; O2SAT 95–100; BMI 43.1
--- NOTE | 2024-01-02 07:31 | IR_ITS ---
APPROVED REPORT Patient Location: Outpatient Maid Cleaning Cooking: ALEXX Guerrier RT (R) PROCEDURES Left heart catheterization Left ventriculogram Selective coronary angiogram INDICATION Accelerated angina pectoris Informed consent was obtained prior to the procedure. COMPLICATIONS NONE Estimated Blood Loss: LESS THAN 10 ML TECHNIQUE One percent lidocaine used to anesthetize the right anterior aspect of the wrist. The right radial artery was accessed via the Seldinger technique. A 6 Vietnamese sheath was placed in the right radial artery. 2.5 mg of Verapamil, 800 mcg of nitroglycerin, 1mg Lidocaine and 5000 U Heparin were given through the arterial sheath. The papa catheter was also used to perform left heart catheterization, left ventriculogram and selective coronary angiogram. At the end of the procedure the sheath was removed good hemostasis was achieved using Traclet band, patient was transferred to the postop holding area in stable condition. ANGIOGRAPHIC RESULTS The left main artery Normal The left anterior descending artery Has proximal 10 to 20% stenosis with a mid vessel stent which is widely patent free of in-stent restenosis with excellent proximal distal transitioning a large first diagonal artery is jailed in the mid LAD stent creating an ostial stenosis of 60-70% accompanied by GIGI-3 flow The circumflex artery Nondominant with smooth proximal and mid vessel 10 to 20% stenoses The right coronary artery Is dominant and has diffuse proximal and mid vessel 30% calcified stenoses The TORRES ventriculogram reveals Normal 65% The left ventricular end-diastolic pressure Moderate to severely elevated at 25 mmHg IMPRESSION Coronary disease as described above Severe angiographic stenosis in the first diagonal artery which is very unlikely to be ischemic. Normal ejection fraction Elevated LVEDP which is the likely etiology for patient's angina PLAN 1. Medical management for coronary artery disease as well as the diagonal artery stenosis 2. Patient's angina is almost certainly stemming from the elevated LVEDP which requires treatment 3. Avoidance of tobacco products 4. Aggressive risk factor modification 5. Recommend sleep study Electronically signed by : Willie Munson MD 01/02/2024 14:29:30
[2024-01-02 08:49] LABS: Basophils # 0.1 K/mm3 (0-0.2); Basophils % 0.8 % (0.1-2.0); Eosinophils # 0.2 K/mm3 (0.0-0.4); Eosinophils % 2.3 % (0.1-12.0); Hemoglobin 12.7 g/dL (12.2-16.2); Lymphocytes # 1.7 K/mm3 (0.7-4.5); Lymphocytes % 23.5 % (10-50); Mean Corpuscular HGB Conc 32.4 g/dL (31.8-35.4); Mean Corpuscular Hemoglobin 28.5 pg (27.0-31.2); Mean Corpuscular Volume 87.8 fl (81-99); Mean Platelet Volume 7.5 fl (7.4-10.4); Monocytes # 0.2 K/mm3 (0.1-1.0); Monocytes % 3.1 % (1.7-9.3); Neutrophils # 5.1 K/mm3 (1.8-7.8); Neutrophils % 70.3 % (37.0-80.0); Platelet Count 296 K/mm3 (142-424); Red Blood Count 4.44 M/mm3 (4.20-5.40); Red Cell Distribution Width 14.9 % (11.5-17.5); White Blood Count 7.2 K/mm3 (4.8-10.8)
[2024-01-02 08:55] LABS: Chloride 102 mmol/L (98-107); Potassium 3.7 mmoL/L (3.5-5.1); Sodium 140 mmol/L (136-145)
[2024-01-02 08:58] LABS: Anion Gap 10.7 mEq/L (5-15); Blood Urea Nitrogen 13 mg/dl (7-17); Calcium 9.9 mg/dl (8.4-10.2); Carbon Dioxide 31 mmol/L (22.0-30.0); Creatinine Clearance Estimated 68 mL/min (50-200); Estimated Glomerular Filt Rate 73 ml/min (>60); GFR (African American) 89 ML/MIN (>60); Glucose 111 mg/dl (74-100)
[2024-01-02] MEDS: LIDOCAINE 1% 10ML MDV 20 ML IJ (12:21)
[2024-01-02] MEDS: HEPARIN 1,000 UNITS/500ML NS (CATH LAB) 3000 UNIT IV (12:21)
[2024-01-02] MEDS: 0.9 % SODIUM CHLORIDE 500 ML 25 ML IV (12:21)
[2024-01-02] MEDS: VERAPAMIL 2.5MG/ML 2ML VIAL 2.5 MG IV (12:22)
[2024-01-02] MEDS: NITROGLYCERIN 800MCG/8ML SYR (CATH LAB) 800 MCG IA (12:22)
[2024-01-02] MEDS: HEPARIN 1,000 UNITS/ML 10ML VIAL (CATH LAB) 10000 UNIT IV (12:22)
[2024-01-02] MEDS: diphenhydrAMINE 50MG/ML VIAL 50 MG IV (12:22)
[2024-01-02] MEDS: MIDAZOLAM HCL 1MG/1ML 5ML VIAL 1 MG IV (12:46)
[2024-01-02] MEDS: FENTANYL 100MCG/2ML VIAL 50 MCG IV (12:46)
[2024-01-02] MEDS: IOPAMIDOL-370 (76%);100ML BOTTLE 60 ML IV (15:12)
== END 2024-01-02 15:26 | disposition home or self-care (01) ==
PROVIDERS: PCP Family Medicine; Visit Provider Internal Medicine
DX: I25.110 Atherosclerotic heart disease of native coronary artery with unstable angina pectoris (principal); E11.9 Type 2 diabetes mellitus without complications; J44.9 Chronic obstructive pulmonary disease, unspecified; I10 Essential (primary) hypertension; Z95.5 Presence of coronary angioplasty implant and graft; E66.01 Morbid (severe) obesity due to excess calories; Z68.41 Body mass index [BMI] 40.0-44.9, adult; R06.02 Shortness of breath; Z79.899 Other long term (current) drug therapy; Z79.84 Long term (current) use of oral hypoglycemic drugs
CPT/HCPCS: 80048; 85025; 93458; 99152; C1725; C1760; C1769; J1644; Q9967

== ENCOUNTER 2024-02-14 10:49 | Outpatient (CLI) | payer MEDICAID, SELFPAY ==
--- NOTE | 2024-02-14 10:52 | XR_ITS ---
FINAL REPORT CLINICAL HISTORY: cough congestion fatigue COMPARISON: 05/09/2023 FINDINGS: No acute pulmonary density is evident. There is no evidence of effusion or other pleural disease. The mediastinum has a normal appearance. The cardiac silhouette is unremarkable. IMPRESSION: Unremarkable chest exam. Reviewed, Interpreted and Dictated by Tete Seth MD Transcribed by Aziza Peña Authenticated and [facility]
== END 2024-02-14 23:59 | disposition home or self-care (01) ==
LOC: RAD 10:50
PROVIDERS: PCP Family Medicine; Visit Provider Family Medicine
DX: J06.9 Acute upper respiratory infection, unspecified (principal)
CPT/HCPCS: 71046

== ENCOUNTER 2024-02-19 13:24 | Emergency (ER) | payer MEDICAID, SELFPAY ==
[2024-02-19] VITALS (11 sets, daily range): BP systolic 109–137; BP diastolic 72–87; PULSE 63–81; RESP 12–22; TEMP 36.6–36.7; O2SAT 95–99; BMI 40.1
--- NOTE | 2024-02-19 13:24 | ECG_ITS ---
APPROVED REPORT Exam: Resting ECG HR:67 bpm ECG Measurements Heart Rate 67 AXES KS 178 P 50 QRSd 95 QRS -4 QT 324 T 43 QTc 340 Conclusion SINUS RHYTHM POSSIBLE ANTERIOR MYOCARDIAL INFARCTION , PROBABLY OLD [30 ms Q WAVE IN V3/V4, OR R < 0.2 mV IN V4] BORDERLINE ECG UNCONFIRMED REPORT Electronically signed by : Hayes Steele, 02/19/2024 15:26:43
--- NOTE | 2024-02-19 13:35 | PC.NURSE ---
PT PROVIDED WARM BLANKET, CALL LIGHT WITHIN REACH. LIGHTS OFF PER PT REQUEST
--- NOTE | 2024-02-19 13:35 | PC.NURSE ---
Pt provided with warm blanket and light turned off per pt request
--- NOTE | 2024-02-19 13:37 | XR_ITS ---
FINAL REPORT CLINICAL HISTORY: CHEST PAIN COMPARISON: 02/14/2024 FINDINGS: No acute pulmonary opacity is present. There is no evidence of effusion or pneumothorax. Mediastinum is unremarkable. Heart size is normal. IMPRESSION: No acute abnormality. Reviewed, Interpreted and Dictated by Tete Seth MD Transcribed by Dana Oconnell Authenticated and [facility]
[2024-02-19 13:47] LABS: Basophils # 0.1 K/mm3 (0-0.2); Basophils % 0.6 % (0.1-2.0); Eosinophils % 0.3 % (0.1-12.0); Hematocrit 42.9 % (37.0-47.0); Hemoglobin 13.8 g/dL (12.2-16.2); Lymphocytes # 1.5 K/mm3 (0.7-4.5); Lymphocytes % 16.4 % (10-50); Mean Corpuscular HGB Conc 32.2 g/dL (31.8-35.4); Mean Corpuscular Hemoglobin 28.6 pg (27.0-31.2); Mean Corpuscular Volume 88.6 fl (81-99); Mean Platelet Volume 7.7 fl (7.4-10.4); Monocytes # 0.3 K/mm3 (0.1-1.0); Monocytes % 2.7 % (1.7-9.3); Neutrophils # 7.3 K/mm3 (1.8-7.8); Platelet Count 346 K/mm3 (142-424); Red Blood Count 4.84 M/mm3 (4.20-5.40); White Blood Count 9.1 K/mm3 (4.8-10.8)
[2024-02-19 13:48] LABS: Chloride 102 mmol/L (98-107); Potassium 4.1 mmoL/L (3.5-5.1); Sodium 139 mmol/L (136-145)
[2024-02-19 13:50] LABS: Blood Urea Nitrogen 15 mg/dl (7-17); Creatinine Clearance Estimated 116 mL/min (50-200); Estimated Glomerular Filt Rate 64 ml/min (>60); GFR (African American) 78 ML/MIN (>60)
[2024-02-19 13:51] LABS: Alanine Aminotransferase 24 U/L (12-78); Albumin Level 4.2 g/dl (3.5-5.0); Albumin/Globulin Ratio 1.2 (1.1-1.8); Alkaline Phosphatase 128 U/L (38-126); Anion Gap 13.1 mEq/L (5-15); Aspartate Amino Transferase 26 U/L (14-36); Bilirubin,Total 0.5 mg/dl (0.2-1.3); Calcium 10.1 mg/dl (8.4-10.2); Carbon Dioxide 28 mmol/L (22.0-30.0); Globulin 3.6 g/dL (1.3-3.2); Glucose 172 mg/dl (74-100); Total Protein,Serum 7.8 g/dl (6.3-8.2)
--- NOTE | 2024-02-19 14:10 | ED_ITS ---
<Statement entered by Vinicius Steele MD - 02/20/24 23:01> I was consulted by the SHAMEKA, and we discussed the complexity of the problems being addressed. I approved the treatment and management plan for this patient's care in the emergency department, thus performing a substantive portion of the medical decision making. Vinicius Steele MD, EUGENIO, FACEP Discharge Plan Disposition Patient Disposition: Home, Self-Care Condition: Fair Prescriptions Prescriptions: No Action albuterol sulfate [Proventil HFA] 90 mcg/actuation HFA aerosol inhaler 2 inh inhalation Q6HP PRN (Reason: shortness of breath or wheezing) Qty: 8.5 1RF fluticasone propionate [Flonase Allergy Relief] 50 mcg/actuation spray,suspension 2 spray intranasal DAILY Qty: 16 2RF Rx Instructions: administer into each nostril aspirin 81 mg tablet,delayed release (DR/EC) 81 mg PO DAILY Qty: 90 0RF Rx Instructions: TAKE 1 TABLET BY MOUTH AT BEDTIME FOR HEART DISEASE metformin 500 mg tablet 500 mg PO BID Qty: 60 3RF Hold Instructions: Doctor's Order cyclobenzaprine 10 mg tablet 10 mg PO DAILY Qty: 30 1RF hydroxyzine HCl 50 mg tablet See Rx Instructions .ROUTE .COMPLEX Qty: 90 0RF Dose Instruction: TAKE 1 TABLET BY MOUTH THREE TIMES DAILY NEEDED FOR ITCHING Rx Instructions: TAKE 1 TABLET BY MOUTH THREE TIMES DAILY NEEDED FOR ITCHING levothyroxine 100 mcg tablet 100 mcg PO DAILYDM Qty: 90 0RF Myrbetriq 50 mg tablet extended release 24 hr See Rx Instructions .ROUTE .COMPLEX Qty: 90 0RF Dose Instruction: TAKE 1 TABLET BY MOUTH ONCE DAILY FOR BLADDER Rx Instructions: TAKE 1 TABLET BY MOUTH ONCE DAILY FOR BLADDER methylprednisolone [Medrol (Pramod)] 4 mg tablets,dose pack See Rx Instructions PO PER PKG DIR Qty: 21 0RF Rx Instructions: PO PER PKG DIR (DME) lancets [FreeStyle Lancets] 28 gauge misc See Rx Instructions .ROUTE .MEDSUPPLY Qty: 100 0RF Rx Instructions: As directed lubiprostone [Amitiza] 24 mcg capsule 24 mcg PO DIRECTED clobetasol 0.05 % ointment 1 applic topical DAILY topiramate 100 mg tablet See Rx Instructions .ROUTE .COMPLEX Qty: 90 2RF Dose Instruction: TAKE 1 TABLET BY MOUTH EVERY DAY Rx Instructions: TAKE 1 TABLET BY MOUTH EVERY DAY hydrochlorothiazide 25 mg tablet 25 mg PO DAILY Qty: 30 3RF (DME) FreeStyle Lite Strips Strip See Rx Instructions .ROUTE .MEDSUPPLY Qty: 10 Rx Instructions: As directed sertraline 50 mg tablet 75 mg PO HS Qty: 90 3RF gabapentin 300 mg capsule 300 mg PO BID Qty: 60 2RF pantoprazole 40 mg tablet,delayed release (DR/EC) See Rx Instructions .ROUTE .COMPLEX Qty: 90 4RF Dose Instruction: TAKE 1 TABLET BY MOUTH EVERY DAY Rx Instructions: TAKE 1 TABLET BY MOUTH EVERY DAY Ozempic 0.25 mg or 0.5 mg (2 mg/3 mL) pen injector 0.5 mg SQ WEEKLY Qty: 3 2RF Rx Instructions: for 4 weeks spironolactone 25 mg tablet 25 mg PO DAILY Qty: 90 3RF nystatin [Nyamyc] 100,000 unit/gram powder 1 applic topical BID Qty: 30 1RF trazodone 100 mg tablet See Rx Instructions .ROUTE .COMPLEX Qty: 90 0RF Hold Instructions: Home Medication placed on hold at Doctor's office Dose Instruction: TAKE 1 TABLET BY MOUTH AT BEDTIME Rx Instructions: TAKE 1 TABLET BY MOUTH AT BEDTIME (DME) blood-glucose meter Kit See Rx Instructions .ROUTE .MEDSUPPLY Qty: 1 0RF Rx Instructions: As directed bid Whatever the insurance will pay for along with the test strips and lancets cetirizine [Allergy Relief (cetirizine)] 10 mg tablet See Rx Instructions .ROUTE .COMPLEX Qty: 90 0RF Dose Instruction: TAKE 1 TABLET BY MOUTH ONCE DAILY FOR ALLERGY SYMPTOMS Rx Instructions: TAKE 1 TABLET BY MOUTH ONCE DAILY FOR ALLERGY SYMPTOMS montelukast 10 mg tablet 10 mg PO HS Qty: 90 0RF metoprolol succinate 25 mg tablet extended release 24 hr 25 mg PO DAILY Qty: 90 0RF Premarin 0.625 mg tablet 0.625 mg PO DAILY Qty: 90 1RF atorvastatin 80 mg tablet See Rx Instructions .ROUTE .COMPLEX Qty: 90 3RF Dose Instruction: TAKE 1 TABLET BY MOUTH AT BEDTIME NIGHTLY FOR CHOLESTEROL Rx Instructions: TAKE 1 TABLET BY MOUTH AT BEDTIME NIGHTLY FOR CHOLESTEROL ranolazine 1,000 mg tablet extended release 12 hr See Rx Instructions .ROUTE .COMPLEX Qty: 180 3RF Dose Instruction: Take 1 tablet by mouth twice daily Rx Instructions: Take 1 tablet by mouth twice daily ipratropium-albuterol 0.5 mg-3 mg(2.5 mg base)/3 mL solution for nebulization 3 ml inhalation QID PRN (Reason: Asthma) Qty: 90 2RF cholecalciferol (vitamin D3) 1,000 UNIT capsule 25 mcg PO DAILY azelastine 137 mcg (0.1 %) aerosol,spray 2 spray intranasal HS Rx Instructions: administer into each nostril ondansetron 4 mg tablet,disintegrating 4 mg PO Q6HP PRN (Reason: Nausea And Vomiting) Referrals Follow up/Referrals: Kassidy Bernard APRN [Primary Care Provider] - See instructions Activity Restrictions/Add. Instructions Additional Instructions/Restrictions: Please contact Dr. Hernandez as discussed and follow-up with them as soon as you are able for possible upper endoscopy. Return to ER for any worsening signs or symptoms as needed. Clinical Impressions Clinical Impression: Abdominal pain, epigastric Discharge ED Provider: Vinicius Steele HPI <SWATI Huang - Last Filed: 02/19/24 17:47> General Chief Complaint: Chest Pain Stated Complaint: CP Time Seen by Provider: 02/19/24 14:10 Mode of Arrival: EMS Source of Information: Patient Limitations: No Limitations Description of Symptoms (Recalled from ER Triage Doc. by RN): Pt c/o midsternal chest pain that radiates to her neck, left shoulder, and down her left arm. States this began suddenly at 1230 while she was eating a grilled cheese sandwhich. States she also has pain with breathing and numbness down her left arm. She has a cardiac hx and has 4x cardiac stents. She has taken 1x ASA 81mg. Per EMS, pt has NSR on the monitor. History of Present Illness HPI narrative: Patient presents for evaluation of chest pain. Patient had unprovoked onset of substernal/epigastric chest pain that radiated to her left arm. She patient states that her pain was initially 9 out of 10 but currently is a 7 out of 10. Patient does a definite cardiac history with history of previous PCI with stents x 4 most recent heart cath was this year by Dr. Munson. Patient said that Dr. Munson told her that she had nonstentable disease after that last 1. Patient does not have routine anginal pain. She denies any associated diaphoresis shortness of breath fever chills hemoptysis hematochezia melena nausea vomiting or diarrhea. Related Data Home Medications Medication Instructions Recorded Confirmed cholecalciferol (vitamin D3) 25 25 mcg PO DAILY Supplement 03/20/21 02/13/24 mcg (1,000 unit) capsule azelastine 137 mcg (0.1 %) nasal 2 spray intranasal HS Allergy 05/09/23 02/13/24 spray aerosol Symptoms ondansetron 4 mg disintegrating 4 mg PO Q6HP PRN Nausea And 05/10/23 02/13/24 tablet Vomiting lubiprostone 24 mcg capsule 24 mcg PO DIRECTED 11/25/23 02/13/24 (Amitiza) clobetasol 0.05 % topical ointment 1 applic topical DAILY 01/06/24 02/13/24 blood sugar diagnostic (FreeStyle #10 ea 02/05/24 02/13/24 Lite Strips) Previous Rx's Medication Instructions Recorded aspirin 81 mg tablet,delayed 81 mg PO DAILY Blood thinner #90 05/21/23 release tabs albuterol sulfate 90 mcg/actuation 2 inh inhalation Q6HP PRN 07/05/23 aerosol inhaler (Proventil HFA) shortness of breath or wheezing #8.5 grams fluticasone propionate 50 2 spray intranasal DAILY allergies 07/05/23 mcg/actuation nasal #16 grams spray,suspension (Flonase Allergy Relief) nystatin 100,000 unit/gram topical 1 applic topical BID Infection #30 07/16/23 powder ([facility]) grams trazodone 100 mg tablet See Rx Instructions .Route 09/27/23 .COMPLEX #90 tabs metformin 500 mg tablet 500 mg PO BID Diabetes #60 tabs 11/11/23 blood-glucose meter #1 ea 11/12/23 cyclobenzaprine 10 mg tablet 10 mg PO DAILY #30 tabs 12/09/23 hydroxyzine HCl 50 mg tablet See Rx Instructions .Route 12/09/23 .COMPLEX #90 tabs levothyroxine 100 mcg tablet 100 mcg PO DAILYDM hypothyroid #90 12/09/23 tabs mirabegron 50 mg tablet,extended See Rx Instructions .Route 12/09/23 release 24 hr (Myrbetriq) .COMPLEX #90 tabs cetirizine 10 mg tablet (Allergy See Rx Instructions .Route 12/20/23 Relief (cetirizine)) .COMPLEX #90 tabs conjugated estrogens 0.625 mg 0.625 mg PO DAILY hormone 12/30/23 tablet (Premarin) replacement #90 tabs metoprolol succinate 25 mg 25 mg PO DAILY HEART RATE #90 tabs 12/30/23 tablet,extended release 24 hr montelukast 10 mg tablet 10 mg PO HS Allergy Symptoms #90 12/30/23 tabs topiramate 100 mg tablet See Rx Instructions .Route 01/06/24 .COMPLEX #90 tabs hydrochlorothiazide 25 mg tablet 25 mg PO DAILY #30 tabs 01/13/24 spironolactone 25 mg tablet 25 mg PO DAILY Fluid #90 tabs 01/28/24 atorvastatin 80 mg tablet See Rx Instructions .Route 02/05/24 .COMPLEX #90 tabs gabapentin 300 mg capsule 300 mg PO BID #60 caps 02/05/24 pantoprazole 40 mg tablet,delayed See Rx Instructions .Route 02/05/24 release .COMPLEX #90 tabs ranolazine 1,000 mg See Rx Instructions .Route 02/05/24 tablet,extended release,12 hr .COMPLEX #180 tabs semaglutide 0.25 mg or 0.5 mg (2 0.5 mg (0.736 mL) SQ WEEKLY 02/05/24 mg/3 mL) subcutaneous pen injector Diabetes #3 mL (Ozempic) sertraline 50 mg tablet 75 mg (1.5 x 50 mg) PO HS MOOD #90 02/05/24 tabs lancets 28 gauge (FreeStyle #100 ea 02/13/24 Lancets) methylprednisolone 4 mg tablets in See Rx Instructions PO PER PKG DIR 02/13/24 a dose pack (Medrol (Pramod)) #21 tabs ipratropium 0.5 mg-albuterol 3 mg 3 ml inhalation QID PRN Asthma #90 02/14/24 (2.5 mg base)/3 mL nebulization mL soln Allergies Allergy/AdvReac Type Severity Reaction Status Date / Time hydromorphone [From Dilaudid] Allergy Severe stop Verified 02/13/24 15:09 breathing amitriptyline Allergy Intermediate Hives Verified 02/13/24 15:09 acetaminophen [From Merrick] Allergy Mild rash Verified 02/13/24 15:09 hydrocodone [From Merrick] Allergy Mild rash Verified 02/13/24 15:09 Sulfa (Sulfonamide AdvReac Verified 02/13/24 15:09 Antibiotics) PFSH <SWATI Huang - Last Filed: 02/19/24 17:47> [facility] Disclaimer: The information contained in this section may have been updated after the patient was seen, as this information can be updated by other users. Medical History (Updated 02/19/24 @ 17:47 by SWATI Huang) Cough Otalgia Ear pain, left Enlarged lymph node in neck Atypical angina Sinusitis Impacted cerumen of left ear Otitis externa of left ear SNHL (sensorineural hearing loss) TMJ (dislocation of temporomandibular joint) Lymphadenopathy Myalgia Nasal congestion Fever Bleeding from ear Viral infection Perforation of tympanic membrane of left ear due to otitis media Acute ear infection UTI (urinary tract infection) Ingrowing toenail Memory loss Dizziness Nausea Stenosis of carotid artery Screening for lung cancer Mild intermittent asthma Dyspnea on exertion Chronic cough Allergic rhinitis History of smoking 30 or more pack years Asthma 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 Dyspnea Abnormal cardiovascular stress test Coronary artery disease Surgical History History of ankle surgery History of hysterectomy History of coronary artery stent placement History of colonoscopy Hx of cholecystectomy History of cardiac cath History of arthroscopic knee surgery Family History Other AAA (abdominal aortic aneurysm) Cancer Coronary artery disease Social History Smoking Status: Former smoker tobacco type: cigarettes packs per day: 1 second hand exposure: No alcohol intake: never substance use type: denies use current occupational status: disabled Travel in the last 8 weeks: None household members: none housing: house current occupational exposures/hazards: No caffeine: Yes <SWATI Huang - Last Filed: 02/19/24 17:47> ROS Obtained: Yes Systems reviewed as appropriate & no additional complaints except as documented Physical Exam <SWATI Huang - Last Filed: 02/19/24 17:47> General General appearance: alert and in no apparent distress Chest Chest inspection: Present normal inspection, symmetric chest wall rise and tenderness (Patient is tender at the xiphoid process/epigastrium) Respiratory Respiratory exam: Present normal lung sounds bilaterally; Absent respiratory distress, wheezes, stridor or accessory muscle use Cardiovascular Cardiovascular exam: Present regular rate, normal rhythm, normal heart sounds, +S1 and +S2 Abdominal Exam Abdominal exam: Present soft, tenderness (Patient has tenderness to palpation in the epigastrium/xiphoid area) and normal bowel sounds; Absent guarding or rebound Extremities Exam Extremities exam: Present normal inspection and full ROM Back Exam Back exam: Present normal inspection, full ROM and tenderness Neurological Exam Neurological exam: Present alert and oriented X3 Psychiatric Psychiatric exam: Present normal affect and normal mood HEART Score <SWATI Huang - Last Filed: 02/19/24 17:47> HEART Score HEART Score assessment performed?: Yes History (anamnesis): Slightly suspicious ECG: Non-specific disturbance Age: 45-65 years Risk factors: Atherosclerosis history Troponin: </= normal limit HEART Score: 4 <Hiren Vega MD - Last Filed: 02/19/24 17:56> HEART Score HEART Score: 4 Critical Care <SWATI Huang - Last Filed: 02/19/24 17:47> Critical Care Time Critical Care Time: No Medical Decision Making <SWATI Huang - Last Filed: 02/19/24 17:47> Medical Records Medical records reviewed: Yes I reviewed the patient's medical records. Anthony Inquiry Pt receiving controlled substance: No Vital Signs Vital Signs: 02/19/24 13:24 02/19/24 13:34 02/19/24 13:40 Temperature 98.0 F Temperature Source Oral Pulse Rate 70 70 Pulse Rate [Right] 70 Respiratory Rate 19 12 Blood Pressure 110/77 Blood Pressure [Right Arm] 119/72 Blood Pressure Mean [Right Arm] 87 Blood Pressure Source [Right Arm] Automatic Cuff 02 Sat by Pulse Oximetry 96 97 Oxygen Delivery Method Room Air Room Air 02/19/24 14:00 02/19/24 14:31 02/19/24 15:01 Temperature Temperature Source Pulse Rate 72 72 75 Pulse Rate [Right] Respiratory Rate 14 22 18 Blood Pressure 122/76 111/74 109/87 L Blood Pressure [Right Arm] Blood Pressure Mean [Right Arm] Blood Pressure Source [Right Arm] 02 Sat by Pulse Oximetry 96 95 96 Oxygen Delivery Method Room Air Room Air Room Air 02/19/24 16:00 02/19/24 16:30 02/19/24 17:01 Temperature Temperature Source Pulse Rate 81 80 72 Pulse Rate [Right] Respiratory Rate 21 14 14 Blood Pressure 113/79 124/81 137/80 Blood Pressure [Right Arm] Blood Pressure Mean [Right Arm] Blood Pressure Source [Right Arm] 02 Sat by Pulse Oximetry 99 95 98 Oxygen Delivery Method Room Air Room Air Room Air 02/19/24 17:30 Temperature Temperature Source Pulse Rate 69 Pulse Rate [Right] Respiratory Rate 12 Blood Pressure 120/77 Blood Pressure [Right Arm] Blood Pressure Mean [Right Arm] Blood Pressure Source [Right Arm] 02 Sat by Pulse Oximetry 97 Oxygen Delivery Method Room Air Lab Data Lab results reviewed: Yes I reviewed the patient's lab results. Labs: Lab Results 02/19/24 13:30: WBC 9.1, RBC 4.84, Hgb 13.8, Hct 42.9, MCV 88.6, MCH 28.6, MCHC 32.2, RDW 15.0, Plt Count 346, MPV 7.7, Neut % (Auto) 80.0, Lymph % (Auto) 16.4, [place] % (Auto) 2.7, Eos % (Auto) 0.3, Baso % (Auto) 0.6, Neut # (Auto) 7.3, Lymph # (Auto) 1.5, [place] # (Auto) 0.3, Eos # (Auto) 0.0, Baso # (Auto) 0.1, D-Dimer 0.37, Sodium 139, Potassium 4.1, Chloride 102, Carbon Dioxide 28, Anion Gap 13.1, BUN 15, Creatinine 0.90, Estimated Creat Clear 116, Estimated GFR 64, Est GFR ( Amer) 78, Glucose 172 H, Calcium 10.1, Magnesium 1.5 L, Total Bilirubin 0.5, AST 26, ALT 24, Alkaline Phosphatase 128 H, Troponin I < 0.01, NT-Pro-B Natriuret Pep 46.2, Total Protein 7.8, Albumin 4.2, Globulin 3.6 H, Albumin/Globulin Ratio 1.2, Lipase 90 02/19/24 15:06: Urine Color Yellow, Urine Appearance Clear, Urine pH 6.5, Ur Specific [place] 1.015, Urine Protein Negative, Urine Glucose (UA) Negative, Urine Ketones Negative, Urine Blood Negative, Urine Nitrate Negative, Urine Bilirubin Negative, Urine Urobilinogen 0.2, Ur Leukocyte Esterase Negative, Urine RBC None, Urine WBC Occasional, Ur Squamous Epith Cells 5-10, Urine Bacteria Trace 02/19/24 16:16: Troponin I < 0.01 02/19/24 13:30 02/19/24 13:30 Response Orders (Tests/Meds): ED MEDICATIONS Discontinued Medications Generic Name Dose Route Start Last Admin Trade Name Freq PRN Reason Stop Dose Admin Belladonna Alkaloids 60 ml 02/19/24 14:37 02/19/24 15:00 Belladonna Alkaloids 60 Ml Ml PO 02/19/24 14:38 60 ml ONCE ONE Administration Lactated Ringer's 1,000 mls @ 999 mls/hr 02/19/24 14:37 02/19/24 15:01 Lactated Ringer's 1000 Ml Bag IV 02/19/24 15:37 999 mls/hr .Q1H1M ONE Administration Iopamidol 75 ml 02/19/24 16:51 02/19/24 16:52 Iopamidol-370 (76%);100ml Bottle IV 02/19/24 16:52 75 ml ONCE ONE Administration Ketorolac Tromethamine 15 mg 02/19/24 14:37 02/19/24 15:00 Ketorolac 30mg/Ml Vial IV 02/19/24 14:38 15 mg ONCE ONE Administration Sodium Chloride 10 ml 02/19/24 16:51 02/19/24 16:52 Sodium Chloride 0.9% 10ml Syr (Rad Only) IV 02/19/24 16:52 10 ml ONCE ONE Administration ORDERS Category Date Time Status CT abdomen pelvis w con Stat Cat Scan 02/19/24 16:02 Completed XR chest portable Stat Exams 02/19/24 13:37 Completed BNP [NT Pro Brain Natriuretic Pep.] Stat Lab 02/19/24 13:30 Completed Complete Blood Count Auto Diff Stat Lab 02/19/24 13:30 Completed Comprehensive Metabolic Panel Stat Lab 02/19/24 13:30 Completed D-Dimer Stat Lab 02/19/24 13:30 Completed Lipase Stat Lab 02/19/24 13:30 Completed Magnesium Stat Lab 02/19/24 13:30 Completed Trop I [Troponin I] Stat Lab 02/19/24 13:30 Completed Troponin I Q3H Lab 02/19/24 16:16 Completed Troponin I Q3H Lab 02/19/24 19:45 Ordered UA [Urinalysis and Microscopic] Stat Lab 02/19/24 15:06 Completed MDM Narrative Medical Decision Narrative: In summary patient is a 58-year-old female who presents to the emergency department for evaluation of chest pain. Patient is dynamically stable upon arrival, afebrile. Physical exam is remarkable for tenderness to palpation in the epigastrium but normal breath sounds normal heart sounds no edema. Differential diagnosis includes ACS versus PE versus esophagitis versus gastroenteritis versus pancreatitis etc. Initial workup will be conducted with hematologic labs plain film chest x-ray twelve-lead EKG. Initial interventions include Motrin Toradol GI cocktail. Initial workup reviewed by me shows that her hematologic labs are nonactionable including negative troponins x 2 and my informal interpretation of her CT scan abdomen pelvis does not show any acute processes.. Upon repeat evaluation patient reports that her epigastric abdominal pain has not particularly resolved however we have ruled out any acute or life-threatening problem thus far that could be the causative agent. Given this patient is appropriate for discharge with close follow-up with both cardiology and her PCP. <Vinicius Steele MD - Last Filed: 02/19/24 14:35> Vital Signs Vital Signs: 02/19/24 13:24 02/19/24 13:34 02/19/24 13:40 Temperature 98.0 F Temperature Source Oral Pulse Rate 70 70 Pulse Rate [Right] 70 Respiratory Rate 19 12 Blood Pressure 110/77 Blood Pressure [Right Arm] 119/72 Blood Pressure Mean [Right Arm] 87 Blood Pressure Source [Right Arm] Automatic Cuff 02 Sat by Pulse Oximetry 96 97 Oxygen Delivery Method Room Air Room Air 02/19/24 14:00 02/19/24 14:31 02/19/24 15:01 Temperature Temperature Source Pulse Rate 72 72 75 Pulse Rate [Right] Respiratory Rate 14 22 18 Blood Pressure 122/76 111/74 109/87 L Blood Pressure [Right Arm] Blood Pressure Mean [Right Arm] Blood Pressure Source [Right Arm] 02 Sat by Pulse Oximetry 96 95 96 Oxygen Delivery Method Room Air Room Air Room Air 02/19/24 16:00 02/19/24 16:30 02/19/24 17:01 Temperature Temperature Source Pulse Rate 81 80 72 Pulse Rate [Right] Respiratory Rate 21 14 14 Blood Pressure 113/79 124/81 137/80 Blood Pressure [Right Arm] Blood Pressure Mean [Right Arm] Blood Pressure Source [Right Arm] 02 Sat by Pulse Oximetry 99 95 98 Oxygen Delivery Method Room Air Room Air Room Air 02/19/24 17:30 Temperature Temperature Source Pulse Rate 69 Pulse Rate [Right] Respiratory Rate 12 Blood Pressure 120/77 Blood Pressure [Right Arm] Blood Pressure Mean [Right Arm] Blood Pressure Source [Right Arm] 02 Sat by Pulse Oximetry 97 Oxygen Delivery Method Room Air Lab Data Labs: Lab Results 02/19/24 13:30: WBC 9.1, RBC 4.84, Hgb 13.8, Hct 42.9, MCV 88.6, MCH 28.6, MCHC 32.2, RDW 15.0, Plt Count 346, MPV 7.7, Neut % (Auto) 80.0, Lymph % (Auto) 16.4, [place] % (Auto) 2.7, Eos % (Auto) 0.3, Baso % (Auto) 0.6, Neut # (Auto) 7.3, Lymph # (Auto) 1.5, [place] # (Auto) 0.3, Eos # (Auto) 0.0, Baso # (Auto) 0.1, D-Dimer 0.37, Sodium 139, Potassium 4.1, Chloride 102, Carbon Dioxide 28, Anion Gap 13.1, BUN 15, Creatinine 0.90, Estimated Creat Clear 116, Estimated GFR 64, Est GFR ( Amer) 78, Glucose 172 H, Calcium 10.1, Magnesium 1.5 L, Total Bilirubin 0.5, AST 26, ALT 24, Alkaline Phosphatase 128 H, Troponin I < 0.01, NT-Pro-B Natriuret Pep 46.2, Total Protein 7.8, Albumin 4.2, Globulin 3.6 H, Albumin/Globulin Ratio 1.2, Lipase 90 02/19/24 15:06: Urine Color Yellow, Urine Appearance Clear, Urine pH 6.5, Ur Specific [place] 1.015, Urine Protein Negative, Urine Glucose (UA) Negative, Urine Ketones Negative, Urine Blood Negative, Urine Nitrate Negative, Urine Bilirubin Negative, Urine Urobilinogen 0.2, Ur Leukocyte Esterase Negative, Urine RBC None, Urine WBC Occasional, Ur Squamous Epith Cells 5-10, Urine Bacteria Trace 02/19/24 16:16: Troponin I < 0.01 Response Orders (Tests/Meds): ED MEDICATIONS Discontinued Medications Generic Name Dose Route Start Last Admin Trade Name Freq PRN Reason Stop Dose Admin Belladonna Alkaloids 60 ml 02/19/24 14:37 02/19/24 15:00 Belladonna Alkaloids 60 Ml Ml PO 02/19/24 14:38 60 ml ONCE ONE Administration Lactated Ringer's 1,000 mls @ 999 mls/hr 02/19/24 14:37 02/19/24 15:01 Lactated Ringer's 1000 Ml Bag IV 02/19/24 15:37 999 mls/hr .Q1H1M ONE Administration Iopamidol 75 ml 02/19/24 16:51 02/19/24 16:52 Iopamidol-370 (76%);100ml Bottle IV 02/19/24 16:52 75 ml ONCE ONE Administration Ketorolac Tromethamine 15 mg 02/19/24 14:37 02/19/24 15:00 Ketorolac 30mg/Ml Vial IV 02/19/24 14:38 15 mg ONCE ONE Administration Sodium Chloride 10 ml 02/19/24 16:51 02/19/24 16:52 Sodium Chloride 0.9% 10ml Syr (Rad Only) IV 02/19/24 16:52 10 ml ONCE ONE Administration ORDERS Category Date Time Status CT abdomen pelvis w con Stat Cat Scan 02/19/24 16:02 Completed XR chest portable Stat Exams 02/19/24 13:37 Completed BNP [NT Pro Brain Natriuretic Pep.] Stat Lab 02/19/24 13:30 Completed Complete Blood Count Auto Diff Stat Lab 02/19/24 13:30 Completed Comprehensive Metabolic Panel Stat Lab 02/19/24 13:30 Completed D-Dimer Stat Lab 02/19/24 13:30 Completed Lipase Stat Lab 02/19/24 13:30 Completed Magnesium Stat Lab 02/19/24 13:30 Completed Trop I [Troponin I] Stat Lab 02/19/24 13:30 Completed Troponin I Q3H Lab 02/19/24 16:16 Completed Troponin I Q3H Lab 02/19/24 19:45 Ordered UA [Urinalysis and Microscopic] Stat Lab 02/19/24 15:06 Completed ECG Data Tracing #1: Attestation: I reviewed this ECG and interpreted as documented below: ECG Narrative: Ventricular rate of 67 normal sinus rhythm no acute ischemic changes noted there is indeterminate axis no significant conduction abnormality <Hiren Vega MD - Last Filed: 02/19/24 17:56> Vital Signs Vital Signs: 02/19/24 13:24 02/19/24 13:34 02/19/24 13:40 Temperature 98.0 F Temperature Source Oral Pulse Rate 70 70 Pulse Rate [Right] 70 Respiratory Rate 19 12 Blood Pressure 110/77 Blood Pressure [Right Arm] 119/72 Blood Pressure Mean [Right Arm] 87 Blood Pressure Source [Right Arm] Automatic Cuff 02 Sat by Pulse Oximetry 96 97 Oxygen Delivery Method Room Air Room Air 02/19/24 14:00 02/19/24 14:31 02/19/24 15:01 Temperature Temperature Source Pulse Rate 72 72 75 Pulse Rate [Right] Respiratory Rate 14 22 18 Blood Pressure 122/76 111/74 109/87 L Blood Pressure [Right Arm] Blood Pressure Mean [Right Arm] Blood Pressure Source [Right Arm] 02 Sat by Pulse Oximetry 96 95 96 Oxygen Delivery Method Room Air Room Air Room Air 02/19/24 16:00 02/19/24 16:30 02/19/24 17:01 Temperature Temperature Source Pulse Rate 81 80 72 Pulse Rate [Right] Respiratory Rate 21 14 14 Blood Pressure 113/79 124/81 137/80 Blood Pressure [Right Arm] Blood Pressure Mean [Right Arm] Blood Pressure Source [Right Arm] 02 Sat by Pulse Oximetry 99 95 98 Oxygen Delivery Method Room Air Room Air Room Air 02/19/24 17:30 Temperature Temperature Source Pulse Rate 69 Pulse Rate [Right] Respiratory Rate 12 Blood Pressure 120/77 Blood Pressure [Right Arm] Blood Pressure Mean [Right Arm] Blood Pressure Source [Right Arm] 02 Sat by Pulse Oximetry 97 Oxygen Delivery Method Room Air Lab Data Labs: Lab Results 02/19/24 13:30: WBC 9.1, RBC 4.84, Hgb 13.8, Hct 42.9, MCV 88.6, MCH 28.6, MCHC 32.2, RDW 15.0, Plt Count 346, MPV 7.7, Neut % (Auto) 80.0, Lymph % (Auto) 16.4, [place] % (Auto) 2.7, Eos % (Auto) 0.3, Baso % (Auto) 0.6, Neut # (Auto) 7.3, Lymph # (Auto) 1.5, [place] # (Auto) 0.3, Eos # (Auto) 0.0, Baso # (Auto) 0.1, D-Dimer 0.37, Sodium 139, Potassium 4.1, Chloride 102, Carbon Dioxide 28, Anion Gap 13.1, BUN 15, Creatinine 0.90, Estimated Creat Clear 116, Estimated GFR 64, Est GFR ( Amer) 78, Glucose 172 H, Calcium 10.1, Magnesium 1.5 L, Total Bilirubin 0.5, AST 26, ALT 24, Alkaline Phosphatase 128 H, Troponin I < 0.01, NT-Pro-B Natriuret Pep 46.2, Total Protein 7.8, Albumin 4.2, Globulin 3.6 H, Albumin/Globulin Ratio 1.2, Lipase 90 02/19/24 15:06: Urine Color Yellow, Urine Appearance Clear, Urine pH 6.5, Ur Specific [place] 1.015, Urine Protein Negative, Urine Glucose (UA) Negative, Urine Ketones Negative, Urine Blood Negative, Urine Nitrate Negative, Urine Bilirubin Negative, Urine Urobilinogen 0.2, Ur Leukocyte Esterase Negative, Urine RBC None, Urine WBC Occasional, Ur Squamous Epith Cells 5-10, Urine Bacteria Trace 02/19/24 16:16: Troponin I < 0.01 Response Orders (Tests/Meds): ED MEDICATIONS Discontinued Medications Generic Name Dose Route Start Last Admin Trade Name Freq PRN Reason Stop Dose Admin Belladonna Alkaloids 60 ml 02/19/24 14:37 02/19/24 15:00 Belladonna Alkaloids 60 Ml Ml PO 02/19/24 14:38 60 ml ONCE ONE Administration Lactated Ringer's 1,000 mls @ 999 mls/hr 02/19/24 14:37 02/19/24 15:01 Lactated Ringer's 1000 Ml Bag IV 02/19/24 15:37 999 mls/hr .Q1H1M ONE Administration Iopamidol 75 ml 02/19/24 16:51 02/19/24 16:52 Iopamidol-370 (76%);100ml Bottle IV 02/19/24 16:52 75 ml ONCE ONE Administration Ketorolac Tromethamine 15 mg 02/19/24 14:37 02/19/24 15:00 Ketorolac 30mg/Ml Vial IV 02/19/24 14:38 15 mg ONCE ONE Administration Sodium Chloride 10 ml 02/19/24 16:51 02/19/24 16:52 Sodium Chloride 0.9% 10ml Syr (Rad Only) IV 02/19/24 16:52 10 ml ONCE ONE Administration ORDERS Category Date Time Status CT abdomen pelvis w con Stat Cat Scan 02/19/24 16:02 Completed XR chest portable Stat Exams 02/19/24 13:37 Completed BNP [NT Pro Brain Natriuretic Pep.] Stat Lab 02/19/24 13:30 Completed Complete Blood Count Auto Diff Stat Lab 02/19/24 13:30 Completed Comprehensive Metabolic Panel Stat Lab 02/19/24 13:30 Completed D-Dimer Stat Lab 02/19/24 13:30 Completed Lipase Stat Lab 02/19/24 13:30 Completed Magnesium Stat Lab 02/19/24 13:30 Completed Trop I [Troponin I] Stat Lab 02/19/24 13:30 Completed Troponin I Q3H Lab 02/19/24 16:16 Completed Troponin I Q3H Lab 02/19/24 19:45 Ordered UA [Urinalysis and Microscopic] Stat Lab 02/19/24 15:06 Completed MDM Narrative Medical Decision Narrative: In summary patient is a 58-year-old female who presents to the emergency department for evaluation of chest pain. Patient is dynamically stable upon arrival, afebrile. Physical exam is remarkable for tenderness to palpation in the epigastrium but normal breath sounds normal heart sounds no edema. Differential diagnosis includes ACS versus PE versus esophagitis versus gastroenteritis versus pancreatitis etc. Initial workup will be conducted with hematologic labs plain film chest x-ray twelve-lead EKG. Initial interventions include Motrin Toradol GI cocktail. Initial workup reviewed by me shows that her hematologic labs are nonactionable including negative troponins x 2 and my informal interpretation of her CT scan abdomen pelvis does not show any acute processes.. Upon repeat evaluation patient reports that her epigastric abdominal pain has not particularly resolved however we have ruled out any acute or life-threatening problem thus far that could be the causative agent. Given this patient is appropriate for discharge with close follow-up with both cardiology and her PCP. Hiren Vega: I evaluated this patient after Don and she states that the GI cocktail did significantly improve her symptoms. She has been eating more times lately because her GERD has become uncontrolled on her pantoprazole. She has a mildly tender epigastrium and her initial cardiac workup is negative. I do not think second troponin is indicated given the nature of this pain and the fact that it is tender and is not currently substernal or radiating to her shoulders currently. Her workup is nonactionable in the ER from an emergency room standpoint and she was encouraged to follow-up with her surgeon Dr. Hernandez on an outpatient basis who will need to evaluate for the utility of upper endoscopy. She was given multiple return precautions and verbalized understanding. I was consulted by the SHAMEKA, and we discussed the complexity of the problems being addressed. I approved the treatment and management plan for this patient's care in the emergency department, thus performing a substantive portion of the medical decision making. Hiren Vega MD
[2024-02-19 14:15] LABS: Troponin I < 0.01 ng/ml (0.00-0.034)
--- NOTE | 2024-02-19 14:16 | PC.NURSE ---
RAD at [facility]
--- NOTE | 2024-02-19 14:19 | PC.NURSE ---
Kyle BROUSSARD at [facility] for pt eval
[2024-02-19 14:50] LABS: Lipase 90 U/L (23-300)
[2024-02-19 14:51] LABS: Magnesium 1.5 mg/dl (1.6-2.3)
[2024-02-19 14:55] LABS: D-Dimer 0.37 ug/mL (0.0-0.5)
[2024-02-19 14:59] LABS: NT Pro Brain Natriuretic Pep. 46.2 pg/mL (0-125)
[2024-02-19] MEDS: KETOROLAC 30MG/ML VIAL 15 MG IV (15:00)
[2024-02-19] MEDS: BELLADONNA ALKALOIDS 60 ML ML PO (15:00)
[2024-02-19] MEDS: LACTATED RINGERS 1000ML 1,000 ML 999 ML IV (15:01)
--- NOTE | 2024-02-19 15:18 | PC.NURSE ---
I accompanied the pt to the bathroom to get a urine sample.
[2024-02-19 15:26] LABS: Microscopic, Urine URINE MICROSCOPIC (MICROSCOPIC)
[2024-02-19 15:28] LABS: Appearance,Urine CLEAR (Clear); Bilirubin,Urine Negative (Negative); Blood, Urine Negative (Negative); Color,Urine YELLOW (Yellow); Glucose,Urine (UA) Negative (Negative); Ketones,Urine Negative (Negative); Leukocyte Esterase,Urine Negative (Negative); Nitrate,Urine Negative (Negative); PH,Urine 6.5 (5.0-8.5); Protein,Urine Negative (Negative); Specific Gravity, Urine 1.015 (1.005-1.030); Urobilinogen,Urine 0.2 EU/dl (0.2)
--- NOTE | 2024-02-19 16:02 | CT_ITS ---
PROCEDURE INFORMATION: Exam: CT Abdomen And Pelvis With Contrast Exam date and time: 02/19/2024 4:49 PM Age: 58 years old Clinical indication: Abdominal pain; Additional info: Gastric abdominal pain TECHNIQUE: Imaging protocol: Computed tomography of the abdomen and pelvis with contrast. Radiation optimization: All CT scans at this facility use at least one of these dose optimization techniques: automated exposure control; mA and/or kV adjustment per patient size (includes targeted exams where dose is matched to clinical indication); or iterative reconstruction. Contrast material: ISOVUE; Contrast volume: 75 ml; Contrast route: IV; COMPARISON: 1. CT ABDOMEN PELVIS W CON 03/14/2023 2:[address] ABDOMEN PELVIS WO CON 06/10/2019 10:[address] ABD PELVIS W/ CONTRAST 05/07/2017 2:02 PM FINDINGS: Tubes, catheters and devices: There is a spinal stimulator in place. Lungs: Scattered areas of bronchial wall thickening which are likely chronic inflammatory. A few areas of subpleural reticulation are noted, nonspecific. Liver: Normal. Gallbladder and biliary ducts: The patient is status post cholecystectomy. There is dilation of the intrahepatic biliary ducts most likely reflecting post cholecystectomy effect. Pancreas: There is fatty replacement of the pancreas. There is fatty replacement of the pancreas. Spleen: There are multiple calcifications in the spleen most likely reflects small granulomas. Adrenal glands: The adrenal glands appear normal. Kidneys and ureters: There are no soft tissue renal masses or hydronephrosis. 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 Intraperitoneal space: Unremarkable. Vasculature: There is atherosclerotic disease of the visualized aorta and its major branch vessels. Lymph nodes: No lymphadenopathy. Urinary bladder: Unremarkable as visualized. Reproductive: The patient has undergone prior hysterectomy. Bones/joints: There is diffuse degenerative disease of the visualized osseous structures. Soft tissues: Laxity of the ventral abdominal wall consistent with diastasis recti. IMPRESSION: No acute inflammatory or obstructive process is identified. Incidental findings are described within the findings section.
[2024-02-19 16:04] LABS: Bacteria,Urine Trace /lpf; WBC,Urine Occasional #/hpf (0-3)
--- NOTE | 2024-02-19 16:46 | PC.NURSE ---
PT gone to CT via wheelchair
[2024-02-19 16:49] LABS: Troponin I < 0.01 ng/ml (0.00-0.034)
[2024-02-19] MEDS: IOPAMIDOL-370 (76%);100ML BOTTLE 75 ML IV (16:52)
[2024-02-19] MEDS: SODIUM CHLORIDE 0.9% 10ML SYR (RAD ONLY) 10 ML IV (16:52)
--- NOTE | 2024-02-19 17:00 | PC.NURSE ---
PT returned from ct
--- NOTE | 2024-02-19 17:58 | PC.NURSE ---
Pt resting in bed. No needs or complaints voiced. Call light remains within reach.
== END 2024-02-19 18:17 | disposition home or self-care (01) ==
PROVIDERS: Physician Assistant; Emergency Provider Student in an Organized Health Care Education/Training Program; PCP Family Medicine
DX: R10.13 Epigastric pain (principal); R07.89 Other chest pain; K21.9 Gastro-esophageal reflux disease without esophagitis; Z86.79 Personal history of other diseases of the circulatory system; Z95.5 Presence of coronary angioplasty implant and graft; Z87.891 Personal history of nicotine dependence
CPT/HCPCS: 71045; 74177; 80053; 81001; 83690; 83735; 83880; 84484; 85025; 85378; 93005; 96361; 96374; 99285; J1885; J7120; Q9967

== ENCOUNTER → 2024-03-10 11:58 | Outpatient (CLI) | payer MEDICAID, SELFPAY | LOC: SL 11:59 | PROVIDERS: PCP Family Medicine; Visit Provider Family Medicine | DX: R53.83 Other fatigue (principal); R40.0 Somnolence; R06.83 Snoring | CPT/HCPCS: G0399 ==

== ENCOUNTER 2024-05-27 10:14 | Outpatient (CLI) | payer MEDICAID, SELFPAY | END 2024-05-27 23:59 | disposition home or self-care (01) | LOC: RT 10:16 | PROVIDERS: PCP Family Medicine; Visit Provider Nurse Practitioner Family | DX: R00.2 Palpitations (principal) | CPT/HCPCS: 93270 ==

== ENCOUNTER 2024-07-20 10:27 | Outpatient (CLI) | payer MEDICAID, SELFPAY | END 2024-07-20 23:59 | disposition home or self-care (01) | LOC: LAB.DROPOF 07-27 10:27 | PROVIDERS: PCP Family Medicine; Visit Provider Family Medicine | DX: Z12.39 Encounter for other screening for malignant neoplasm of breast (principal); R39.9 Unspecified symptoms and signs involving the genitourinary system | CPT/HCPCS: 80053; 80061; 80076; 82043; 82150; 82570; 83036; 83690; 84443; 85007; 85014; 85018; 85048; 85049; 87086; 87389 ==

== ENCOUNTER 2024-07-20 13:13 | Outpatient (CLI) | payer MEDICAID, SELFPAY ==
--- NOTE | 2024-07-20 13:14 | MM_ITS ---
PROCEDURE INFORMATION: Exam: MG Bilateral Screening 3D Mammography Exam date and time: 07/20/2024 1:25 PM Age: 59 years old Clinical indication: Screening examination TECHNIQUE: Imaging protocol: Bilateral Screening tomosynthesis and 2D mammography including computer-aided detection (CAD) when performed. COMPARISON: 1. MG MM DIG MAMM DX UNILAT LT CAD 03/22/2021 1:49 PM 2. MG [facility] 10/25/2020 10:58 AM FINDINGS: MAMMOGRAPHY: Breast composition: There are scattered areas of fibroglandular density. Mass: 0.7 cm bilobed mass in middle third of the right upper outer quadrant Architectural distortion: None. Calcifications: No suspicious calcifications. Asymmetric density: None. Skin thickening: None. Axillary adenopathy: None. IMPRESSION: Patient to be recalled for right breast ultrasound for further evaluation of a right breast mass. ASSESSMENT: BI-RADS Category 0: Incomplete- Need Additional Imaging Evaluation
[2024-07-20 17:56] LABS: MANUAL DIFFERENTIAL MANUAL DIFFERENTIAL (MANUAL DIFF)
[2024-07-20 18:20] LABS: Basophils # 0.1 K/mm3 (0-0.2); Basophils % 0.6 % (0.1-2.0); Eosinophils % 0.3 % (0.1-12.0); Hematocrit 41.6 % (37.0-47.0); Hemoglobin 13.6 g/dL (12.2-16.2); Lymphocytes # 1.6 K/mm3 (0.7-4.5); Mean Corpuscular HGB Conc 32.8 g/dL (31.8-35.4); Mean Corpuscular Hemoglobin 28.5 pg (27.0-31.2); Mean Corpuscular Volume 87.1 fl (81-99); Mean Platelet Volume 8.7 fl (7.4-10.4); Monocytes # 0.3 K/mm3 (0.1-1.0); Monocytes % 3.5 % (1.7-9.3); Neutrophils # 5.4 K/mm3 (1.8-7.8); Neutrophils % 73.6 % (37.0-80.0); Platelet Count 370 K/mm3 (142-424); Red Blood Count 4.77 M/mm3 (4.20-5.40); Red Cell Distribution Width 14.4 % (11.5-17.5); White Blood Count 7.4 K/mm3 (4.8-10.8)
[2024-07-20 19:04] LABS: Alanine Aminotransferase 11 U/L (12-78); Albumin Level 4.3 g/dl (3.5-5.0); Albumin/Globulin Ratio 1.4 (1.1-1.8); Alkaline Phosphatase 150 U/L (38-126); Amylase 74 U/L (30-110); Anion Gap 17.2 mEq/L (5-15); Aspartate Amino Transferase 19 U/L (14-36); Bilirubin,Direct 0.5 mg/dl (0.0-0.4); Bilirubin,Indirect 0.1 mg/dL (0.0-0.9); Bilirubin,Total 0.6 mg/dl (0.2-1.3); Bilirubin,Unconjugated 0.1 mg/dL (0.0-1.1); Blood Urea Nitrogen 16 mg/dl (7-17); Calcium 9.7 mg/dl (8.4-10.2); Carbon Dioxide 24 mmol/L (22.0-30.0); Chloride 104 mmol/L (98-107); Chol/HDL Ratio 3.8 (1-3.5); Cholesterol 140 mg/dl (140-200); Estimated Glomerular Filt Rate 57 ml/min (>60); GFR (African American) 68 ML/MIN (>60); Glucose 89 mg/dl (74-100); HDL Cholesterol 37 mg/dl (40-60); Lipase 196 U/L (23-300); Potassium 4.2 mmoL/L (3.5-5.1); Sodium 141 mmol/L (136-145); Total Protein,Serum 7.3 g/dl (6.3-8.2); Triglycerides 176 mg/dl (30-150); VLDL Cholesterol 35 mg/dL (0-40)
[2024-07-20 19:15] LABS: Direct LDL Cholesterol 74.49 mg/dL (100-129)
[2024-07-20 19:27] LABS: HIV (1&2) Antibody Rapid NONREACTIVE (NONREACTIVE)
[2024-07-20 19:30] LABS: Thyroid Stimulating Hormone 0.13 uIU/mL (0.465-4.68)
[2024-07-20 20:11] LABS: Hemoglobin A1C 5.1 % (4.0-6.0)
[2024-07-20 20:18] LABS: Microalbumin/Creatinine Ratio 9.8
[2024-07-20 20:20] LABS: Creatinine,Urine Random 196 mg/dL (Not Estab.)
[2024-07-20 21:51] LABS: Lymphocytes % 20 % (10-50); Monocytes % 3 % (2-9); Neutrophils % 75 % (42-76); Total Cells Counted 100
[2024-07-20 21:52] LABS: Anisocytosis 1+; Macrocytosis 1+; Microcytosis 1+; Platelet Estimate Normal
[2024-07-22 10:24] LABS: HCV Ab NON REACTIVE
== END 2024-07-20 23:59 | disposition home or self-care (01) ==
LOC: RAD 13:14
PROVIDERS: PCP Family Medicine; Visit Provider Family Medicine
DX: R39.9 Unspecified symptoms and signs involving the genitourinary system; Z12.31 Encounter for screening mammogram for malignant neoplasm of breast; E13.9 Other specified diabetes mellitus without complications; I10 Essential (primary) hypertension; R10.13 Epigastric pain; Z95.5 Presence of coronary angioplasty implant and graft; E66.01 Morbid (severe) obesity due to excess calories; Z68.41 Body mass index [BMI] 40.0-44.9, adult; E03.9 Hypothyroidism, unspecified; N39.0 Urinary tract infection, site not specified
CPT/HCPCS: 77063; 77067; 80053; 80061; 80076; 82043; 82150; 82248; 82570; 83036; 83690; 84443; 85007; 85014; 85018; 85048; 85049; 86803; 87086; 87088; 87186; 87389

== ENCOUNTER 2024-07-31 09:39 | Outpatient (CLI) | payer MEDICAID, SELFPAY ==
--- NOTE | 2024-07-31 09:40 | US_ITS ---
PROCEDURE INFORMATION: Exam: US Right Breast, Complete Exam date and time: 07/31/2024 10:23 AM Age: 59 years old Clinical indication: Patient recalled for further evaluation of a right upper outer quadrant breast mass TECHNIQUE: Imaging protocol: Complete ultrasound of all four quadrants of the right breast and the retroareolar regions, including ultrasound of the axilla when performed. COMPARISON: MG MM DIG SCREENING MAMM BI W/CAD 07/20/2024 1:25 PM FINDINGS: ULTRASOUND: Breast ultrasound findings: Sonographic images of the right breast including the retroareolar region, all 4 quadrants and the axilla do not demonstrate any solid or cystic masses. Cursors were placed over normal fibrofatty tissue structures in the right 11 o'clock axis and in the right 5 o'clock axis. Fat containing normal-appearing 0.3 cm intramammary lymph node in the right 10 o'clock axis 10 cm from the nipple No architectural distortion or acoustical shadowing. No skin thickening or axillary adenopathy. IMPRESSION: No sonographic evidence of malignancy. A 0.7 cm bilobed or 2 adjacent masses in the right upper outer quadrant are not seen with certainty on sonography. The finding is likely benign in etiology. A six-month follow-up diagnostic right mammogram is recommended to ensure stability of the pattern identified. ASSESSMENT: BI-RADS Category 3: Probably benign.
== END 2024-07-31 23:59 | disposition home or self-care (01) ==
LOC: RAD 09:40
PROVIDERS: PCP Family Medicine; Visit Provider Family Medicine
DX: N63.11 Unspecified lump in the right breast, upper outer quadrant (principal); N63.14 Unspecified lump in the right breast, lower inner quadrant
CPT/HCPCS: 76641